=== PATIENT | male | born 1945 | race Caucasian/White ===

== ENCOUNTER 2021-02-06 11:47 | Inpatient (IN) | payer MEDICARE, SELFPAY ==
[2021-02-06] VITALS (12 sets, daily range): BP systolic 100–135; BP diastolic 50–76; PULSE 96–146; RESP 20–28; TEMP 36.6–38.1; O2SAT 91–100; BMI 29.0; BMI 32.9
--- NOTE | 2021-02-06 11:32 | ECG_ITS ---
APPROVED REPORT Exam: Resting ECG HR:120 bpm ECG Measurements Heart Rate 120 AXES FL 170 P 53 QRSd 106 QRS -60 QT 306 T 91 QTc 432 Conclusion Sinus tachycardia with fusion complexes Left axis deviation Inferior infarct, age undetermined Anterolateral infarct, age undetermined Abnormal ECG Electronically signed by : Colten Burk, 02/07/2021 15:08:44
--- NOTE | 2021-02-06 11:49 | XR_ITS ---
PROCEDURE: XR CHEST PORTABLE CLINICAL HISTORY: cough COMPARISON: No exams were available for comparison FINDINGS: Median sternotomy and mediastinal clips are noted. The cardiac size is at the upper limit of normal, likely accentuated by AP technique. Subsegmental atelectasis versus infiltrate is noted in the left lower zone. No other lobar consolidation, pleural effusions or pneumothorax. Degenerative changes of the visualized thoracic spine are noted. IMPRESSION: Status post CABG. Subsegmental atelectasis versus infiltrate in the left lower zone. No lobar consolidation. Dictated by: Magy Ortiz 02/06/2021 13:03 Magy Ortiz in [place] 02/06/2021 13:03
--- NOTE | 2021-02-06 12:00 | PC.NURSE ---
PT'S FAMILY AT BEDSIDE
[2021-02-06 12:11] LABS: Adenovirus,PCR Not Detected (NotDetected); Bordetella Pertussis Not Detected (NotDetected); Chlamydophila Pneumoniae, PCR Not Detected (NotDetected); Coronavirus 19, PCR Not Detected (NotDetected); Coronavirus 229E Not Detected (NotDetected); Coronavirus NL63 Not Detected (NotDetected); Coronavirus OC43 Not Detected (NotDetected); Coronovirus HKU1,PCR Not Detected (NotDetected); Human Metapneumovirus Not Detected (NotDetected); Influenza A, PCR Not Detected (NotDetected); Influenza AH1, 2009 Not Detected (NotDetected); Influenza AH1, PCR Not Detected (NotDetected); Influenza AH3,PCR Not Detected (NotDetected); Influenza B, PCR Not Detected (NotDetected); Mycoplasma Pneumoniae, PCR Not Detected (NotDetected); Parainfluenza 1, PCR Not Detected (NotDetected); Parainfluenza 2, PCR Not Detected (NotDetected); Parainfluenza 3, PCR Not Detected (NotDetected); Parainfluenza 4, PCR Not Detected (NotDetected); Respiratory Syncytial Virus Not Detected (NotDetected); Rhinovirus/Enterovirus Not Detected (NotDetected)
[2021-02-06 12:19] LABS: ABG Base Excess -10.7 mmol/L (-2.4-2.3); ABG HCO3 14.7 mmhg (22.0-26.0); ABG Oxygen Saturation 92 % (90-100); ABG PCO2 26.8 mmhg (35.0-45.0); ABG PH 7.36 mmol/L (7.35-7.45); ABG PO2 57.7 mmhg (80-100); ABG TCO2 15.6 mmhg (23-27)
[2021-02-06 12:21] LABS: Allen's Test ACCEPTABLE; Oxygen ROOM AIR %; Source L RADIAL
--- NOTE | 2021-02-06 12:34 | HMH.EDWEAK ---
ED Disposition Clinical Impression: Dehydration, Acute respiratory failure with hypoxia Sepsis Qualifiers: Sepsis type: sepsis due to unspecified organism Sepsis acute organ dysfunction status: with acute organ dysfunction Severe sepsis acute organ dysfunction type: acute renal failure Acute renal failure type: unspecified Severe sepsis shock status: without septic shock Qualified Code(s): A41.9 - Sepsis, unspecified organism; R65.20 - Severe sepsis without septic shock; N17.9 - Acute kidney failure, unspecified Left lower lobe pneumonia Qualifiers: Pneumonia type: due to unspecified organism Qualified Code(s): J18.9 - Pneumonia, unspecified organism Renal failure Qualifiers: Renal failure chronicity: acute Acute renal failure type: unspecified Qualified Code(s): N17.9 - Acute kidney failure, unspecified Disposition: Admitted As Inpatient Condition on Discharge: Serious Referrals: PCP,No [Primary Care Provider] - - Critical Care Critical Care Time: Yes Attestation: On 02/06/21, the high probability of a clinically significant, sudden or life threatening deterioration of the following system(s) required my full and direct attention, intervention and personal management. The time I documented below is in addition to time spent performing reported procedures but includes the following listed in this critical care notation. Total Critical Care Time: 30 Vital system(s) involved:: Circulatory Failure, Respiratory Failure My critical care processes included: Assessment & monitoring of V/S, Initial and Re-exams, Data Review/Interpretation, Coordinating Care, Medication Orders and management Medical Decision Making - Medical Records Medical records reviewed: Yes: I reviewed the patient's medical records. - Fernando Inquiry Pt receiving controlled substance: No Vital Signs: 02/06/21 11:50 02/06/21 12:30 02/06/21 13:00 Temperature 98 F Temperature Source Oral Pulse Rate 118 H 113 H Pulse Rate [Radial] 130 H Respiratory Rate 28 H 24 22 Blood Pressure 112/64 100/66 L Blood Pressure [Right Arm] 115/68 Blood Pressure Mean 79 74 Blood Pressure Mean [Right Arm] 83 Blood Pressure Position [Right Arm] Sitting 02 Sat by Pulse Oximetry 92 L 94 L 93 L Oxygen Delivery Method Room Air 02/06/21 13:30 Temperature Temperature Source Pulse Rate 114 H Pulse Rate [Radial] Respiratory Rate 27 H Blood Pressure 114/76 Blood Pressure [Right Arm] Blood Pressure Mean 81 Blood Pressure Mean [Right Arm] Blood Pressure Position [Right Arm] 02 Sat by Pulse Oximetry 94 L Oxygen Delivery Method - Lab Data Lab Results 02/06/21 11:50: Specimen Source L radial, O2 % Room air, ABG pH 7.36, ABG pCO2 26.8 L, ABG pO2 57.7 L, ABG HCO3 14.7 L, ABG Total CO2 15.6 L, ABG O2 Saturation 92, ABG Base Excess -10.7 L, Tin Test Acceptable 02/06/21 12:30: WBC 21.4 H*, RBC 4.34 L, Hgb 14.0 L, Hct 44.4, MCV 102.4 H, MCH 32.3 H, MCHC 31.5 L, RDW 13.4, Plt Count 218, MPV 9.2, Neut % (Auto) 94.6 H, Lymph % (Auto) 3.0 L, [place] % (Auto) 1.8, Eos % (Auto) 0.3, Baso % (Auto) 0.3, Neut # (Auto) 20.2 H, Lymph # (Auto) 0.7, [place] # (Auto) 0.4, Eos # (Auto) 0.1, Baso # (Auto) 0.1, Total Counted 100, Neutrophils % (Manual) 87 H, Band Neutrophils % 7.0, Lymphocytes % (Manual) 4 L, Monocytes % (Manual) 2, Platelet Estimate Normal, RBC Morphology Normal 02/06/21 12:30: PT 13.0 H, INR 1.11 H, APTT 31.0 H 02/06/21 12:30: Sodium 135 L, Potassium 4.9, Chloride 102, Carbon Dioxide 19 L, Anion Gap 18.9 H, BUN 30 H, Creatinine 2.60 H, Estimated Creat Clear 27, Estimated GFR 24 L, Est GFR ( Amer) 29 L, Glucose 364 H, Calcium 9.4, Total Bilirubin 3.4 H, AST 42, ALT 80 H, Alkaline Phosphatase 203 H, Troponin I 0.04 H, NT-Pro-B Natriuret Pep 9270 H, Total Protein 7.7, Albumin 4.1, Globulin 3.6 H, Albumin/Globulin Ratio 1.1, Lipase 23 02/06/21 12:30: Chlamy pneumoniae PCR Not detected, Adenovirus (PCR) Not detected, B. pertussis DNA (PCR) Not detected, Coronavi
[2021-02-06 12:48] LABS: Basophils # 0.1 K/mm3 (0-0.2); Basophils % 0.3 % (0.1-2.0); Eosinophils # 0.1 K/mm3 (0.0-0.4); Eosinophils % 0.3 % (0.1-12.0); Hematocrit 44.4 % (42.0-52.0); Lymphocytes # 0.7 K/mm3 (0.7-4.5); Mean Corpuscular HGB Conc 31.5 g/dL (31.8-35.4); Mean Corpuscular Hemoglobin 32.3 pg (27.0-31.2); Mean Corpuscular Volume 102.4 fl (80-94); Mean Platelet Volume 9.2 fl (7.4-10.4); Monocytes # 0.4 K/mm3 (0.1-1.0); Monocytes % 1.8 % (1.7-9.3); Neutrophils # 20.2 K/mm3 (1.8-7.8); Neutrophils % 94.6 % (37.0-80.0); Platelet Count 218 K/mm3 (142-424); Red Blood Count 4.34 M/mm3 (4.60-6.20); Red Cell Distribution Width 13.4 % (11.5-17.5); White Blood Count 21.4 K/mm3 (4.8-10.8)
[2021-02-06 12:51] LABS: MANUAL DIFFERENTIAL MANUAL DIFFERENTIAL (MANUAL DIFF)
[2021-02-06 12:58] LABS: Lymphocytes % 4 % (10-50); Monocytes % 2 % (2-9); Neutrophils % 87 % (42-76); Platelet Estimate Normal; RBC Morphology Normal; Total Cells Counted 100
[2021-02-06 12:59] LABS: Chloride 102 mmol/L (98-107); Potassium 4.9 mmoL/L (3.5-5.1); Sodium 135 mmol/L (136-145)
--- NOTE | 2021-02-06 13:00 | PC.NURSE ---
UPDATED ON PLAN OF CARE
[2021-02-06 13:01] LABS: Blood Urea Nitrogen 30 mg/dl (9-20); Creatinine Clearance Estimated 27 mL/min (50-200); Estimated Glomerular Filt Rate 24 ml/min (>60); GFR (African American) 29 ML/MIN (>60)
[2021-02-06 13:02] LABS: Alanine Aminotransferase 80 U/L (12-78); Albumin Level 4.1 g/dl (3.5-5.0); Albumin/Globulin Ratio 1.1 (1.1-1.8); Alkaline Phosphatase 203 U/L (38-126); Anion Gap 18.9 mEq/L (5-15); Aspartate Amino Transferase 42 U/L (17-59); Bilirubin,Total 3.4 mg/dl (0.2-1.3); Calcium 9.4 mg/dl (8.4-10.2); Carbon Dioxide 19 mmol/L (22.0-30.0); Globulin 3.6 g/dL (1.3-3.2); Glucose 364 mg/dl (74-100); Lipase 23 U/L (23-300); Total Protein,Serum 7.7 g/dl (6.3-8.2)
[2021-02-06 13:05] LABS: INR 1.11 (0.9-1.1)
[2021-02-06 13:10] LABS: NT Pro Brain Natriuretic Pep. 9270 pg/mL (0-450)
[2021-02-06 13:13] LABS: Troponin I 0.04 ng/ml (0.00-0.034)
[2021-02-06 13:53] LABS: Microscopic, Urine URINE MICROSCOPIC (MICROSCOPIC)
[2021-02-06 13:55] LABS: Lactic Acid 6.4 mmol/L (0.7-2.1)
[2021-02-06 13:55] LABS: Appearance,Urine CLEAR (Clear); Blood, Urine TRACE-L (Negative); Color,Urine YELLOW (Yellow); Glucose,Urine (UA) 3+ (Negative); Ketones,Urine TRACE (Negative); Leukocyte Esterase,Urine Negative (Negative); Nitrate,Urine Negative (Negative); PH,Urine 5.5 (5.0-8.5); Protein,Urine 1+ (Negative); Specific Gravity, Urine 1.025 (1.005-1.030); Urobilinogen,Urine 0.2 EU/dl (0.2)
[2021-02-06 13:58] LABS: Bilirubin,Urine 1+ (Negative)
[2021-02-06 14:10] LABS: RBC,Urine Occasional #/hpf (0-3); Squamous Epithelial Cell,Urine Occasional #/hpf (0-5)
--- NOTE | 2021-02-06 15:00 | PC.NURSE ---
REPORT CALLED TO FLOOR
--- NOTE | 2021-02-06 15:05 | PC.NURSE ---
Pt arrived to the floor at this time.
--- NOTE | 2021-02-06 15:19 | P.CONPHA_ITS ---
[facility] VTE Monitoring - Patient Demographics Admission date: 02/06/21 Report Date: 02/06/21 Time: 15:19 Allergies/Adverse Reactions: Patient Allergies No Known Allergies Allergy (Verified 02/06/21 11:56) Height: 1.68 m Weight: 81.647 kg Patient Problems: Current Active Problems Sepsis (Acute) Dehydration (Acute) Left lower lobe pneumonia (Acute) Acute respiratory failure with hypoxia (Acute) Renal failure (Acute) - VTE Risk Labs: VTE Related Lab Results Hgb 14.0 g/dL (14.1-18.0) L 02/06/21 12:30 Hct 44.4 % (42.0-52.0) 02/06/21 12:30 Plt Count 218 K/mm3 (142-424) 02/06/21 12:30 PT 13.0 seconds (10.1-12.5) H 02/06/21 12:30 INR 1.11 (0.9-1.1) H 02/06/21 12:30 APTT 31.0 seconds (22.8-30.6) H 02/06/21 12:30 BUN 30 mg/dl (9-20) H 02/06/21 12:30 Creatinine 2.60 mg/dl (0.66-1.25) H 02/06/21 12:30 Estimated Creat Clear 27 mL/min (50-200) 02/06/21 12:30 - Prophylaxis VTE Prophylaxis Ordered?: Yes Types of VTE Prophylaxis: TEDS Knee High, Pharmacological Location of Applied Device: Bilateral Lower Extremeties Pharmacologic Type: Enoxaparin
--- NOTE | 2021-02-06 16:04 | HMH.CNCARD ---
History of Present Illness Consult date: 02/06/21 Requesting physician: Luis E Conteh Consult reason: shortness of breath Chief complaint: SOA, weakness Additional Medical History:: 1. Coronary artery disease A. History of bypass, 2019, [facility] in [place] B. Ischemic cardiomyopathy with ejection fraction 25-30% with discussion regarding AICD made in [place] but elected to hold off since patient was moving to [place] 2. Diabetes mellitus, insulin requiring, treated for many years A. Chronic kidney disease, creatinine 2.6, creatinine clearance 27, GFR 24, 02/2021 3. Hypertension 4. Hyperlipidemia 5. History of CVA with left side affected, approximately 6. History of paroxysmal atrial fibrillation, on Eliquis therapy History of present illness: 75-year-old male presented to the emergency department with some generalized weakness and difficulty breathing. Patient is actually moved up here the last few months from [place] and is living with his daughter. He is a longstanding history of heart disease and heart failure. Patient states that over the last 3 days he has been having some generalized weakness. Is been unable to get out of bed. He states that he feels like his breathing is worse. He has had to sleep in a recliner the last few nights. Denies any cough or hemoptysis. Is not having any associated chest pain or palpitations. No abdominal pain. No diarrhea. Denies any fevers or chills. He is not having any headache or change in vision. No focal weakness. The above per Dr. Thompson Patient confirms above account. He became alarmed when he vomited today which he relates occurring prior to both his heart attack and subsequent bypass as well as his stroke. He does relate severe cardiomyopathy with EF of 25 to 30% with discussion regarding AICD by his physicians up in [place] but due to his impending plans to move to [place] it was elected to hold off on that. He moved down about four 5 months ago and has not established a physician. He notes unquenchable thirst recently with increasing shortness of breath and lower extremity edema. Cardiology consulted due to elevated BNP, tachycardic heart rate and significant cardiac history. Patient does admit to missing some of his medications both morning and evening time. EKG is sinus tachycardia 120 bpm with evidence of prior inferior and anterolateral MN. Left axis deviation noted. [facility] History Medical History: Reports:: Diabetes Mellitus Type 2, Heart Murmur, Hyperlipidemia, Hypertension, Myocardial Infarction Denies:: Cancer, Diabetes Mellitus Type 1, Internal Pacemaker, MRSA *Have you ever received a pneumonia vaccine?: Yes *Have you received a flu vaccine this season?: No Other Surgeries: Yes: CABG, Open Heart Surgery. No: Pacemaker Amputation: No Fractures: No - *Social History Last grade of school completed: High school graduate Alcohol Intake: never *Occupational Status:: retired Housing: other Household Members: other *Travel in the last 8 weeks: None Family Hx:: Non-contributory Meds Home Medications Medication Instructions Recorded Confirmed Type Acarbose 25 mg PO AC 02/06/21 02/06/21 History Apixaban [Eliquis 5mg Tablet] 5 mg PO BID 02/06/21 02/06/21 History Aspirin [Aspirin 81mg chewable 81 mg PO DAILY 02/06/21 02/06/21 History tab] Atorvastatin Calcium [Lipitor 40mg 20 mg PO HS 02/06/21 02/06/21 History Tab] Bumetanide [Bumex 1mg tablet] 1 mg PO DIRECTED 02/06/21 02/06/21 History Tamsulosin HCl 0.4 mg PO DAILY 02/06/21 02/06/21 History carvediloL [Carvedilol 3.125mg Tab] 3.125 mg PO BID 02/06/21 02/06/21 History Allergies Allergy/AdvReac Type Severity Reaction Status Date / Time No Known Allergies Allergy Verified 02/06/21 11:56 Exam Vital signs and Labs for Last 24 Hours: Temp Pulse Resp BP Pulse Ox 98 F 112 H 22 100/55 L 100 02/06/21 15:05 02/06/21 15:05
--- NOTE | 2021-02-06 16:24 | HMH.HP ---
*Admission Date: 02/06/21 <Lupe Steiner 02/06/21 16:32> *Chief complaint: Shortness of breath, vomiting, fatigue <Lupe Steiner 02/06/21 16:32> *History of present illness: 75-year-old male presented to the emergency department with some generalized weakness and difficulty breathing. Patient actually moved up here the last few months from [place] and is living with his daughter. He is a longstanding history of heart disease and heart failure. Patient states that over the last 3 days he has been having some generalized weakness. Has been unable to get out of bed. He states that he feels like his breathing is worse. He has had to sleep in a recliner the last few nights. Denies any cough or hemoptysis. Is not having any associated chest pain or palpitations. No abdominal pain. No diarrhea. Denies any fevers or chills. He is not having any headache or change in vision. No focal weakness. (above as per ER physician) He was evaluated in the emergency room and his white count was found to be 21,000. A chest x-ray revealed subsegmental atelectasis versus infiltrate in the left lower lobe. He was tachycardic and his renal functions were elevated. His lactic acid was elevated as well. He was felt to be septic and was started on sepsis protocol and admitted for further evaluation and treatment. His BNP and troponin were also elevated, therefore cardiology was consulted. Of note he does say he had some vomiting yesterday but none today. <Lupe Steiner 02/06/21 16:32> [place] History I have reviewed the patient's past medical history: Yes <Lupe Steiner 02/06/21 16:32> Medical History: Reports:: Atrial Fibrillation, Congestive Heart Failure, Coronary Artery Disease, Cerebrovascular Accident, Diabetes Mellitus Type 2, Heart Murmur, Hyperlipidemia, Hypertension, Myocardial Infarction Denies:: Cancer, Diabetes Mellitus Type 1, Internal Pacemaker, MRSA <Lupe Steiner 02/06/21 16:32> *Have you ever received a pneumonia vaccine?: Yes <Lupe Steiner 02/06/21 16:32> *Have you received a flu vaccine this season?: No <Lupe Steiner 02/06/21 16:32> Other Surgeries: Yes: CABG, Hernia Repair, Open Heart Surgery, Other (Pilonidal cyst x 2). No: Pacemaker <Lupe Steiner 02/06/21 16:32> Amputation: No <Lupe Steiner 02/06/21 16:32> Fractures: No <Lupe Steiner 02/06/21 16:32> - *Social History Last grade of school completed: High school graduate <Lupe Steiner 02/06/21 16:32> Alcohol Intake: never <Lupe Steiner 02/06/21 16:32> *Occupational Status:: retired <Lupe Steiner 02/06/21 16:32> Housing: other <Lupe Steiner 02/06/21 16:32> Household Members: other <Lupe Steiner 02/06/21 16:32> *Travel in the last 8 weeks: None <Lupe Steiner 02/06/21 16:32> Family Hx:: Coronary Artery Disease <Lupe Steiner 02/06/21 16:32> Review of Systems - Constitutional Reports fatigue, Reports weakness, Denies fever(s) <Lupe Steiner 02/06/21 16:32> - Eyes Denies blurry vision, Denies double vision <Lupe Steiner 02/06/21 16:32> - ENT Reports nasal congestion, Denies sore throat <Lupe Steiner 02/06/21 16:32> - *Cardiovascular Reports shortness of breath, Denies chest pain, Denies rapid, pounding, or irregular heartbeat <Lupe Steiner 02/06/21 16:32> - *Respiratory Reports chest congestion, Reports cough, Reports shortness of breath <Lupe Steiner 02/06/21 16:32> - *Gastrointestinal Reports vomiting, Denies abdominal pain, Denies loose stools, Denies nausea <Lupe Steiner 02/06/21 16:32> - *Genitourinary Denies difficulty urinating, Denies painful urination <Lupe Steiner 02/06/21 16:32> - *Musculoskeletal Reports joint pain (bilateral hips) <Lupe Steiner 02/06/21 16:32> - *Neurologic Reports weakness, Denies headache(s), Denies dizziness <Lupe Steiner - 02/06/21 16:32> Meds Home Medications Medication Instructions Recorded Confirmed Type Acarbose 25 mg PO
[2021-02-06 17:24] LABS: Troponin I 0.05 ng/ml (0.00-0.034)
[2021-02-06 17:28] LABS: Reflex Lactic Add Lactic Reflex
[2021-02-06 18:26] LABS: Lactic Acid Follow Up (RFLX 1) 5.8 mmol/L (0.7-2.1)
--- NOTE | 2021-02-06 18:27 | PC.NURSE ---
Dr. Conteh notified of lactic acid 5.8
[2021-02-06 18:31] LABS: Troponin I 0.05 ng/ml (0.00-0.034)
--- NOTE | 2021-02-06 19:32 | PC.NURSE ---
RA SATS 91%. RETURN PT TO 2LPM NC
[2021-02-06 20:05] LABS: Reflex Lactic (2 hrs) Add Lactic Reflex
[2021-02-06 21:15] LABS: Lactic Acid Follow up (RFLX 2) 3.9 mmol/L (0.7-2.1)
[2021-02-06 23:45] LABS: POC Glucose,Bedside 181 (70-110)
[2021-02-06 23:45] LABS: POC Glucose,Bedside 275 (70-110)
[2021-02-07] VITALS (11 sets, daily range): BP systolic 107–129; BP diastolic 56–64; PULSE 76–100; RESP 17–24; TEMP 36.7–37.1; O2SAT 80–99; BMI 32.7
[2021-02-07 05:35] LABS: POC Glucose,Bedside 112 (70-110)
--- NOTE | 2021-02-07 05:44 | PC.NURSE ---
Received call from LAB, Lily Hunter at 0540 stating that Patient has 3 Positive Blood Cultures. Two Aerobic bottles=GRAM + Cocci in chains and one Anaerobic bottle=GRAM + Cocci in chains. Will notify provider.
--- NOTE | 2021-02-07 05:49 | PC.NURSE ---
Lea WEST at 0545, awaiting response
--- NOTE | 2021-02-07 05:54 | PC.NURSE ---
Pt admitted for Sepsis, MAP WDL and Systolic not below 100 during this shift. Patient afebril. Fluids at 150 mL per hour and ABx administered per order. Pt in NAD, resting comfortably with eyes closed. Will continue to monitor for any acute changes.
[2021-02-07 06:46] LABS: Chloride 110 mmol/L (98-107); Potassium 4.8 mmoL/L (3.5-5.1); Sodium 133 mmol/L (136-145)
[2021-02-07 06:49] LABS: Alanine Aminotransferase 33 U/L (12-78); Albumin Level 2.7 g/dl (3.5-5.0); Albumin/Globulin Ratio 0.8 (1.1-1.8); Alkaline Phosphatase 115 U/L (38-126); Anion Gap 9.8 mEq/L (5-15); Aspartate Amino Transferase 30 U/L (17-59); Bilirubin,Total 1.9 mg/dl (0.2-1.3); Blood Urea Nitrogen 29 mg/dl (9-20); Carbon Dioxide 18 mmol/L (22.0-30.0); Creatinine Clearance Estimated 40 mL/min (50-200); Estimated Glomerular Filt Rate 35 ml/min (>60); GFR (African American) 42 ML/MIN (>60); Globulin 3.2 g/dL (1.3-3.2); Total Protein,Serum 5.9 g/dl (6.3-8.2)
[2021-02-07 06:50] LABS: Glucose 112 mg/dl (74-100)
[2021-02-07 06:59] LABS: Basophils # 0.1 K/mm3 (0-0.2); Basophils % 0.3 % (0.1-2.0); Eosinophils # 0.1 K/mm3 (0.0-0.4); Eosinophils % 0.4 % (0.1-12.0); Lymphocytes # 1.2 K/mm3 (0.7-4.5); Lymphocytes % 7.5 % (10-50); Mean Corpuscular HGB Conc 32.6 g/dL (31.8-35.4); Mean Corpuscular Hemoglobin 32.3 pg (27.0-31.2); Mean Corpuscular Volume 98.9 fl (80-94); Mean Platelet Volume 9.5 fl (7.4-10.4); Monocytes # 0.5 K/mm3 (0.1-1.0); Neutrophils # 14.1 K/mm3 (1.8-7.8); Neutrophils % 88.7 % (37.0-80.0); Platelet Count 155 K/mm3 (142-424); Red Blood Count 3.43 M/mm3 (4.60-6.20); White Blood Count 15.9 K/mm3 (4.8-10.8)
[2021-02-07 07:14] LABS: MANUAL DIFFERENTIAL MANUAL DIFFERENTIAL (MANUAL DIFF)
[2021-02-07 07:31] LABS: Calcium 7.7 mg/dl (8.4-10.2)
--- NOTE | 2021-02-07 08:29 | HMH.ACPN2 ---
<Lupe Steiner - Last Filed: 02/07/21 08:29> Internal Medicine - PN: Subj *Date: 02/07/21 *Time: 08:29 Interval history: Patient states he is feeling a little bit better this morning. His shortness of breath is improved slightly. He denies any pain other than in his buttocks from sitting in the bed all night. He states he was able to rest and eat a little bit of food. Exam Vital signs and Labs for Last 24 Hours: Temp Pulse Resp BP Pulse Ox 98.1 F 100 H 20 113/60 96 02/07/21 07:39 02/07/21 07:39 02/07/21 07:39 02/07/21 07:39 02/07/21 07:39 Laboratory Results - last 24 hr 02/06/21 11:50: Specimen Source L radial, O2 % Room air, ABG pH 7.36, ABG pCO2 26.8 L, ABG pO2 57.7 L, ABG HCO3 14.7 L, ABG Total CO2 15.6 L, ABG O2 Saturation 92, ABG Base Excess -10.7 L, Tin Test Acceptable 02/06/21 12:30: WBC 21.4 H*, RBC 4.34 L, Hgb 14.0 L, Hct 44.4, MCV 102.4 H, MCH 32.3 H, MCHC 31.5 L, RDW 13.4, Plt Count 218, MPV 9.2, Neut % (Auto) 94.6 H, Lymph % (Auto) 3.0 L, [place] % (Auto) 1.8, Eos % (Auto) 0.3, Baso % (Auto) 0.3, Neut # (Auto) 20.2 H, Lymph # (Auto) 0.7, [place] # (Auto) 0.4, Eos # (Auto) 0.1, Baso # (Auto) 0.1, Total Counted 100, Neutrophils % (Manual) 87 H, Band Neutrophils % 7.0, Lymphocytes % (Manual) 4 L, Monocytes % (Manual) 2, Platelet Estimate Normal, RBC Morphology Normal 02/06/21 12:30: PT 13.0 H, INR 1.11 H, APTT 31.0 H 02/06/21 12:30: Sodium 135 L, Potassium 4.9, Chloride 102, Carbon Dioxide 19 L, Anion Gap 18.9 H, BUN 30 H, Creatinine 2.60 H, Estimated Creat Clear 27, Estimated GFR 24 L, Est GFR ( Amer) 29 L, Glucose 364 H, Calcium 9.4, Total Bilirubin 3.4 H, AST 42, ALT 80 H, Alkaline Phosphatase 203 H, Troponin I 0.04 H, NT-Pro-B Natriuret Pep 9270 H, Total Protein 7.7, Albumin 4.1, Globulin 3.6 H, Albumin/Globulin Ratio 1.1, Lipase 23 02/06/21 12:30: Chlamy pneumoniae PCR Not detected, Adenovirus (PCR) Not detected, B. pertussis DNA (PCR) Not detected, Coronavirus OC43 (PCR) Not detected, Coronavirus HKU1 (PCR) Not detected, Coronavirus 229E (PCR) Not detected, SARS-CoV-2 (PCR) Not detected, Coronavirus NL63 (PCR) Not detected, Human Metapneumovir PCR Not detected, Influenza A (H1) PCR Not detected, Influ A (H1N1/09) PCR Not detected, Influenza A (H3) PCR Not detected, Influenza Type A (PCR) Not detected, Influenza Type B (PCR) Not detected, M. pneumoniae (PCR) Not detected, Parainfluenza 1 (PCR) Not detected, Parainfluenza 2 (PCR) Not detected, Parainfluenza 3 (PCR) Not detected, Parainfluenza 4 (PCR) Not detected, RSV (PCR) Not detected, Entero/Rhino (PCR) Not detected 02/06/21 13:14: Lactate 6.4 H 02/06/21 13:45: Urine Color Yellow, Urine Appearance Clear, Urine pH 5.5, Ur Specific [place] 1.025, Urine Protein 1+, Urine Glucose (UA) 3+, Urine Ketones Trace, Urine Blood Trace-l, Urine Nitrate Negative, Urine Bilirubin 1+ A, Urine Urobilinogen 0.2, Ur Leukocyte Esterase Negative, Urine RBC Occasional, Urine WBC 3-5, Ur Squamous Epith Cells Occasional, Urine Bacteria None 02/06/21 16:48: Troponin I 0.05 H 02/06/21 16:59: POC Glucose 275 H 02/06/21 17:50: Troponin I 0.05 H 02/06/21 17:50: Lactate 5.8 H 02/06/21 20:55: Lactate 3.9 H 02/06/21 21:05: POC Glucose 181 H 02/07/21 05:24: POC Glucose 112 H 02/07/21 05:51: WBC 15.9 H D, RBC 3.43 L, Hct 34.0 L, MCV 98.9 H, MCH 32.3 H, MCHC 32.6, RDW 14.0, Plt Count 155 D, MPV 9.5, Neut % (Auto) 88.7 H, Lymph % (Auto) 7.5 L, [place] % (Auto) 3.0, Eos % (Auto) 0.4, Baso % (Auto) 0.3, Neut # (Auto) 14.1 H, Lymph # (Auto) 1.2, [place] # (Auto) 0.5, Eos # (Auto) 0.1, Baso # (Auto) 0.1 02/07/21 05:51: Sodium 133 L, Potassium 4.8, Chloride 110 H, Carbon Dioxide 18 L, Anion Gap 9.8, BUN 29 H, Creatinine 1.90 H D, Estimated Creat Clear 40, Estimated GFR 35 L, Est GFR ( Amer) 42 L D, Glucose 112 H D, Calcium 7.7 L D, Total Bilirubin 1.9 H, AST 30 D, ALT 33 D, Alkaline Phosphatase 115, Total Protein 5.9 L, Albumin 2.7 L D, Globulin 3.2, Albumin/Globulin Ratio 0.8 L I & O for Last 24 hours:
[2021-02-07 09:04] LABS: Eosinophils % 1 % (0-3); Lymphocytes % 9 % (10-50); Monocytes % 4 % (2-9); Neutrophils % 86 % (42-76); Platelet Estimate Normal; RBC Morphology Normal; Total Cells Counted 100
[2021-02-07 09:08] LABS: Hemoglobin 11.1 g/dL (14.1-18.0)
--- NOTE | 2021-02-07 10:45 | HMH.PHAINT ---
HOME MEDICATIONS RECONCILED FROM [facility] ([place]) AND DR. MENDEZ'S OFFICE ( ). DAUGHTER SAYS SHE WILL BRING IN HIS HOME MEDICATION BOTTLES.
[2021-02-07 12:00] LABS: POC Glucose,Bedside 133 (70-110)
--- NOTE | 2021-02-07 12:29 | PC.NURSE ---
DR. MICHAELS AWARE OF BLOOD CULTURES. NNO.
--- NOTE | 2021-02-07 14:43 | PC.NURSE ---
RA OBTAINED ON PT. 97%.
[2021-02-07 17:14] LABS: POC Glucose,Bedside 151 (70-110)
--- NOTE | 2021-02-07 19:08 | PC.NURSE ---
return patient to 2lpm n/c
--- NOTE | 2021-02-07 19:39 | PC.NURSE ---
PT HAD A GOOD DAY. PT AMBULATED TO CHAIR AND BED WITH 2 ASSIST AND A WALKER. PT DID WELL. PT HAS NOT EXPRESSED ANY PAIN OR SOB. HE IS NOW ON RA. VSS. SAFETY ALARM ON. CALL BRANCH WITHIN REACH.
[2021-02-07 21:04] LABS: POC Glucose,Bedside 139 (70-110)
[2021-02-08] VITALS (7 sets, daily range): BP systolic 113–140; BP diastolic 63–79; PULSE 80–100; RESP 16; TEMP 36.7–37.3; O2SAT 97–98; BMI 34.0
--- NOTE | 2021-02-08 04:23 | PC.NURSE ---
No acute changes. Pt has slept at intervals this shift. No complaints stated. VSS. Pt is currently on 1L O2 NC. Lungs noted to have crackles to bases. BS active. F/C draining to bedside with clear, yellow urine. Medications administered per mar. Call light within reach. No concerns noted at this time. Will continue to monitor.
[2021-02-08 06:47] LABS: Basophils % 0.2 % (0.1-2.0); Eosinophils # 0.4 K/mm3 (0.0-0.4); Eosinophils % 3.8 % (0.1-12.0); Hematocrit 34.7 % (42.0-52.0); Hemoglobin 10.6 g/dL (14.1-18.0); Lymphocytes # 0.8 K/mm3 (0.7-4.5); Lymphocytes % 6.9 % (10-50); Mean Corpuscular HGB Conc 30.7 g/dL (31.8-35.4); Mean Corpuscular Hemoglobin 30.6 pg (27.0-31.2); Mean Corpuscular Volume 99.9 fl (80-94); Mean Platelet Volume 9.5 fl (7.4-10.4); Monocytes # 0.3 K/mm3 (0.1-1.0); Monocytes % 2.8 % (1.7-9.3); Neutrophils # 9.4 K/mm3 (1.8-7.8); Neutrophils % 86.2 % (37.0-80.0); Platelet Count 189 K/mm3 (142-424); Red Blood Count 3.47 M/mm3 (4.60-6.20); Red Cell Distribution Width 13.4 % (11.5-17.5); White Blood Count 10.9 K/mm3 (4.8-10.8)
[2021-02-08 06:51] LABS: MANUAL DIFFERENTIAL MANUAL DIFFERENTIAL (MANUAL DIFF)
[2021-02-08 07:01] LABS: POC Glucose,Bedside 141 (70-110)
[2021-02-08 07:04] LABS: Chloride 107 mmol/L (98-107); Potassium 4.4 mmoL/L (3.5-5.1); Sodium 133 mmol/L (136-145)
[2021-02-08 07:07] LABS: Anion Gap 8.4 mEq/L (5-15); Blood Urea Nitrogen 30 mg/dl (9-20); Calcium 7.9 mg/dl (8.4-10.2); Carbon Dioxide 22 mmol/L (22.0-30.0); Creatinine Clearance Estimated 44 mL/min (50-200); Estimated Glomerular Filt Rate 37 ml/min (>60); GFR (African American) 44 ML/MIN (>60); Glucose 148 mg/dl (74-100)
[2021-02-08 08:24] LABS: Eosinophils % 4 % (0-3); Lymphocytes % 7 % (10-50); Monocytes % 3 % (2-9); Neutrophils % 86 % (42-76); RBC Morphology Normal; Total Cells Counted 100
[2021-02-08 08:25] LABS: Platelet Estimate Normal
--- NOTE | 2021-02-08 08:28 | HMH.ACPN2 ---
Internal Medicine - PN: Subj *Date: 02/08/21 *Time: 08:54 Interval history: Patient feels better today, no new complaints. Exam Vital signs and Labs for Last 24 Hours: Temp Pulse Resp BP Pulse Ox 99.1 F 96 H 16 140/69 98 02/08/21 07:38 02/08/21 07:38 02/08/21 07:38 02/08/21 07:38 02/08/21 07:38 Laboratory Results - last 24 hr 02/07/21 05:51: Hgb 11.1 L D, Total Counted 100, Neutrophils % (Manual) 86 H, Lymphocytes % (Manual) 9 L, Monocytes % (Manual) 4, Eosinophils % (Manual) 1, Platelet Estimate Normal, RBC Morphology Normal 02/07/21 11:51: POC Glucose 133 H 02/07/21 17:05: POC Glucose 151 H 02/07/21 20:53: POC Glucose 139 H 02/08/21 06:25: WBC 10.9 H D, RBC 3.47 L, Hgb 10.6 L, Hct 34.7 L, MCV 99.9 H, MCH 30.6, MCHC 30.7 L, RDW 13.4, Plt Count 189, MPV 9.5, Neut % (Auto) 86.2 H, Lymph % (Auto) 6.9 L, [place] % (Auto) 2.8, Eos % (Auto) 3.8, Baso % (Auto) 0.2, Neut # (Auto) 9.4 H, Lymph # (Auto) 0.8, [place] # (Auto) 0.3, Eos # (Auto) 0.4, Baso # (Auto) 0.0, Total Counted 100, Neutrophils % (Manual) 86 H, Lymphocytes % (Manual) 7 L, Monocytes % (Manual) 3, Eosinophils % (Manual) 4 H, Platelet Estimate Normal, RBC Morphology Normal 02/08/21 06:25: Sodium 133 L, Potassium 4.4, Chloride 107, Carbon Dioxide 22 D, Anion Gap 8.4, BUN 30 H, Creatinine 1.80 H, Estimated Creat Clear 44, Estimated GFR 37 L, Est GFR ( Amer) 44 L, Glucose 148 H, Calcium 7.9 L 02/08/21 06:52: POC Glucose 141 H Vital Signs - 24 hr 02/07/21 11:39 02/07/21 12:00 02/07/21 16:00 Temperature 98.0 F 98.0 F 98.5 F Pulse Rate 90 92 H Pulse Rate [Radial] 87 87 76 Respiratory Rate 18 18 17 Blood Pressure [Right Arm] 108/57 L 108/57 L 107/64 L 02 Sat by Pulse Oximetry 99 99 95 02/07/21 19:07 02/07/21 19:30 02/07/21 20:00 Temperature 98.6 F Pulse Rate 100 H Pulse Rate [Radial] 94 H Respiratory Rate 20 Blood Pressure [Right Arm] 129/61 02 Sat by Pulse Oximetry 80 L 96 02/07/21 23:55 02/08/21 00:00 02/08/21 04:00 Temperature 98.7 F 98.1 F Pulse Rate 90 80 Pulse Rate [Radial] 85 89 Respiratory Rate 24 16 Blood Pressure [Right Arm] 111/62 113/64 02 Sat by Pulse Oximetry 98 98 02/08/21 07:38 Temperature 99.1 F Pulse Rate Pulse Rate [Radial] 96 H Respiratory Rate 16 Blood Pressure [Right Arm] 140/69 02 Sat by Pulse Oximetry 98 I & O for Last 24 hours: Intake & Output 02/05/21 02/06/21 02/07/21 02/08/21 23:59 23:59 23:59 23:59 Intake Total 3120 / 3120 3070 / 3070 240 / 240 Output Total 300 / 600 4050 / 4050 Balance 2820 / 2520 -980 / -980 240 / 240 Weight 192 lb 191 lb 12.835 oz 199 lb Microbiology Reports for the Last 24 Hours: Microbiology 02/06/21 13:14 Blood Blood Culture - Preliminary Gram Positive Cocci 02/06/21 13:14 Blood Blood Culture - Preliminary Gram Positive Cocci 02/06/21 Unknown Sputum - Expectorated Sputum Gram Stain - Final 02/06/21 Unknown Sputum - Expectorated Sputum Sputum Culture - Preliminary - Constitutional no acute distress - *Routine HEENT Exam Head: Present: normocephalic Eye: Present: EOMI ENT: Present: mucous membranes moist - *Routine Neck Exam Present: supple. Absent: lymphadenopathy - *Routine Respiratory Exam Present: crackles (few bibasilar). Absent: wheezes - *Routine Cardiovascular Exam Present: RRR - *Routine Abdominal Exam Present: soft, normoactive bowel sounds. Absent: tenderness - *Routine Extremities Exam Absent: cyanosis, clubbing, edema - *Routine Skin Exam Present: warm. Absent: rash - *Routine Neurological Exam Present: alert Assessment and Plan (1) Acute respiratory failure with hypoxia Status: Acute Category: Medical Code(s): J96.01 - Acute respiratory failure with hypoxia (2) Sepsis Status: Acute Qualifiers: Sepsis type: sepsis due to unspecified organism Sepsis acute organ dysfunction status: with acute organ dysfunct
[2021-02-08 11:05] LABS: POC Glucose,Bedside 215 (70-110)
--- NOTE | 2021-02-08 16:05 | PC.NURSE ---
pt has done well today. pt has ambulated with walker and one staff member to chair, and to bathroom for a shower using the shower chair. His olivas was removed at 1515. no complaints this shift. pt currently taking a nap in bed. safety in place, call light within reach. vss. will cont. to monitor.
[2021-02-08 17:01] LABS: POC Glucose,Bedside 174 (70-110)
[2021-02-08 20:38] LABS: POC Glucose,Bedside 168 (70-110)
[2021-02-09] VITALS (8 sets, daily range): BP systolic 101–135; BP diastolic 40–63; PULSE 74–95; RESP 16–21; TEMP 36.8–37.2; O2SAT 91–95; BMI 32.9
--- NOTE | 2021-02-09 04:24 | PC.NURSE ---
shift summary pts lung sounds are diminishedwith some coarse crackles with sats maintained 94% or above on room air, with a rate ranging from 18-21. pt is alert and oriented X4. pt is able to get up and walk with assist X1. pt denies any pain, nausea, vomiting or diarrhea.
[2021-02-09 05:36] LABS: POC Glucose,Bedside 156 (70-110)
--- NOTE | 2021-02-09 07:58 | HMH.ACPN2 ---
Internal Medicine - PN: Subj *Date: 02/09/21 *Time: 07:58 Interval history: Patient did well overnight, no new complaints. Exam Vital signs and Labs for Last 24 Hours: Temp Pulse Resp BP Pulse Ox 99.0 F 95 H 18 119/60 95 02/09/21 07:44 02/09/21 07:44 02/09/21 07:44 02/09/21 07:44 02/09/21 07:44 Laboratory Results - last 24 hr 02/08/21 06:25: Total Counted 100, Neutrophils % (Manual) 86 H, Lymphocytes % (Manual) 7 L, Monocytes % (Manual) 3, Eosinophils % (Manual) 4 H, Platelet Estimate Normal, RBC Morphology Normal 02/08/21 10:58: POC Glucose 215 H 02/08/21 16:54: POC Glucose 174 H 02/08/21 20:28: POC Glucose 168 H 02/09/21 05:26: POC Glucose 156 H Vital Signs - 24 hr 02/08/21 08:00 02/08/21 12:00 02/08/21 16:00 Temperature 98.4 F 98.0 F Pulse Rate 100 H 80 80 Pulse Rate [Radial] 92 H 91 H Respiratory Rate 16 16 Blood Pressure [Right Arm] 125/67 122/63 02 Sat by Pulse Oximetry 97 98 02/08/21 20:00 02/09/21 00:00 02/09/21 04:00 Temperature 98.8 F 99.0 F 98.7 F Pulse Rate 80 85 80 Pulse Rate [Radial] 93 H 87 94 H Respiratory Rate 16 21 19 Blood Pressure [Right Arm] 126/79 101/57 L 110/57 L 02 Sat by Pulse Oximetry 98 95 94 L 02/09/21 07:44 Temperature 99.0 F Pulse Rate Pulse Rate [Radial] 95 H Respiratory Rate 18 Blood Pressure [Right Arm] 119/60 02 Sat by Pulse Oximetry 95 I & O for Last 24 hours: Intake & Output 02/06/21 02/07/21 02/08/21 02/09/21 23:59 23:59 23:59 23:59 Intake Total 3120 / 3120 3070 / 3070 840 / 840 240 / 240 Output Total 300 / 600 4050 / 4050 Balance 2820 / 2520 -980 / -980 840 / 840 240 / 240 Weight 192 lb 191 lb 12.835 oz 199 lb 193 lb Microbiology Reports for the Last 24 Hours: Microbiology 02/06/21 Unknown Sputum - Expectorated Sputum Gram Stain - Final 02/06/21 Unknown Sputum - Expectorated Sputum Sputum Culture - Preliminary 02/06/21 13:14 Blood Blood Culture - Preliminary Streptococcus pneumoniae 02/06/21 13:14 Blood Blood Culture - Preliminary Streptococcus pneumoniae - Constitutional no acute distress - *Routine HEENT Exam Head: Present: normocephalic Eye: Present: EOMI ENT: Present: mucous membranes moist - *Routine Neck Exam Present: supple. Absent: lymphadenopathy - *Routine Respiratory Exam Present: rhonchi (few). Absent: wheezes - *Routine Cardiovascular Exam Present: RRR - *Routine Abdominal Exam Present: soft, normoactive bowel sounds. Absent: tenderness - *Routine Extremities Exam Present: edema (1+ bilateral legs). Absent: cyanosis, clubbing - *Routine Skin Exam Present: warm. Absent: rash - *Routine Neurological Exam Present: alert, oriented X3 Assessment and Plan (1) Acute respiratory failure with hypoxia Status: Acute Category: Medical Code(s): J96.01 - Acute respiratory failure with hypoxia (2) Sepsis Status: Acute Qualifiers: Sepsis type: sepsis due to unspecified organism Sepsis acute organ dysfunction status: with acute organ dysfunction Severe sepsis acute organ dysfunction type: acute renal failure Acute renal failure type: unspecified Severe sepsis shock status: without septic shock Qualified Code(s): A41.9 - Sepsis, unspecified organism; R65.20 - Severe sepsis without septic shock; N17.9 - Acute kidney failure, unspecified Category: Medical Code(s): A41.9 - Sepsis, unspecified organism (3) Left lower lobe pneumonia Status: Acute Qualifiers: Pneumonia type: due to unspecified organism Qualified Code(s): J18.9 - Pneumonia, unspecified organism Category: Medical Code(s): J18.9 - Pneumonia, unspecified organism (4) Renal failure Status: Acute Qualifiers: Renal failure chronicity: acute Acute renal failure type: unspecified Qualified Code(s): N17.9 - Acute kidney failure, unspecified Category: Medical Code(s): N19 - Unspecified kidney failure
[2021-02-09 11:43] LABS: POC Glucose,Bedside 249 (70-110)
[2021-02-09 16:47] LABS: POC Glucose,Bedside 183 (70-110)
--- NOTE | 2021-02-09 18:04 | PC.NURSE ---
PT HAS DONE WELL TODAY. PT HAS HAD A LOT OF URINE OUTPUT. BOTH CONTINENT AND INCONTINENT. NO C/O OF PAIN THIS SHIFT. SAFETY IN PLACE. CALL BRANCH IN PLACE. VSS. WILL CONT. TO MONITOR.
[2021-02-09 21:25] LABS: POC Glucose,Bedside 186 (70-110)
[2021-02-10] VITALS (11 sets, daily range): BP systolic 101–117; BP diastolic 51–76; PULSE 84–100; RESP 16–18; TEMP 36.8–38.2; O2SAT 90–96; BMI 32.2
--- NOTE | 2021-02-10 04:19 | PC.NURSE ---
shift summary pts lung sounds are diminished with some coarse crackles with sats maintained at 90% or above on room air with a rate ranging from 16-18. pt denies any pain, nausea, vomiting, or diarrhea.
[2021-02-10 06:05] LABS: POC Glucose,Bedside 160 (70-110)
[2021-02-10 06:25] LABS: Basophils # 0.1 K/mm3 (0-0.2); Basophils % 0.6 % (0.1-2.0); Eosinophils # 0.2 K/mm3 (0.0-0.4); Eosinophils % 2.2 % (0.1-12.0); Hematocrit 35.7 % (42.0-52.0); Hemoglobin 11.1 g/dL (14.1-18.0); Lymphocytes # 0.9 K/mm3 (0.7-4.5); Lymphocytes % 9.2 % (10-50); Mean Corpuscular HGB Conc 31.2 g/dL (31.8-35.4); Mean Corpuscular Hemoglobin 30.6 pg (27.0-31.2); Mean Corpuscular Volume 98.1 fl (80-94); Mean Platelet Volume 8.5 fl (7.4-10.4); Monocytes # 0.6 K/mm3 (0.1-1.0); Monocytes % 5.8 % (1.7-9.3); Neutrophils % 82.2 % (37.0-80.0); Platelet Count 229 K/mm3 (142-424); Red Blood Count 3.64 M/mm3 (4.60-6.20); Red Cell Distribution Width 13.3 % (11.5-17.5); White Blood Count 9.7 K/mm3 (4.8-10.8)
[2021-02-10 06:38] LABS: Chloride 101 mmol/L (98-107); Potassium 4.1 mmoL/L (3.5-5.1); Sodium 131 mmol/L (136-145)
[2021-02-10 06:41] LABS: Anion Gap 10.1 mEq/L (5-15); Blood Urea Nitrogen 31 mg/dl (9-20); Calcium 8.5 mg/dl (8.4-10.2); Carbon Dioxide 24 mmol/L (22.0-30.0); Creatinine Clearance Estimated 47 mL/min (50-200); Estimated Glomerular Filt Rate 42 ml/min (>60); GFR (African American) 51 ML/MIN (>60); Glucose 172 mg/dl (74-100)
--- NOTE | 2021-02-10 08:03 | XR_ITS ---
PROCEDURE: XR CHEST PORTABLE PICC PLAC CLINICAL HISTORY: Confirm PICC line placement COMPARISON: CR XR CHEST PORTABLE from 02/06/2021 FINDINGS: Status post left upper extremity PICC line placement. The tip overlies the caval atrial region/distal SVC and could be withdrawn 1-2 cm.. There are low lung volumes with vascular crowding in the lung bases. There has been a prior CABG. IMPRESSION: Left upper extremity PICC line tip in the region of the SVC/atrial area and could be withdrawn 1-2 cm to assure non atrial location. Dictated by: Tin Sharp MD 02/10/2021 14:23 Tin Sharp MD in [place] 02/10/2021 14:23
--- NOTE | 2021-02-10 08:13 | HMH.ACPN2 ---
Internal Medicine - PN: Subj *Date: 02/10/21 *Time: 08:13 Interval history: Patient feels better today. Exam Vital signs and Labs for Last 24 Hours: Temp Pulse Resp BP Pulse Ox 99.3 F 97 H 18 101/53 L 93 L 02/10/21 08:00 02/10/21 08:00 02/10/21 08:00 02/10/21 08:00 02/10/21 08:00 Laboratory Results - last 24 hr 02/09/21 11:30: POC Glucose 249 H 02/09/21 16:40: POC Glucose 183 H 02/09/21 21:16: POC Glucose 186 H 02/10/21 05:39: POC Glucose 160 H 02/10/21 05:57: WBC 9.7, RBC 3.64 L, Hgb 11.1 L, Hct 35.7 L, MCV 98.1 H, MCH 30.6, MCHC 31.2 L, RDW 13.3, Plt Count 229, MPV 8.5, Neut % (Auto) 82.2 H, Lymph % (Auto) 9.2 L, [place] % (Auto) 5.8, Eos % (Auto) 2.2, Baso % (Auto) 0.6, Neut # (Auto) 8.0 H, Lymph # (Auto) 0.9, [place] # (Auto) 0.6, Eos # (Auto) 0.2, Baso # (Auto) 0.1 02/10/21 05:57: Sodium 131 L, Potassium 4.1, Chloride 101, Carbon Dioxide 24, Anion Gap 10.1, BUN 31 H, Creatinine 1.60 H, Estimated Creat Clear 47, Estimated GFR 42 L, Est GFR ( Amer) 51 L, Glucose 172 H, Calcium 8.5 I & O for Last 24 hours: Intake & Output 02/07/21 02/08/21 02/09/21 02/10/21 23:59 23:59 23:59 23:59 Intake Total 3070 / 3070 840 / 840 840 / 840 240 / 240 Output Total 4050 / 4050 Balance -980 / -980 840 / 840 840 / 840 240 / 240 Weight 191 lb 12.835 oz 199 lb 193 lb 189 lb Microbiology Reports for the Last 24 Hours: Microbiology 02/06/21 Unknown Sputum - Expectorated Sputum Gram Stain - Final 02/06/21 Unknown Sputum - Expectorated Sputum Sputum Culture - Preliminary 02/06/21 13:14 Blood Blood Culture - Preliminary Streptococcus pneumoniae 02/06/21 13:14 Blood Blood Culture - Preliminary Streptococcus pneumoniae - Constitutional no acute distress - *Routine HEENT Exam Head: Present: normocephalic Eye: Present: EOMI, PERRL ENT: Present: mucous membranes moist - *Routine Neck Exam Present: supple. Absent: lymphadenopathy - *Routine Respiratory Exam Present: crackles (few bibasilar). Absent: wheezes - *Routine Cardiovascular Exam Present: RRR - *Routine Abdominal Exam Present: soft, normoactive bowel sounds. Absent: tenderness - *Routine Extremities Exam Present: edema (1+ both legs). Absent: cyanosis, clubbing - *Routine Skin Exam Present: warm. Absent: rash - *Routine Neurological Exam Present: alert, oriented X3 Assessment and Plan (1) Acute respiratory failure with hypoxia Status: Acute Category: Medical Code(s): J96.01 - Acute respiratory failure with hypoxia (2) Sepsis Status: Acute Qualifiers: Sepsis type: sepsis due to unspecified organism Sepsis acute organ dysfunction status: with acute organ dysfunction Severe sepsis acute organ dysfunction type: acute renal failure Acute renal failure type: unspecified Severe sepsis shock status: without septic shock Qualified Code(s): A41.9 - Sepsis, unspecified organism; R65.20 - Severe sepsis without septic shock; N17.9 - Acute kidney failure, unspecified Category: Medical Code(s): A41.9 - Sepsis, unspecified organism (3) Left lower lobe pneumonia Status: Acute Qualifiers: Pneumonia type: due to unspecified organism Qualified Code(s): J18.9 - Pneumonia, unspecified organism Category: Medical Code(s): J18.9 - Pneumonia, unspecified organism (4) Renal failure Status: Acute Qualifiers: Renal failure chronicity: acute Acute renal failure type: unspecified Qualified Code(s): N17.9 - Acute kidney failure, unspecified Category: Medical Code(s): N19 - Unspecified kidney failure (5) Dehydration Status: Acute Category: Medical Code(s): E86.0 - Dehydration (6) Ischemic cardiomyopathy Status: Acute Category: Medical Code(s): I25.5 - Ischemic cardiomyopathy (7) Insulin-requiring or dependent type II diabetes mellitus Status: Acute Category: Medical Code(s): E11.9 - Type 2 diabetes kerry
--- NOTE | 2021-02-10 09:34 | SW/DCPLANNER ---
Addendum entered by Estelita Harris 02/10/21 15:02: RECEIVED A MESSAGE FROM [facility] AND PATIENT HAS BEEN ACCEPTED.. HE WILL DISCHARGE THERE [facility] PENDING NO SETBACKS.. HE DID RECEIVE HIS PICC THIS AFTERNOON.... I DID MAKE CONTACT WITH DAUGHTER AND LET HER KNOW AND SHE WAS GLAD A BED WAS OBTAINED. SHE STATED SHE WILL BE HERE IN THE MORNING AND I WILL GIVE HER DIRECTIONS THERE.. DR MICHAELS STATED HE WOULD ASK DR CONN TO FOLLOW HIM WHILE HE IS THERE... Original Note: MADE ROUNDS WITH DR MICHAELS THIS MORNING AND DAUGHTER REQUESTED HIM TO GO TO A SHORT TERM FACILITY TO GET HIS IV ANTIBIOTICS AND SOME THERAPY AND THEN RETURN HOME... SHE STATED THE SON WILL BE COMING IN TO BE CLOSER TO HIS PARENTS AND THEY ARE ADAMANT THEY WANT THIS TO ONLY BE SHORT TERM. I HAVE INQUIRED ABOUT A BED AT [facility] SINCE THEY LIVE IN [facility]... WAITING TO HEAR BACK AND WORK TOWARD A DISPOSITION FOR TUES IF A BED IS OBTAINED...
--- NOTE | 2021-02-10 10:59 | HMH.PTEV ---
Physical Therapy Evaluation Rehab PT IP Evaluation Start: 02/10/21 08:08 Freq: ONCE Status: Active Protocol: Document 02/10/21 10:20 PHORNE (Rec: 02/10/21 10:59 PHORNE [id number]) Subjective/History History History 75 yowm adm to [facility] with CAP and sepsis. He reports he lives with family, no steps peri enter the home, uses a RW for ambulation at baseline. Subjective Subjective He reports he feels better overall, but is sore all over . Rehab PT IP Eval Objective Appearance Patient Behavior Appropriate Patient Orientation Person,Place,Time Difficulty following instructions none Speech Pattern Clear Ambulation Patient Able to Ambulate Yes Ambulation Observation IP General Gait Pattern Observation Wide Based Gait,Shuffling Step Ambulation Distance (feet) 20 Ambulation Assistive Device Standard Walker Ambulation Ability Contact Guard/Hand Hold Balance Ability to Arise Able, uses arms to help Sitting Balance Steady, safe Standing Balance Narrow stance w/o support Dynamic Sitting Balance Ability Good Dynamic Standing Balance Ability Fair Transfers Bed Transfer Ability Minimal x 1 (25% assist) Chair Transfer Ability Minimal x 1 (25% assist) Sit to Stand Bed Transfer Ability Minimal x 1 (25% assist) Sit to Stand Chair Transfer Ability Minimal x 1 (25% assist) ROM All Extremities PT ROM Status WFL MMT All Extremities PT MMT WFL Rehab PT IP prob,goals,plan Problems Date of Evaluation: 02/10/21 PT IP Problems Bed Mobility,Transfers,Gait Rehab Potential Rehab Potential Good Plan PT Intervention Plan Bed Mobility,Transfers,Gait, Therapeutic Exercise PT Plan Frequency BID Duration LOS Discharge Goals Bed Transfer Ability Contact Guard/Hand Hold Sit to Stand Chair Transfer Ability Contact Guard/Hand Hold Ambulation Assistive Device Rolling Walker Ambulation Distance (feet) 40 Discharge Plan PT Discharge Plan Pt is appropriate to return home once medically stable. G -code Required No Eval Complexity Eval Charge Codes 13206 - Moderate Complexity PHYSICIAN CERTIFICATION: I certify the specified therapy services for Sincere Machado are required, authorized, and reviewed every 30 days.
--- NOTE | 2021-02-10 11:17 | HMH.PNCARD ---
Subjective Date: 02/10/21 Time: 11:00 Principal diagnosis: Resp Failure Interval history: This is a 75-year-old white gentleman who was admitted to the hospital with respiratory failure. He does have positive blood cultures and is currently getting IV antibiotics. The patient is scheduled to have a PICC line placed today for IV antibiotics for the next 14 days. He does have a history of ischemic cardiomyopathy. He did have an echocardiogram which shows an ejection fraction of 20 to 25%. The patient reports that he knew his ejection fraction was low and did wear a LifeVest previously by another personal development educator but because he was moving here his LifeVest was taken off and no AICD was implanted. The patient has severe LV dysfunction and is increased risk for sudden cardiac . He does need an AICD to be implanted but because of his positive blood cultures we will hold off on implanting the AICD until he has had at least 2 weeks of antibiotics before proceeding with implantation. In the meantime the patient will need to have a LifeVest put back on because of his increased risk of sudden cardiac due to his severe LV dysfunction. The patient is agreeable to this. He denies any chest pain or pressure. He denies any shortness of breath. He states his edema has improved. He denies any fever, chills, nausea, vomiting, diarrhea, PND or orthopnea. Exam Vital signs and Labs for Last 24 Hours: Temp Pulse Resp BP Pulse Ox 99.3 F 97 H 18 101/53 L 93 L 02/10/21 08:00 02/10/21 08:00 02/10/21 08:00 02/10/21 08:00 02/10/21 08:00 Laboratory Results - last 24 hr 02/09/21 11:30: POC Glucose 249 H 02/09/21 16:40: POC Glucose 183 H 02/09/21 21:16: POC Glucose 186 H 02/10/21 05:39: POC Glucose 160 H 02/10/21 05:57: WBC 9.7, RBC 3.64 L, Hgb 11.1 L, Hct 35.7 L, MCV 98.1 H, MCH 30.6, MCHC 31.2 L, RDW 13.3, Plt Count 229, MPV 8.5, Neut % (Auto) 82.2 H, Lymph % (Auto) 9.2 L, [place] % (Auto) 5.8, Eos % (Auto) 2.2, Baso % (Auto) 0.6, Neut # (Auto) 8.0 H, Lymph # (Auto) 0.9, [place] # (Auto) 0.6, Eos # (Auto) 0.2, Baso # (Auto) 0.1 02/10/21 05:57: Sodium 131 L, Potassium 4.1, Chloride 101, Carbon Dioxide 24, Anion Gap 10.1, BUN 31 H, Creatinine 1.60 H, Estimated Creat Clear 47, Estimated GFR 42 L, Est GFR ( Amer) 51 L, Glucose 172 H, Calcium 8.5 I & O for Last 24 hours: Intake & Output 02/07/21 02/08/21 02/09/21 02/10/21 23:59 23:59 23:59 23:59 Intake Total 3070 / 3070 840 / 840 840 / 840 240 / 240 Output Total 4050 / 4050 Balance -980 / -980 840 / 840 840 / 840 240 / 240 Weight 191 lb 12.835 oz 199 lb 193 lb 189 lb Microbiology Reports for the Last 24 Hours: Microbiology 02/06/21 Unknown Sputum - Expectorated Sputum Gram Stain - Final 02/06/21 Unknown Sputum - Expectorated Sputum Sputum Culture - Preliminary - Constitutional no acute distress, obese - *Routine HEENT Exam Head: Present: normocephalic, atraumatic Eye: Present: EOMI, PERRL ENT: Present: mucous membranes moist - *Routine Neck Exam Present: supple, full ROM, normal carotid upstroke. Absent: JVD, carotid bruit, lymphadenopathy - *Routine Respiratory Exam Present: CTA bilaterally - *Routine Cardiovascular Exam Present: RRR, Normal S1, Normal S2. Absent: murmur - *Routine Abdominal Exam Present: soft, normoactive bowel sounds. Absent: tenderness, distended - *Routine Extremities Exam Present: edema (Trace bilateral lower extremity edema), full ROM, pulses intact, normal capillary refill. Absent: cyanosis, clubbing - *Routine Skin Exam Present: intact, warm. Absent: erythema, rash - *Routine Neurological Exam Present: alert, oriented X3, CN II-XII intact. Absent: sensory deficit, motor deficit Progress Note: A&P (1) Ischemic cardiomyopathy Status: Acute (2) Acute respiratory failure with hypoxia Status: Acute (3) Sepsis Status: Acute (4) Left lower lobe pneumonia Status: Acute (5) Renal failure Status: Acu
[2021-02-10 12:04] LABS: POC Glucose,Bedside 317 (70-110)
--- NOTE | 2021-02-10 13:52 | DIET.NUTRFU ---
Pt with no nutritional concerns. PO intakes 50-75%, however pt makes many menu selections to choose from. BG moderate, avg.-170, he did have a critical reading of 317 this afternoon. Weight has remained stable within 5#, trace BLE edema present. He has been provided diet edu for carb consistent low sodium diet, continuing to monitor.
--- NOTE | 2021-02-10 16:00 | HMH.ACPN ---
Internal Medicine - PN: Subj *Date: 02/10/21 *Time: 16:00 Exam Vital signs and Labs for Last 24 Hours: Temp Pulse Resp BP Pulse Ox 100.7 F H 85 18 117/69 93 L 02/10/21 15:52 02/10/21 15:52 02/10/21 15:52 02/10/21 15:52 02/10/21 15:52 Laboratory Results - last 24 hr 02/09/21 16:40: POC Glucose 183 H 02/09/21 21:16: POC Glucose 186 H 02/10/21 05:39: POC Glucose 160 H 02/10/21 05:57: WBC 9.7, RBC 3.64 L, Hgb 11.1 L, Hct 35.7 L, MCV 98.1 H, MCH 30.6, MCHC 31.2 L, RDW 13.3, Plt Count 229, MPV 8.5, Neut % (Auto) 82.2 H, Lymph % (Auto) 9.2 L, [place] % (Auto) 5.8, Eos % (Auto) 2.2, Baso % (Auto) 0.6, Neut # (Auto) 8.0 H, Lymph # (Auto) 0.9, [place] # (Auto) 0.6, Eos # (Auto) 0.2, Baso # (Auto) 0.1 02/10/21 05:57: Sodium 131 L, Potassium 4.1, Chloride 101, Carbon Dioxide 24, Anion Gap 10.1, BUN 31 H, Creatinine 1.60 H, Estimated Creat Clear 47, Estimated GFR 42 L, Est GFR ( Amer) 51 L, Glucose 172 H, Calcium 8.5 02/10/21 11:50: POC Glucose 317 H* I & O for Last 24 hours: Intake & Output 02/07/21 02/08/21 02/09/21 02/10/21 23:59 23:59 23:59 23:59 Intake Total 3070 / 3070 840 / 840 840 / 840 360 / 360 Output Total 4050 / 4050 Balance -980 / -980 840 / 840 840 / 840 360 / 360 Weight 87 kg 90.265 kg 87.543 kg 85.729 kg Microbiology Reports for the Last 24 Hours: Microbiology 02/06/21 Unknown Sputum - Expectorated Sputum Gram Stain - Final 02/06/21 Unknown Sputum - Expectorated Sputum Sputum Culture - Preliminary Assessment and Plan (1) Ischemic cardiomyopathy Status: Acute Category: Medical Code(s): I25.5 - Ischemic cardiomyopathy (2) Acute respiratory failure with hypoxia Status: Acute Category: Medical Code(s): J96.01 - Acute respiratory failure with hypoxia (3) Sepsis Status: Acute Qualifiers: Sepsis type: sepsis due to unspecified organism Sepsis acute organ dysfunction status: with acute organ dysfunction Severe sepsis acute organ dysfunction type: acute renal failure Acute renal failure type: unspecified Severe sepsis shock status: without septic shock Qualified Code(s): A41.9 - Sepsis, unspecified organism; R65.20 - Severe sepsis without septic shock; N17.9 - Acute kidney failure, unspecified Category: Medical Code(s): A41.9 - Sepsis, unspecified organism (4) Left lower lobe pneumonia Status: Acute Qualifiers: Pneumonia type: due to unspecified organism Qualified Code(s): J18.9 - Pneumonia, unspecified organism Category: Medical Code(s): J18.9 - Pneumonia, unspecified organism (5) Renal failure Status: Acute Qualifiers: Renal failure chronicity: acute Acute renal failure type: unspecified Qualified Code(s): N17.9 - Acute kidney failure, unspecified Category: Medical Code(s): N19 - Unspecified kidney failure (6) Dehydration Status: Acute Category: Medical Code(s): E86.0 - Dehydration (7) Insulin-requiring or dependent type II diabetes mellitus Status: Acute Category: Medical Code(s): E11.9 - Type 2 diabetes mellitus without complications; Z79.4 - terminal manager (current) use of insulin (8) History of coronary artery bypass graft Status: Acute Category: Surgical Code(s): Z95.1 - Presence of aortocoronary bypass graft (9) Paroxysmal atrial fibrillation Status: Acute Category: Medical Code(s): I48.0 - Paroxysmal atrial fibrillation (10) History of stroke Status: Acute Category: Medical Code(s): Z86.73 - Personal history of transient ischemic attack (TIA), and cerebral infarction without residual deficits (11) Bacteremia due to Gram-positive bacteria Status: Acute Category: Medical Code(s): R78.81 - Bacteremia (12) Septicemia due to Streptococcus pneumonia Status: Acute Category: Medical Code(s): A40.3 - Sepsis due to Streptococcus pneumoniae (13) CAD (coronary artery disease) Status: Chronic Category: Medical Code(s): I25.10 - Atherosclerotic heart disease of
[2021-02-10 16:39] LABS: POC Glucose,Bedside 136 (70-110)
--- NOTE | 2021-02-10 19:40 | PC.NURSE ---
Pt alert and oriented x 4. RR even and unlabored. Did give prn tylenol for temp of 100.2 and applied cool clothes. Have given report to Cuco Muñoz RN. Pt is in NAD and denies paion at this time. PICC placed to LORI this shift and made Dr. Conteh aware rep is supposed to be here in am for life vest placement. CB in reach. VSS.
--- NOTE | 2021-02-10 20:02 | PC.NURSE ---
FOUNF PT ON RA SATS WERE 91%
[2021-02-10 20:20] LABS: POC Glucose,Bedside 185 (70-110)
[2021-02-11] VITALS: BP 122/61; PULSE 80; PULSE 84; RESP 16; TEMP 36.9; O2SAT 96
[2021-02-11 03:36] VITALS: BP 116/74; PULSE 85; RESP 14; TEMP 37; O2SAT 94
[2021-02-11 04:00] VITALS: PULSE 80
--- NOTE | 2021-02-11 04:02 | PC.NURSE ---
A&OX4. PT TOLERATING RA WELL T/O SHIFT. PT HAS DRY NON-PRODUCTIVE INTERMITTENT COUGH. PT REMAINS NSR ON TELE T/O NIGHT. PT HAS HAD NO C/O THUS FAR. PT HAS BEEN INCONTINENT T/O SHIFT. BRIEF CHANGED NEEDED AND PT TURNED EVERY 2 HOURS. PT IS ABLE TO ASSIST IN TURNING HIMSELF WELL. NO C/O, VSS WILL CONTINUE TO MONITOR.
[2021-02-11 05:30] LABS: POC Glucose,Bedside 167 (70-110)
[2021-02-11 05:55] VITALS: BMI 30.5
[2021-02-11 05:57] LABS: Basophils % 0.4 % (0.1-2.0); Eosinophils # 0.3 K/mm3 (0.0-0.4); Hematocrit 34.2 % (42.0-52.0); Hemoglobin 11.1 g/dL (14.1-18.0); Lymphocytes # 0.9 K/mm3 (0.7-4.5); Lymphocytes % 9.3 % (10-50); Mean Corpuscular HGB Conc 32.5 g/dL (31.8-35.4); Mean Corpuscular Hemoglobin 32.2 pg (27.0-31.2); Mean Corpuscular Volume 99.3 fl (80-94); Mean Platelet Volume 8.7 fl (7.4-10.4); Monocytes # 0.5 K/mm3 (0.1-1.0); Monocytes % 4.8 % (1.7-9.3); Neutrophils % 82.4 % (37.0-80.0); Platelet Count 220 K/mm3 (142-424); Red Blood Count 3.44 M/mm3 (4.60-6.20); Red Cell Distribution Width 13.5 % (11.5-17.5); White Blood Count 9.7 K/mm3 (4.8-10.8)
[2021-02-11 06:08] LABS: Chloride 102 mmol/L (98-107); Sodium 131 mmol/L (136-145)
[2021-02-11 06:09] LABS: Potassium 4.4 mmoL/L (3.5-5.1)
[2021-02-11 06:12] LABS: Anion Gap 7.4 mEq/L (5-15); Blood Urea Nitrogen 26 mg/dl (9-20); Calcium 8.3 mg/dl (8.4-10.2); Carbon Dioxide 26 mmol/L (22.0-30.0); Creatinine Clearance Estimated 47 mL/min (50-200); Estimated Glomerular Filt Rate 45 ml/min (>60); GFR (African American) 55 ML/MIN (>60); Glucose 185 mg/dl (74-100)
--- NOTE | 2021-02-11 07:59 | HMH.ACPN2 ---
<Bridgette Montenegro - Last Filed: 02/11/21 07:59> Internal Medicine - PN: Subj *Date: 02/11/21 *Time: 07:59 Interval history: Patient feels he is doing okay. His back is bothering him. Daughter said he has been slightly confused. He is eating okay. He worked with physical therapy yesterday. He states he is just a little bit short of breath. He denies chest pain. He is wearing his LifeVest. PICC line was placed yesterday. Plans to go to skilled facility today. This a.m. CBC revealed white blood cell count of 9700 with a hemoglobin of 11.1 and hematocrit of 34.2. Blood chemistries show sodium of 131 and potassium 4.4 renal function has improved with a BUN of 26 and creatinine of 1.5. Exam Vital signs and Labs for Last 24 Hours: Temp Pulse Resp BP Pulse Ox 98.6 F 80 14 116/74 94 L 02/11/21 03:36 02/11/21 04:00 02/11/21 03:36 02/11/21 03:36 02/11/21 03:36 Laboratory Results - last 24 hr 02/10/21 11:50: POC Glucose 317 H* 02/10/21 16:32: POC Glucose 136 H 02/10/21 20:00: POC Glucose 185 H 02/11/21 05:12: POC Glucose 167 H 02/11/21 05:45: WBC 9.7, RBC 3.44 L, Hgb 11.1 L, Hct 34.2 L, MCV 99.3 H, MCH 32.2 H, MCHC 32.5, RDW 13.5, Plt Count 220, MPV 8.7, Neut % (Auto) 82.4 H, Lymph % (Auto) 9.3 L, [place] % (Auto) 4.8, Eos % (Auto) 3.0, Baso % (Auto) 0.4, Neut # (Auto) 8.0 H, Lymph # (Auto) 0.9, [place] # (Auto) 0.5, Eos # (Auto) 0.3, Baso # (Auto) 0.0 02/11/21 05:45: Sodium 131 L, Potassium 4.4, Chloride 102, Carbon Dioxide 26, Anion Gap 7.4, BUN 26 H, Creatinine 1.50 H, Estimated Creat Clear 47, Estimated GFR 45 L, Est GFR ( Amer) 55 L, Glucose 185 H, Calcium 8.3 L I & O for Last 24 hours: Intake & Output 02/08/21 02/09/21 02/10/21 02/11/21 11:59 11:59 11:59 11:59 Intake Total 600 / 600 840 / 840 840 / 840 1245 / 1245 Output Total 3400 / 3400 Balance -2800 / -2800 840 / 840 840 / 840 1245 / 1245 Weight 199 lb 193 lb 189 lb 179 lb Microbiology Reports for the Last 24 Hours: Microbiology 02/06/21 Unknown Sputum - Expectorated Sputum Gram Stain - Final 02/06/21 Unknown Sputum - Expectorated Sputum Sputum Culture - Preliminary - Constitutional no acute distress Comments: Sitting on bedside tilted for back comfort. Eating his breakfast. - *Routine Respiratory Exam Present: crackles (Bibasilar) - *Routine Cardiovascular Exam Present: RRR - *Routine Abdominal Exam Present: soft, normoactive bowel sounds. Absent: tenderness - *Routine Extremities Exam Absent: edema, calf tenderness - *Routine Neurological Exam Present: alert Speaks coherently Assessment and Plan (1) Ischemic cardiomyopathy Status: Acute Category: Medical Code(s): I25.5 - Ischemic cardiomyopathy (2) Acute respiratory failure with hypoxia Status: Acute Category: Medical Code(s): J96.01 - Acute respiratory failure with hypoxia (3) Sepsis Status: Acute Qualifiers: Sepsis type: sepsis due to unspecified organism Sepsis acute organ dysfunction status: with acute organ dysfunction Severe sepsis acute organ dysfunction type: acute renal failure Acute renal failure type: unspecified Severe sepsis shock status: without septic shock Qualified Code(s): A41.9 - Sepsis, unspecified organism; R65.20 - Severe sepsis without septic shock; N17.9 - Acute kidney failure, unspecified Category: Medical Code(s): A41.9 - Sepsis, unspecified organism (4) Left lower lobe pneumonia Status: Acute Qualifiers: Pneumonia type: due to unspecified organism Qualified Code(s): J18.9 - Pneumonia, unspecified organism Category: Medical Code(s): J18.9 - Pneumonia, unspecified organism (5) Renal failure Status: Acute Qualifiers: Renal failure chronicity: acute Acute renal failure type: unspecified Qualified Code(s): N17.9 - Acute kidney failure, unspecified Category: Medical Code(s): N19 - Unspecified kidney failure (6) Dehydration Status: Acute Category: Me
[2021-02-11 08:00] VITALS: BP 135/71; PULSE 92; RESP 20; TEMP 36.4; O2SAT 97
[2021-02-11 08:21] VITALS: PULSE 90
--- NOTE | 2021-02-11 08:23 | HMH.DCSUM ---
General - General Admission date:: 02/06/21 <Luis E Conteh - 02/11/21 09:03> 02/06/21 <Bridgette Montenegro - 02/11/21 08:52> Discharge date: 02/11/21 <Bridgette Montenegro - 02/11/21 08:52> HPI HPI: 75-year-old male presented to the emergency department with some generalized weakness and difficulty breathing. Patient actually here the last few months from [place] and is living with his daughter. He is noted to have a longstanding history of heart disease and heart failure. Patient stated that over the last 3 days he had been having some generalized weakness and had been unable to get out of bed. He stated that he felt like his breathing was worse. He had to sleep in a recliner the previous few nights. He denied any cough or hemoptysis. He was not having any associated chest pain or palpitations and no abdominal pain or diarrhea. He denied any fevers or chills. He was not having any headache or change in vision or focal weakness. (above as per ER physician) He was evaluated in the emergency room and his white count was found to be 21,000. A chest x-ray revealed subsegmental atelectasis versus infiltrate in the left lower lobe. He was tachycardic and his renal functions were elevated. His lactic acid was elevated as well. He was felt to be septic and was started on sepsis protocol and admitted for further evaluation and treatment. His BNP and troponin were also elevated and therefore cardiology was consulted. Of note he does say he had some vomiting the previous day but none the day of admission. <Bridgette Montenegro - 02/11/21 08:52> Hospital Course Hospital Course: On admission patient was started on IV fluids and IV antibiotics. Renal function and White blood cell count did improve on meds and IV fluids. Patient was seen by cardiology who noted on ECHO preliminary left ventricular ejection fraction was less than 30% and noting goal directed medical therapy limited by his CKD. Patient was noted to be a candidate for AICD insertion but noted the need to wait untill positive blood cultures adequately treated for at least 2 weeks on antibiotics before proceeding with implantation. Therefore LifeVest was ordered and placed. Heart rate and respiratory status improved daily. Patient did feel better each day. Doxycycline and Zithromax were discontinued. Blood cultures did reveal Streptococcus pneumoniae pansensitive. PICC line was placed . Patient and family wished disposition to rehab Facility for further rehab and care as well as IV antibiotics. Physical therapy was consulted. On 02/11/2021 patient's condition was stable and satisfactory. Bed was obtained at [facility] and he was discharged there for ongoing rehab and care. See discharge orders for medications, activity, and diet. See data for specific test results. <Bridgette Montenegro - 02/11/21 08:52> Objective Vital signs: Temp Pulse Resp BP Pulse Ox 97.5 F L 92 H 20 135/71 97 02/11/21 08:00 02/11/21 08:00 02/11/21 08:00 02/11/21 08:00 02/11/21 08:00 <Luis E Conteh - 02/11/21 09:03> Temp Pulse Resp BP Pulse Ox 98.6 F 80 14 116/74 94 L 02/11/21 03:36 02/11/21 04:00 02/11/21 03:36 02/11/21 03:36 02/11/21 03:36 <Bridgette Montenegro - 02/11/21 08:52> Narrative: Exam Vital signs and Labs for Last 24 Hours: Temp Pulse Resp BP Pulse Ox 98.6 F 80 14 116/74 94 L 02/11/21 03:36 02/11/21 04:00 02/11/21 03:36 02/11/21 03:36 02/11/21 03:36 Laboratory Results - last 24 hr 02/10/21 11:50: POC Glucose 317 H* 02/10/21 16:32: POC Glucose 136 H 02/10/21 20:00: POC Glucose 185 H 02/11/21 05:12: POC Glucose 167 H 02/11/21 05:45: WBC 9.7, RBC 3.44 L, Hgb 11.1 L, Hct 34.2 L, MCV 99.3 H, MCH 32.2 H, MCHC 32.5, RDW 13.5, Plt Count 220, MPV 8.7, Neut % (Auto) 82.4 H, Lymph % (Auto) 9.3 L, [place] % (Auto) 4.8, Eos % (Auto) 3.0, Baso % (Auto) 0.4, Neut # (Auto) 8.0 H, Lymph # (Auto) 0.9, [place] # (Auto) 0.5, Eos #
--- NOTE | 2021-02-11 08:48 | HMH.PNCARD ---
Subjective Date: 02/11/21 Time: 08:30 Principal diagnosis: Resp Failure Interval history: This is a 75-year-old white gentleman who was admitted to the hospital with respiratory failure. He did have positive blood cultures and is currently getting IV antibiotics. He had a PICC line placed yesterday to continue IV antibiotics for approximately 2 weeks. The patient does have a history of ischemic cardiomyopathy with a current ejection fraction of 20 to 25%. The patient is a candidate for AICD placement but given his positive blood cultures Dr. Servin wants to wait until he has had IV antibiotics for at least 2 weeks before proceeding with AICD implantation. In the meantime the patient will has a LifeVest in place due to his increased risk of sudden cardiac secondary to his severe LV dysfunction. This morning he denies any chest pain or pressure. He denies any shortness of breath or edema. He denies any fever, chills, nausea, vomiting, diarrhea, PND or orthopnea. His only complaint this morning is back pain from the bed. He is going to be discharged to [facility] today. Exam Vital signs and Labs for Last 24 Hours: Temp Pulse Resp BP Pulse Ox 97.5 F L 92 H 20 135/71 97 02/11/21 08:00 02/11/21 08:00 02/11/21 08:00 02/11/21 08:00 02/11/21 08:00 Laboratory Results - last 24 hr 02/10/21 11:50: POC Glucose 317 H* 02/10/21 16:32: POC Glucose 136 H 02/10/21 20:00: POC Glucose 185 H 02/11/21 05:12: POC Glucose 167 H 02/11/21 05:45: WBC 9.7, RBC 3.44 L, Hgb 11.1 L, Hct 34.2 L, MCV 99.3 H, MCH 32.2 H, MCHC 32.5, RDW 13.5, Plt Count 220, MPV 8.7, Neut % (Auto) 82.4 H, Lymph % (Auto) 9.3 L, [place] % (Auto) 4.8, Eos % (Auto) 3.0, Baso % (Auto) 0.4, Neut # (Auto) 8.0 H, Lymph # (Auto) 0.9, [place] # (Auto) 0.5, Eos # (Auto) 0.3, Baso # (Auto) 0.0 02/11/21 05:45: Sodium 131 L, Potassium 4.4, Chloride 102, Carbon Dioxide 26, Anion Gap 7.4, BUN 26 H, Creatinine 1.50 H, Estimated Creat Clear 47, Estimated GFR 45 L, Est GFR ( Amer) 55 L, Glucose 185 H, Calcium 8.3 L I & O for Last 24 hours: Intake & Output 02/08/21 02/09/21 02/10/21 02/11/21 23:59 23:59 23:59 23:59 Intake Total 840 / 840 840 / 840 834 / 834 831 / 831 Balance 840 / 840 840 / 840 834 / 834 831 / 831 Weight 199 lb 193 lb 189 lb 179 lb Microbiology Reports for the Last 24 Hours: Microbiology 02/06/21 Unknown Sputum - Expectorated Sputum Gram Stain - Final 02/06/21 Unknown Sputum - Expectorated Sputum Sputum Culture - Preliminary Narrative: Telemetry strip shows sinus rhythm with a rate of 87. - Constitutional no acute distress, obese - *Routine HEENT Exam Head: Present: normocephalic, atraumatic Eye: Present: EOMI, PERRL ENT: Present: mucous membranes moist - *Routine Neck Exam Present: supple, full ROM, normal carotid upstroke. Absent: JVD, carotid bruit, lymphadenopathy - *Routine Respiratory Exam Present: CTA bilaterally - *Routine Cardiovascular Exam Present: RRR, Normal S1, Normal S2. Absent: murmur Comments: LifeVest in place. - *Routine Abdominal Exam Present: soft, normoactive bowel sounds. Absent: tenderness, distended - *Routine Extremities Exam Present: full ROM, pulses intact, normal capillary refill. Absent: cyanosis, clubbing, edema - *Routine Skin Exam Present: intact, warm. Absent: erythema, rash - *Routine Neurological Exam Present: alert, oriented X3, CN II-XII intact. Absent: sensory deficit, motor deficit - Routine Psychiatric Exam Present: normal affect, normal thought process Progress Note: A&P (1) Ischemic cardiomyopathy Status: Acute (2) Acute respiratory failure with hypoxia Status: Acute (3) Sepsis Status: Acute (4) Left lower lobe pneumonia Status: Acute (5) Renal failure Status: Acute (6) Dehydration Status: Acute (7) Insulin-requiring or dependent type II diabetes mellitus Status: Acute (8) History of coronar
[2021-02-11 09:56] LABS: Chol/HDL Ratio 7.2 (1-3.5); Cholesterol 130 mg/dl (140-200); HDL Cholesterol 18 mg/dl (40-60); Triglycerides 190 mg/dl (30-150); VLDL Cholesterol 38 mg/dL (0-40)
[2021-02-11 10:07] LABS: Direct LDL Cholesterol 69.44 mg/dL (100-129)
== END 2021-02-11 10:50 | DRG 871 ==
LOC: ER 14:24 → 2ND 14:45
PROVIDERS: Nurse Practitioner Family; Admitting Provider Family Medicine; Emergency Provider Emergency Medicine; Visit Provider Family Medicine
DX: A40.3 Sepsis due to Streptococcus pneumoniae (principal); J96.01 Acute respiratory failure with hypoxia; R65.20 Severe sepsis without septic shock; J18.9 Pneumonia, unspecified organism; I13.0 Hypertensive heart and chronic kidney disease with heart failure and stage 1 through stage 4 chronic kidney disease, or unspecified chronic kidney disease; Z79.82 Long term (current) use of aspirin; I50.9 Heart failure, unspecified; I25.10 Atherosclerotic heart disease of native coronary artery without angina pectoris; Z86.73 Personal history of transient ischemic attack (TIA), and cerebral infarction without residual deficits; E78.5 Hyperlipidemia, unspecified; Z95.1 Presence of aortocoronary bypass graft; E86.0 Dehydration; I25.5 Ischemic cardiomyopathy; I48.0 Paroxysmal atrial fibrillation; E11.22 Type 2 diabetes mellitus with diabetic chronic kidney disease; N18.9 Chronic kidney disease, unspecified
CPT/HCPCS: 36569; 36415; 71045; 80048; 80053; 80061; 81001; 82803; 82962; 83605; 83690; 83880; 84484; 85007; 85025; 85610; 85730; 87040; 87070; 87077; 87186; 87205; 87581; 87633; 87798; 93005; 93306; 94761; 96365; 96367; 97162; 99284; C1751; J0456

== ENCOUNTER → 2021-03-11 15:07 | Outpatient (CLI) | payer MEDICARE, SELFPAY ==
[2021-03-11 16:34] LABS: Anion Gap 12.9 mEq/L (5-15); Blood Urea Nitrogen 32 mg/dl (9-20); Calcium 9.2 mg/dl (8.4-10.2); Carbon Dioxide 28 mmol/L (22.0-30.0); Chloride 101 mmol/L (98-107); Estimated Glomerular Filt Rate 35 ml/min (>60); GFR (African American) 42 ML/MIN (>60); Glucose 127 mg/dl (74-100); Potassium 4.9 mmoL/L (3.5-5.1); Sodium 137 mmol/L (136-145)
== END ==
PROVIDERS: Visit Provider Physician Assistant
DX: E78.5 Hyperlipidemia, unspecified (principal); I11.0 Hypertensive heart disease with heart failure; I25.10 Atherosclerotic heart disease of native coronary artery without angina pectoris; I25.5 Ischemic cardiomyopathy; I48.0 Paroxysmal atrial fibrillation; I50.22 Chronic systolic (congestive) heart failure; Z86.73 Personal history of transient ischemic attack (TIA), and cerebral infarction without residual deficits; Z95.1 Presence of aortocoronary bypass graft
CPT/HCPCS: 36415; 80048

== ENCOUNTER → 2021-04-02 10:30 | Outpatient (CLI) | payer MEDICARE, SELFPAY ==
[2021-04-02 11:10] LABS: Basophils # 0.1 K/mm3 (0-0.2); Basophils % 1.1 % (0.1-2.0); Eosinophils # 0.6 K/mm3 (0.0-0.4); Eosinophils % 8.2 % (0.1-12.0); Hematocrit 37.8 % (42.0-52.0); Hemoglobin 12.3 g/dL (14.1-18.0); Lymphocytes # 1.3 K/mm3 (0.7-4.5); Lymphocytes % 18.6 % (10-50); Mean Corpuscular HGB Conc 32.7 g/dL (31.8-35.4); Mean Corpuscular Volume 98.1 fl (80-94); Mean Platelet Volume 8.8 fl (7.4-10.4); Monocytes # 0.3 K/mm3 (0.1-1.0); Monocytes % 4.3 % (1.7-9.3); Neutrophils # 4.7 K/mm3 (1.8-7.8); Neutrophils % 67.7 % (37.0-80.0); Platelet Count 183 K/mm3 (142-424); Red Blood Count 3.85 M/mm3 (4.60-6.20); Red Cell Distribution Width 13.5 % (11.5-17.5)
[2021-04-02 11:11] LABS: Appearance,Urine CLEAR (Clear); Bilirubin,Urine Negative (Negative); Blood, Urine Negative (Negative); Color,Urine YELLOW (Yellow); Glucose,Urine (UA) Negative (Negative); Ketones,Urine Negative (Negative); Leukocyte Esterase,Urine Negative (Negative); Nitrate,Urine Negative (Negative); Protein,Urine TRACE (Negative); Urobilinogen,Urine 0.2 EU/dl (0.2)
[2021-04-02 11:30] LABS: Creatinine,Urine Random 201 mg/dL (Not Estab.)
[2021-04-02 11:48] LABS: Albumin Level 3.5 g/dl (3.5-5.0); Anion Gap 11.5 mEq/L (5-15); Blood Urea Nitrogen 31 mg/dl (9-20); Calcium 8.3 mg/dl (8.4-10.2); Carbon Dioxide 27 mmol/L (22.0-30.0); Chloride 102 mmol/L (98-107); Estimated Glomerular Filt Rate 37 ml/min (>60); GFR (African American) 44 ML/MIN (>60); Glucose 199 mg/dl (74-100); Phosphorous 3.2 mg/dl (2.5-4.5); Potassium 4.5 mmoL/L (3.5-5.1); Sodium 136 mmol/L (136-145)
[2021-04-02 11:53] LABS: Microscopic, Urine URINE MICROSCOPIC (MICROSCOPIC)
[2021-04-02 11:56] LABS: Squamous Epithelial Cell,Urine Occasional #/hpf (0-5)
[2021-04-02 12:05] LABS: 25-OH Vitamin D, Total 18.5 ng/mL (30-100)
== END ==
PROVIDERS: Visit Provider Internal Medicine Nephrology
DX: N18.30 Chronic kidney disease, stage 3 unspecified (principal)
CPT/HCPCS: 36415; 80069; 81001; 82306; 82570; 83970; 84155; 85025

== ENCOUNTER → 2021-04-10 14:53 | Outpatient (POV) | payer MEDICARE, SELFPAY | PROVIDERS: Visit Provider Internal Medicine Nephrology | DX: Z00.00 Encounter for general adult medical examination without abnormal findings (principal) ==

== ENCOUNTER → 2021-04-15 12:29 | Outpatient (CLI) | payer MEDICARE, SELFPAY | PROVIDERS: PCP Family Medicine; Visit Provider Physician Assistant | DX: I50.22 Chronic systolic (congestive) heart failure (principal); I25.5 Ischemic cardiomyopathy | CPT/HCPCS: 93308 ==

== ENCOUNTER → 2021-05-05 15:53 | Outpatient (CLI) | payer MEDICARE, SELFPAY | PROVIDERS: PCP Family Medicine; Visit Provider Physician Assistant | DX: Z01.812 Encounter for preprocedural laboratory examination (principal); Z20.822 Contact with and (suspected) exposure to COVID-19 | CPT/HCPCS: U0003 ==

== ENCOUNTER 2021-05-07 08:34 | Day surgery (SDC) | payer MEDICARE, SELFPAY ==
[2021-05-07] VITALS (10 sets, daily range): BP systolic 90–133; BP diastolic 51–86; PULSE 75–121; RESP 17–19; TEMP 36.1–36.6; O2SAT 95–97; BMI 30.1
--- NOTE | 2021-05-07 | IR_ITS ---
APPROVED REPORT Patient Location: Outpatient Desktop Manager: JOSE C Seymour RT (R) PROCEDURES 1. Pocket formation for AICD. 2. Placement of atrial sensing and pacing coil into the right atrial appendage. 3. Placement of a ventricular sensing, pacing and shocking coil in the right ventricular apex. 4. Permanent AICD placement. INDICATION Systolic Congestive Heart Failure, ejection < 35%, [place] Heart Assoication Class 3 Congestive Heart Failure Informed consent was obtained prior to the procedure. COMPLICATIONS NONE Estimated Blood Loss: LESS THAN 10 ML TECHNIQUE 1% Lidocaine with epinephrine used to anesthetized the left anterior aspect of the chest. Scalpel was used to make the initial cutaneous incision while electrocautery was used to dissect down tinto the fascia. The fascia was lifted off the pectoralis muscle and digitally manipulated creating a pocket for the defibrillator. The patient was then placed in Trendelenburg position and the subclavian vein was accessed 2 times via the Selinger technique. A 8 Dutch sheath was placed under fluoroscopic guidance into the subclavian vein. The dilator was removed from the sheath. Using fluoroscopic guidance, the ventricular lead was placed into the right ventricular apex, screwed and secured into place. Electronic interrogation proved acceptable thresholds and voltage within the lead. Using 3-0 silk, the ventricular lead was then secured into place and sheath peeled away. A 6 Dutch fresh sheath and dilator was placed over the existing wire. Using fluoroscopic guidance, the atrial lead was then placed into the right atrial appendage and screwed and secured in place. Electrical interrogation demonstrated acceptable thresholds and voltage number. The atrial lead was then secured into place using 3-0 silk and sheath peeled away. 1 gram of Ancef was used to flush the pocket. All 3 leads were connected to generator and tested via computer. The defibrillator then secured to the fascia. Monocryl was used to close the subcutaneous layers while akin were used to close the cutaneous layer. A pressure dressing was placed and the patient was transferred to the postop holding area in stable condition for postoperative care. INTERROGATION Generator Model number: Priscillant ICD DF4-DR D233 Generator Serial number: [id number] Atrial lead model number: Ingevity + IS=1 Bi Positive Fix RA/RV 52 cm 7841 Atrial lead serial number: [id number] P-wave: 5.0 mV Impedence: 608 Ohms Threshold: 1.0V@0.4ms Current: 1.7 mA Right Ventricular lead model number: Chicken 4-Front Active Fix Dual Coil 59 cm 0675 Right Ventricular lead serial number: [id number] R-wave: 20.0 mV Impedence: 536 Ohms Threshold: 1.0V@0.4ms Shock Impedence: 43 Ohms Current: 1.9 mA Pacing Parameters: Mode: DDD Base/Max Track: 60ppm/130ppm ICD Rate Cutoffs: VT-1: 160 bpm VT-2: 180 bpm VF: 200 bpm Quick convert 14Jx6 ATP, 41Jx6 No diaphragmatic stimulation at 10 volts. IMPRESSION 1. Successful Pocket formation for AICD. 2. Successful Placement of atrial sensing and pacing coil into the right atrial appendage. 3. Successful Placement of a ventricular sensing, pacing and shocking coil in the right ventricular apex. 4. Successful Permanent AICD placement. PLAN 1. Post op wound care, follow up office visit Electronically signed by : Jose Servin, 05/07/2021 14:34:08
--- NOTE | 2021-05-07 09:23 | ECG_ITS ---
APPROVED REPORT Exam: Resting ECG HR:85 bpm ECG Measurements Heart Rate 85 AXES NV 212 P 68 QRSd 114 QRS -46 QT 392 T 85 QTc 466 Conclusion Sinus rhythm with 1st degree AV block Left axis deviation Old inferior and anterolateral changes Abnormal ECG Electronically signed by : Colten Burk, 05/08/2021 17:02:29
[2021-05-07 09:30] LABS: Basophils # 0.1 K/mm3 (0-0.2); Basophils % 1.2 % (0.1-2.0); Eosinophils # 0.6 K/mm3 (0.0-0.4); Hematocrit 37.1 % (42.0-52.0); Hemoglobin 12.2 g/dL (14.1-18.0); Lymphocytes # 1.2 K/mm3 (0.7-4.5); Lymphocytes % 19.4 % (10-50); Mean Corpuscular HGB Conc 32.9 g/dL (31.8-35.4); Mean Corpuscular Volume 97.2 fl (80-94); Mean Platelet Volume 8.7 fl (7.4-10.4); Monocytes # 0.3 K/mm3 (0.1-1.0); Monocytes % 4.7 % (1.7-9.3); Neutrophils % 64.7 % (37.0-80.0); Platelet Count 197 K/mm3 (142-424); Red Blood Count 3.82 M/mm3 (4.60-6.20); Red Cell Distribution Width 13.5 % (11.5-17.5); White Blood Count 6.2 K/mm3 (4.8-10.8)
[2021-05-07 09:45] LABS: Blood Urea Nitrogen 33 mg/dl (9-20); Creatinine Clearance Estimated 38 mL/min (50-200); Estimated Glomerular Filt Rate 35 ml/min (>60); GFR (African American) 42 ML/MIN (>60)
[2021-05-07 09:46] LABS: Calcium 8.8 mg/dl (8.4-10.2); Carbon Dioxide 26 mmol/L (22.0-30.0); Glucose 173 mg/dl (74-100)
[2021-05-07 10:02] LABS: Sodium 140 mmol/L (136-145)
[2021-05-07 10:03] LABS: Anion Gap 14.9 mEq/L (5-15); Chloride 104 mmol/L (98-107); Potassium 4.9 mmoL/L (3.5-5.1)
--- NOTE | 2021-05-07 11:14 | XR_ITS ---
PROCEDURE: XR CHEST PORTABLE CLINICAL HISTORY: Confirm pacemaker/AID placement COMPARISON: CR XR CHEST PORTABLE from 02/06/2021 CR XR CHEST PORTABLE PICC PLAC from 02/10/2021 FINDINGS: There has been interval insertion of an AICD and RV pacer from left subclavian approach both appear to be in good position. There is no evidence of pneumothorax. Surgical clips are present in the left infraclavicular region. There are low lung volumes. Normal heart size. No lobar consolidation or collapse. There has been a prior median sternotomy with CABG IMPRESSION: Interval AICD placement as described above Dictated by: Tin Sharp MD 05/07/2021 12:50 Tin Sharp MD in OV 05/07/2021 12:50
--- NOTE | 2021-05-07 11:19 | P.PN_ITS ---
[facility] Anesthesia Checklist - Patient Identification Patient Identification: Arm Band - Structural Data Admitted From: Home Planned Operative Procedure/s: AICD placement Consent for Planned Operative Procedure(s) Verified: Yes Verified Documents: Surgical Consent, History and Physical - NPO Status Verified Time NPO: 00:00 - Airway Assessment C-Spine Mobility Assessed: Yes TMJ Mobility Assessed: Yes Dentition: Poor Dentition - Neurological Assessment Level of Consciousness: Awake, Alert - Anesthesia Plan Anesthesia Risk discussed: Yes Anesthesia Plan: Verified ASA Class: IV Anesthesia Type: MAC [facility] History Medical History: Reports:: Atrial Fibrillation, Congestive Heart Failure, Co ronary Artery Disease, Cerebrovascular Accident, Diabetes Mellitus Type 2, Heart Murmur, Hyperlipidemia, Hypertension, Myocardial Infarction Denies:: Cancer, Diabetes Mellitus Type 1, Internal Pacemaker, MRSA *Have you ever received a pneumonia vaccine?: Yes *Have you received a flu vaccine this season?: No Anesthesia experience/problems:: None Other Surgeries: Yes: CABG, Cardiac Catheterization, Hernia Repair, Open Heart Surgery, Other (Pilonidal cyst x 2). No: Pacemaker Amputation: No Fractures: No - *Social History Last grade of school completed: Some college Smoking Status: Former smoker Alcohol Intake: never Substance Use Type: denies use *Occupational Status:: retired, disabled Housing: other Household Members: other *Travel in the last 8 weeks: None Family Hx:: Non-contributory
--- NOTE | 2021-05-07 11:33 | CA_ITS ---
APPROVED REPORT EXAM: Comprehensive 2D, Doppler, and color-flow Echocardiogram Electronics Instructor: Katie Callejas, RT(R) Ht: 5 ft 6 in Wt: 181lbs BSA: 1.92 BP: 131/64 mmHg Indications: Post pacemaker, r/o pericardial effusion limited echo, patient supine on back post procedure Conclusion 1. Limited echocardiogram was obtained to assess pericardial effusion. 2. No significant pericardial effusion noted. Electronically signed by : John Eduardo, 05/08/2021 16:18:10
--- NOTE | 2021-05-07 11:35 | SUR.PHASEII ---
Pt HR noted to be in the 120s, Dr saldivar notified, stated to order a state echo, 10mg of bisoprolol.
--- NOTE | 2021-05-07 13:11 | SUR.PHASEII ---
Pt is alert and oriented x3, denies pain, L chest with folded 4x4 with tegaderm over top. 4x4 is c/d/i, however, immediately above dressing Dr. Servin removed a skin tag and there is an approx 3x3cm open area. small amt of blood noted around the area underneath the tegaderm. Soiled tegaderm removed and cleansed with sterile water, dried and reapplied a new tegaderm over top. pt tolerated well. Pt has been pleasant and cooperative since he arrived to my care at 1212. VSS. Discharge instructions reviewed with pt and his and dtr, including follow up appt with Malathi 05/20/21 @ 2, activity, diet, restrictions, dressing care, s/s infection, and new prescription to pickers material handlers, to d/c carvedilol. when to seek medical attn. Pt and family verbalized understanding to all teaching and instruction. very pleasant at discharge smiling and thanking staff for care. pt left in w/c with family at side.
== END 2021-05-07 13:15 | disposition home or self-care (01) ==
PROVIDERS: PCP Family Medicine; Visit Provider Internal Medicine
PROC: 0JH608Z Insertion of Defibrillator Generator into Chest Subcutaneous Tissue and Fascia, Open Approach (ICD-10-PCS; CPT 33249; principal; 2021-05-07 09:00)
DX: I11.0 Hypertensive heart disease with heart failure (principal); I50.22 Chronic systolic (congestive) heart failure; I48.0 Paroxysmal atrial fibrillation; I25.5 Ischemic cardiomyopathy; I25.10 Atherosclerotic heart disease of native coronary artery without angina pectoris; E11.9 Type 2 diabetes mellitus without complications; Z95.1 Presence of aortocoronary bypass graft; Z20.822 Contact with and (suspected) exposure to COVID-19; Z79.01 Long term (current) use of anticoagulants; Z79.899 Other long term (current) drug therapy
CPT/HCPCS: 33249; 71045; 80048; 85025; 93005; 93308; C1721; C1895; C1898; J2704

== ENCOUNTER → 2021-06-10 14:45 | Outpatient (POV) | payer MEDICARE, SELFPAY | PROVIDERS: Visit Provider Dermatology | DX: Z00.00 Encounter for general adult medical examination without abnormal findings (principal) ==

== ENCOUNTER → 2021-08-13 09:03 | Outpatient (CLI) | payer MEDICARE, SELFPAY ==
[2021-08-13 09:08] LABS: Microscopic, Urine URINE MICROSCOPIC (MICROSCOPIC)
[2021-08-13 09:35] LABS: Basophils # 0.1 K/mm3 (0-0.2); Basophils % 1.1 % (0.1-2.0); Eosinophils # 0.6 K/mm3 (0.0-0.4); Eosinophils % 7.3 % (0.1-12.0); Hematocrit 39.5 % (42.0-52.0); Hemoglobin 12.8 g/dL (14.1-18.0); Lymphocytes # 1.5 K/mm3 (0.7-4.5); Lymphocytes % 19.2 % (10-50); Mean Corpuscular HGB Conc 32.5 g/dL (31.8-35.4); Mean Corpuscular Hemoglobin 32.4 pg (27.0-31.2); Mean Corpuscular Volume 99.7 fl (80-94); Mean Platelet Volume 9.2 fl (7.4-10.4); Monocytes # 0.4 K/mm3 (0.1-1.0); Monocytes % 4.5 % (1.7-9.3); Neutrophils # 5.2 K/mm3 (1.8-7.8); Platelet Count 219 K/mm3 (142-424); Red Blood Count 3.96 M/mm3 (4.60-6.20); Red Cell Distribution Width 12.9 % (11.5-17.5); White Blood Count 7.7 K/mm3 (4.8-10.8)
[2021-08-13 09:47] LABS: Appearance,Urine CLEAR (Clear); Bilirubin,Urine Negative (Negative); Blood, Urine Negative (Negative); Color,Urine YELLOW (Yellow); Glucose,Urine (UA) Negative (Negative); Ketones,Urine Negative (Negative); Leukocyte Esterase,Urine Negative (Negative); Nitrate,Urine Negative (Negative); Protein,Urine TRACE (Negative); Specific Gravity, Urine 1.025 (1.005-1.030); Urobilinogen,Urine 0.2 EU/dl (0.2)
[2021-08-13 09:56] LABS: Creatinine,Urine Random 210 mg/dL (Not Estab.)
[2021-08-13 11:19] LABS: Amorphous Sediment,Urine 1+ /lpf
[2021-08-13 18:34] LABS: Albumin Level 3.7 g/dl (3.5-5.0); Anion Gap 11.2 mEq/L (5-15); Blood Urea Nitrogen 30 mg/dl (9-20); Carbon Dioxide 26 mmol/L (22.0-30.0); Chloride 104 mmol/L (98-107); Estimated Glomerular Filt Rate 35 ml/min (>60); GFR (African American) 42 ML/MIN (>60); Glucose 166 mg/dl (74-100); Phosphorous 3.7 mg/dl (2.5-4.5); Potassium 5.2 mmoL/L (3.5-5.1); Sodium 136 mmol/L (136-145)
[2021-08-13 18:52] LABS: 25-OH Vitamin D, Total 19.7 ng/mL (30-100)
== END ==
PROVIDERS: Visit Provider Internal Medicine Nephrology
DX: N18.30 Chronic kidney disease, stage 3 unspecified (principal)
CPT/HCPCS: 36415; 80069; 81001; 82306; 82570; 84155; 85025

== ENCOUNTER → 2021-09-15 12:37 | Outpatient (POV) | payer MEDICARE, SELFPAY | PROVIDERS: Visit Provider Internal Medicine Nephrology | DX: Z00.00 Encounter for general adult medical examination without abnormal findings (principal) ==

== ENCOUNTER 2022-06-28 11:42 | Emergency (ER) | payer MEDICARE, SELFPAY ==
[2022-06-28] VITALS (10 sets, daily range): BP systolic 96–137; BP diastolic 53–97; PULSE 68–87; RESP 17–20; TEMP 36.8–37.2; O2SAT 95–99; BMI 30.5
--- NOTE | 2022-06-28 12:22 | PC.NURSE ---
is at bedside speaking with pt and pt's
--- NOTE | 2022-06-28 12:43 | HMH.EDGENADL ---
ED Disposition Clinical Impression: Weakness Disposition: Home, Self-Care Condition on Discharge: Fair Additional Instructions: Follow-up with your primary care provider within 48 hours to establish care for the visit to the emergency department. Have repeat labs drawn including CMP, to ensure no worsening of electrolytes or liver function tests. Also talked primary care provider regarding CT findings and scheduling colonoscopy. If you have any other concerning signs or symptoms, return to the emergency department for further evaluation. Referrals: Luis E Conteh MD [Primary Care Provider] - - Critical Care Critical Care Time: No Attestation: On 06/28/22, the high probability of a clinically significant, sudden or life threatening deterioration of the following system(s) required my full and direct attention, intervention and personal management. The time I documented below is in addition to time spent performing reported procedures but includes the following listed in this critical care notation. Medical Decision Making - Fernando Inquiry Pt receiving controlled substance: No Vital Signs: 06/28/22 11:52 06/28/22 12:00 06/28/22 12:30 Temperature 98.2 F Temperature Source Oral Pulse Rate 68 72 Pulse Rate [Left Radial] 87 Respiratory Rate 17 Blood Pressure 110/65 96/53 L Blood Pressure [Right Arm] 113/53 L Blood Pressure Mean 67 Blood Pressure Mean [Right Arm] 73 02 Sat by Pulse Oximetry 97 97 99 Oxygen Delivery Method Room Air 06/28/22 13:00 06/28/22 13:36 Temperature Temperature Source Pulse Rate 79 82 Pulse Rate [Left Radial] Respiratory Rate Blood Pressure 102/57 L 94/46 L Blood Pressure [Right Arm] Blood Pressure Mean 67 Blood Pressure Mean [Right Arm] 02 Sat by Pulse Oximetry 95 98 Oxygen Delivery Method - Lab Data Lab Results 06/28/22 13:35: WBC 4.8, RBC 3.98 L, Hgb 13.0 L, Hct 41.5 L, MCV 104.3 H, MCH 32.7 H, MCHC 31.3 L, RDW 13.0, Plt Count 142, MPV 10.0, Neut % (Auto) 75.9, Lymph % (Auto) 13.3, [place] % (Auto) 8.0, Eos % (Auto) 1.3, Baso % (Auto) 1.5, Neut # (Auto) 3.7, Lymph # (Auto) 0.6 L, [place] # (Auto) 0.4, Eos # (Auto) 0.1, Baso # (Auto) 0.1 06/28/22 13:35: Sodium 135 L, Potassium 5.4 H, Chloride 104, Carbon Dioxide 27, Anion Gap 9.4, BUN 22 H, Creatinine 2.00 H, Estimated Creat Clear 35, Estimated GFR 32 L, Est GFR ( Amer) 39 L, Glucose 141 H, Calcium 8.6, Total Bilirubin 3.3 H, AST 54, ALT 51, Alkaline Phosphatase 244 H, Total Protein 7.2, Albumin 3.6, Globulin 3.6 H, Albumin/Globulin Ratio 1.0 L Result diagrams: 06/28/22 13:35 06/28/22 13:35 Orders (Tests/Meds): ORDERS Category Date Time Status Respiratory Virus Panel, PCR [Upper Respiratory Panel, Lab 06/28/22 14:41 Received PCR] Stat Medical Decision Narrative: This is a 76-year-old male with history of CVA with left-sided weakness, two-vessel CABG and atrial fibrillation currently on Eliquis, pacemaker defibrillator in place is presenting with bilateral lower extremity weakness. On arrival, patient hemodynamically stable, alert, oriented, moving all extremities spontaneously, pupils equal and reactive to light, GCS 15. Physical exam nonconcerning for any acute or emergent surgical process. Differential includes muscular strain versus sprain, fracture, dislocation, malignancy, dehydration, electrolyte abnormality, UTI, cauda equina, conus medullaris, disc herniation, among others. Work-up significant forNonactionable CBC. CMP with mild hyperkalemia, stable kidney function, mildly elevated bilirubin from previous, as well as alkaline phosphatase. CT abdomen pelvis with segmental colitis versus occult neoplasia in ascending colon. No acute findings thoracic, lumbar spine, or chest CTs. given patient's clinical history, work-up, this most likely represents acute on chronic debility versus metabolic disturbance. Conversation was had with patient regarding inpatient admission for f
--- NOTE | 2022-06-28 13:02 | XR_ITS ---
PROCEDURE INFORMATION: Exam: XR Chest Exam date and time: 06/28/2022 2:03 PM Age: 76 years old Clinical indication: Cough; Additional info: New cough, weakness TECHNIQUE: Imaging protocol: Radiologic exam of the chest. Views: 1 view. COMPARISON: CR XR CHEST PORTABLE 05/07/2021 11:49 AM FINDINGS: Stable placement to the dual chamber cardioverter-defibrillator with lead tips in the right atrium and right ventricle. Stable [id number] cardiomegaly. Central airways are patent. Calcified aortic knob. Low lung volumes causes crowding of the bronchovascular structures. No acute interstitial or airspace disease. No pleural effusion or pneumothorax. No acute skeletal abnormality or aggressive osseous lesion. IMPRESSION: Stable examination without acute chest pathology.
--- NOTE | 2022-06-28 13:03 | CT_ITS ---
PROCEDURE INFORMATION: Exam: CT Lumbar Spine Without Contrast Exam date and time: 06/28/2022 2:03 PM Age: 76 years old Clinical indication: Low back pain; Additional info: Back pain, weakness TECHNIQUE: Imaging protocol: Computed tomography of the lumbar spine without contrast. Radiation optimization: All CT scans at this facility use at least one of these dose optimization techniques: automated exposure control; mA and/or kV adjustment per patient size (includes targeted exams where dose is matched to clinical indication); or iterative reconstruction. COMPARISON: CT THORACIC SPINE WO CON 06/28/2022 2:00 PM FINDINGS: Preserved lumbar alignment and lordosis. Preserved intervertebral disc spaces and vertebral body heights. Spinal canal is patent. No significant neural foraminal stenosis. Minimal facet joint hypertrophy. Tiny multilevel anterior osteophytes. No acute fracture, dislocation, or aggressive skeletal lesion. Mild degenerative changes of the sacroiliac joints. No acute findings in the visualized abdomen. Visualized lung bases are clear. No significant prevertebral or paravertebral soft tissue swelling. 26 mm focal fusiform ectasia of the infrarenal abdominal aorta. Diffuse moderate calcific atherosclerotic disease of the aorta. IMPRESSION: No acute skeletal pathology or discrete findings to explain the patient's symptoms. Specifically, no significant central canal or neural foraminal stenosis.
--- NOTE | 2022-06-28 13:03 | CT_ITS ---
PROCEDURE INFORMATION: Exam: CT Abdomen And Pelvis Without Contrast Exam date and time: 06/28/2022 2:05 PM Age: 76 years old Clinical indication: Other: Weakness; Additional info: Back pain, weakness TECHNIQUE: Imaging protocol: Computed tomography of the abdomen and pelvis without contrast. Radiation optimization: All CT scans at this facility use at least one of these dose optimization techniques: automated exposure control; mA and/or kV adjustment per patient size (includes targeted exams where dose is matched to clinical indication); or iterative reconstruction. COMPARISON: CT LUMBAR SPINE WO CON 06/28/2022 2:03 PM FINDINGS: Nodular liver contour, concerning for early hepatocellular disease. Correlation with pertinent labs is recommended. Normal gallbladder, bile ducts, pancreas, spleen, and adrenal glands. Bilateral extrarenal pelvises. Mild pelviectasis in the right kidney. No significant hydronephrosis or hydroureter. 5 mm stone in the left kidney, nonobstructive. Kidneys otherwise unremarkable. Ureters are normal. Contracted urinary bladder difficult to evaluate. Reproductive organs are unremarkable as visualized. . Colonic diverticulosis. 37 mm long segment of ascending colon which is under distended, however demonstrates wall thickening (image 27 series 4). No significant pericolonic inflammatory changes. Second 32 mm long segment of circumferential wall thickening at the proximal ascending colon (image 24 series 4). No significant pericolonic inflammatory changes. No other segmental bowel wall thickening. Normal appendix. Moderate to severe constipation. . Small hiatal hernia. No free fluid, fluid collections, or pneumoperitoneum. No abdominopelvic adenopathy. Severe atherosclerotic disease without acute vascular pathology. 25 mm ectasia of the infrarenal abdominal aorta. No acute body wall soft tissue findings. No acute findings in the lung bases. No acute skeletal abnormality or aggressive osseous lesion. Moderate multilevel degenerative changes of the spine are present. IMPRESSION: 1. At least 2 individual segments of ascending colon with findings concerning for: 1. Artifact from under distension. 2. Very mild focal infectious/inflammatory segmental colitis. 3. Occult colonic neoplasia. Consider follow-up or correlation with colonoscopy if clinically warranted. 2. No other acute abdominopelvic pathology. 3. Incidental/chronic findings as above. Note is made of possible early hepatocellular disease. Correlation with pertinent labs recommended.
--- NOTE | 2022-06-28 13:03 | CT_ITS ---
PROCEDURE INFORMATION: Exam: CT Thoracic Spine Without Contrast Exam date and time: 06/28/2022 2:00 PM Age: 76 years old Clinical indication: Pain in thoracic spine; Without myelpathy or radiculopathy; Additional info: Back pain, weakness TECHNIQUE: Imaging protocol: Computed tomography of the thoracic spine without contrast. Radiation optimization: All CT scans at this facility use at least one of these dose optimization techniques: automated exposure control; mA and/or kV adjustment per patient size (includes targeted exams where dose is matched to clinical indication); or iterative reconstruction. COMPARISON: CR XR CHEST PORTABLE 05/07/2021 11:49 AM FINDINGS: Preserved thoracic spine alignment and kyphosis. Mild multilevel decreased intervertebral disc space. Woxa-[id number] multilevel anterior and bridging osteophytes. Preserved vertebral body heights spinal canal and neural foramina appear grossly patent. No acute fracture, dislocation, or aggressive skeletal lesion. No significant prevertebral or paravertebral soft tissue swelling. No acute findings in the visualized chest or upper abdomen. IMPRESSION: Mild multilevel degenerative changes without acute skeletal pathology.
--- NOTE | 2022-06-28 13:05 | CT_ITS ---
PROCEDURE INFORMATION: Exam: CT Chest Without Contrast; Diagnostic Exam date and time: 06/28/2022 2:05 PM Age: 76 years old Clinical indication: Other: Weakness and cough; Additional info: Weakness, cough TECHNIQUE: Imaging protocol: Diagnostic computed tomography of the chest without contrast. Radiation optimization: All CT scans at this facility use at least one of these dose optimization techniques: automated exposure control; mA and/or kV adjustment per patient size (includes targeted exams where dose is matched to clinical indication); or iterative reconstruction. COMPARISON: CR XR CHEST PORTABLE 06/28/2022 2:03 PM FINDINGS: Heterogeneous thyroid which may be further evaluated with nonemergent thyroid ultrasound. 38 mm ectasia of the mid ascending thoracic aorta. Moderate diffuse calcific atherosclerotic disease of the aorta. No aortic aneurysms. Pulmonary arteries normal in course and caliber. Sfkn-ys-dcyzpmsf enlargement of the left ventricle. Severe trivessel calcific coronary artery disease. No pericardial thickening or effusion. Stable placement to the dual chamber cardioverter-defibrillator with lead tips in the right atrium and right ventricle. Small hiatal hernia. Mediastinum is otherwise unremarkable. 9 mm prominent lymph node in the AP window, most probably of chronic etiology. No other concerning thoracic adenopathy by CT size criteria. . No pleural effusion, pleural thickening, or pneumothorax. Chronic parenchymal scarring and early fibrotic changes in the bilateral lung apices with associated mild honeycombing. Dependent atelectasis. Mild reticular scarring in the bilateral lung bases. No acute interstitial or airspace disease. Reticular scarring in the periphery of the lungs. Mild diffuse cylindrical bronchiectasis. Airways are otherwise patent. . No acute body wall soft tissue findings. No acute skeletal abnormality or aggressive osseous lesion. Midline sternotomy. Moderate multilevel degenerative changes of the spine. Please review abdomen and pelvic CT performed concomitantly. IMPRESSION: No acute thoracic pathology. Chronic and incidental findings as detailed above.
[2022-06-28 13:49] LABS: Alanine Aminotransferase 51 U/L (12-78); Albumin Level 3.6 g/dl (3.5-5.0); Alkaline Phosphatase 244 U/L (38-126); Anion Gap 9.4 mEq/L (5-15); Aspartate Amino Transferase 54 U/L (17-59); Bilirubin,Total 3.3 mg/dl (0.2-1.3); Blood Urea Nitrogen 22 mg/dl (9-20); Calcium 8.6 mg/dl (8.4-10.2); Carbon Dioxide 27 mmol/L (22.0-30.0); Chloride 104 mmol/L (98-107); Creatinine Clearance Estimated 35 mL/min (50-200); Estimated Glomerular Filt Rate 32 ml/min (>60); GFR (African American) 39 ML/MIN (>60); Globulin 3.6 g/dL (1.3-3.2); Glucose 141 mg/dl (74-100); Potassium 5.4 mmoL/L (3.5-5.1); Sodium 135 mmol/L (136-145); Total Protein,Serum 7.2 g/dl (6.3-8.2)
--- NOTE | 2022-06-28 13:57 | HMH.ITSTN ---
GFR 32// spoke to Dr rene scans done without contrast due to low GFR-- modified orders
--- NOTE | 2022-06-28 13:59 | PC.NURSE ---
pt to CT with radiology assistant by callie
--- NOTE | 2022-06-28 13:59 | PC.NURSE ---
Pt transported to radiology via stretcher.
[2022-06-28 14:03] LABS: Basophils # 0.1 K/mm3 (0-0.2); Basophils % 1.5 % (0.1-2.0); Eosinophils # 0.1 K/mm3 (0.0-0.4); Eosinophils % 1.3 % (0.1-12.0); Hematocrit 41.5 % (42.0-52.0); Lymphocytes # 0.6 K/mm3 (0.7-4.5); Lymphocytes % 13.3 % (10-50); Mean Corpuscular HGB Conc 31.3 g/dL (31.8-35.4); Mean Corpuscular Hemoglobin 32.7 pg (27.0-31.2); Mean Corpuscular Volume 104.3 fl (80-94); Monocytes # 0.4 K/mm3 (0.1-1.0); Neutrophils # 3.7 K/mm3 (1.8-7.8); Neutrophils % 75.9 % (37.0-80.0); Platelet Count 142 K/mm3 (142-424); Red Blood Count 3.98 M/mm3 (4.60-6.20); White Blood Count 4.8 K/mm3 (4.8-10.8)
--- NOTE | 2022-06-28 14:17 | PC.NURSE ---
pt returned from CT via stretcher with Audigence at this time
--- NOTE | 2022-06-28 14:20 | ECG_ITS ---
APPROVED REPORT Exam: Resting ECG HR:85 bpm ECG Measurements Heart Rate 85 AXES WV 195 P 63 QRSd 122 QRS -56 QT 353 T 116 QTc 395 Conclusion SINUS RHYTHM LAD with old anteroseptal changes ABNORMAL ECG UNCONFIRMED REPORT Electronically signed by : Colten Burk MD 06/28/2022 19:02:30
[2022-06-28 14:47] LABS: Adenovirus,PCR Not Detected (NotDetected); Bordetella Pertussis Not Detected (NotDetected); Chlamydophila Pneumoniae, PCR Not Detected (NotDetected); Coronavirus 229E Not Detected (NotDetected); Coronavirus NL63 Not Detected (NotDetected); Coronavirus OC43 Not Detected (NotDetected); Coronovirus HKU1,PCR Not Detected (NotDetected); Human Metapneumovirus Not Detected (NotDetected); Influenza A, PCR Not Detected (NotDetected); Influenza AH1, 2009 Not Detected (NotDetected); Influenza AH1, PCR Not Detected (NotDetected); Influenza AH3,PCR Not Detected (NotDetected); Influenza B, PCR Not Detected (NotDetected); Mycoplasma Pneumoniae, PCR Not Detected (NotDetected); Parainfluenza 1, PCR Not Detected (NotDetected); Parainfluenza 2, PCR Not Detected (NotDetected); Parainfluenza 3, PCR Not Detected (NotDetected); Parainfluenza 4, PCR Not Detected (NotDetected); Respiratory Syncytial Virus Not Detected (NotDetected); Rhinovirus/Enterovirus Not Detected (NotDetected)
--- NOTE | 2022-06-28 15:13 | PC.NURSE ---
ER MD at speaking with patient regarding update on POC/results
--- NOTE | 2022-06-28 15:13 | PC.NURSE ---
LADY WEST at bedside.
--- NOTE | 2022-06-28 15:40 | PC.NURSE ---
Called to let her know patient is ready for discharge.
== END 2022-06-28 16:35 | disposition home or self-care (01) ==
PROVIDERS: Emergency Provider Emergency Medicine; PCP Family Medicine
DX: R53.1 Weakness (principal); E87.5 Hyperkalemia; M54.9 Dorsalgia, unspecified; R05.9 Cough, unspecified; I69.359 Hemiplegia and hemiparesis following cerebral infarction affecting unspecified side
CPT/HCPCS: 71045; 71250; 72128; 72131; 74176; 80053; 85025; 87486; 87581; 87632; 87798; 93005; 99285

== ENCOUNTER 2022-07-07 16:10 | Inpatient (IN) | payer MEDICARE, SELFPAY ==
[2022-07-07] VITALS (12 sets, daily range): BP systolic 91–112; BP diastolic 44–61; PULSE 91–112; RESP 18–25; TEMP 37.3; O2SAT 77–96; BMI 27.4; BMI 29.4
--- NOTE | 2022-07-07 16:16 | ECG_ITS ---
APPROVED REPORT Exam: Resting ECG HR:100 bpm ECG Measurements Heart Rate 100 AXES WY 173 P 48 QRSd 122 QRS -59 QT 341 T 118 QTc 398 Conclusion SINUS TACHYCARDIA POSSIBLE LEFT ATRIAL ENLARGEMENT [-0.1mV P-WAVE IN V1/V2] INFERIOR MYOCARDIAL INFARCTION , OF INDETERMINATE AGE [40+ ms Q WAVE AND/OR ST/T ABNORMALITY IN II/aVF] ANTEROLATERAL MYOCARDIAL INFARCTION , OF INDETERMINATE AGE [40+ ms Q WAVE IN I/aVL/V3-V6] ABNORMAL ECG UNCONFIRMED REPORT Electronically signed by : Colten Burk MD 07/09/2022 11:32:47
--- NOTE | 2022-07-07 16:22 | HMH.EDGENADL ---
Discharge Plan Disposition Patient Disposition: Admitted as Observation Condition: Fair Clinical Impressions Clinical Impression: COVID-19 virus infection, Generalized weakness, Dehydration, Acute respiratory failure with hypoxia Discharge ED Provider: Dylan Mooney General Adult HPI General Chief complaint: Shortness of Breath/Dyspnea Stated complaint: Weakness Time Seen by Provider: 07/07/22 16:22 History of Present Illness HPI narrative: Brought in by ambulance. Chief complaint is weakness. Says that for the past couple days he has been feeling generally weak. Could not get up and walk today. Normally walks with a walker. Has a prior history of a stroke with left hemiparesis. Initially denied any other symptoms at all to me. Noted to be coughing in the emergency department. When specifically questioned about this states that he has had a cough for about a week. Denies fever, vomiting, diarrhea, any pain including chest pain and abdominal pain, or urinary symptoms. Related Data Home Medications Medication Instructions Recorded Confirmed acarbose 25 mg tablet 25 mg PO AC Diabetes 02/06/21 06/24/22 aspirin 81 mg chewable tablet 81 mg PO DAILY Heart disease 02/06/21 06/24/22 escitalopram oxalate 5 mg tablet 5 mg PO DAILY Depression 03/11/21 06/24/22 (Lexapro) metformin 500 mg tablet 1,000 mg PO BID Diabetes 01/12/22 06/24/22 bisoprolol fumarate 10 mg tablet 10 mg PO BID Heart disease 06/24/22 06/24/22 ergocalciferol (vitamin D2) 1,250 1 tab PO WEEKLY Supplement 06/24/22 06/24/22 mcg (50,000 unit) capsule sacubitril 24 mg-valsartan 26 mg 24 mg PO BID . 06/24/22 06/24/22 tablet sacubitril 49 mg-valsartan 51 mg 1 tab PO BID . 06/24/22 06/24/22 tablet Previous Rx's Medication Instructions Recorded atorvastatin 40 mg tablet 20 mg PO HS Cholesterol #30 tabs 08/13/21 bumetanide 1 mg tablet 1 mg PO DAILY PRN Edema #60 tabs 08/13/21 apixaban 2.5 mg tablet 2.5 mg PO BID Blood thinner #60 04/07/22 tabs Allergies Allergy/AdvReac Type Severity Reaction Status Date / Time RED SOAP Allergy Rash Uncoded 04/07/22 13:14 PFSH PFSH Medical History (Updated 07/07/22 @ 18:46 by Dylan Mooney MD) LV dysfunction Surgical History (Updated 06/10/21 @ 13:46 by Katrhine Deasi RN) AICD (automatic cardioverter/defibrillator) present Social History Smoking Status: Never smoker second hand exposure: Yes alcohol intake: never substance use type: denies use current occupational status: retired household members: spouse and family housing: house caffeine: Yes ROS Obtained: Yes All systems reviewed & no additional complaints except as documented Constitutional Constitutional: Denies fever(s) and Reports weakness ENT Ears, Nose, Mouth, and Throat: Denies nasal discharge and Denies sore throat Cardiovascular Cardiovascular: Denies chest pain Respiratory Respiratory: Denies shortness of breath and Reports cough Gastrointestinal Gastrointestingal: Denies abdominal pain, diarrhea or vomiting Genitourinary Male Genitourinary: Denies difficulty urinating Neurologic Neurologic: Reports weakness Physical Exam General General appearance: alert and in no apparent distress Comment: Occasional hacky cough Head Head exam: atraumatic and normocephalic Eye Eye exam: Present normal appearance and EOMI ENT ENT exam: Present mucous membranes moist Neck Neck exam: Present normal inspection and trachea midline Chest Chest inspection: Present normal inspection and symmetric chest wall rise Respiratory Respiratory exam: Present normal lung sounds bilaterally; Absent respiratory distress Cardiovascular Cardiovascular exam: Present regular rate, normal rhythm and normal heart sounds Abdominal Exam Abdominal exam: Present soft and normal bowel sounds; Absent distention, tenderness, guarding, rebound or rigidity Extremities Exam Extremities exam: Present edema (Trace pitting edema of ankle
--- NOTE | 2022-07-07 16:24 | PC.NURSE ---
Respiratory aware of ABG order
[2022-07-07 16:33] LABS: ABG Base Excess -7.4 mmol/L (-2.4-2.3); ABG HCO3 17.5 mmhg (22.0-26.0); ABG Oxygen Saturation 90 % (90-100); ABG PO2 56.7 mmhg (80-100); ABG TCO2 18.4 mmhg (23-27); Allen's Test Acceptable; Oxygen 4LPM %; Source Left Radial
--- NOTE | 2022-07-07 16:33 | XR_ITS ---
PROCEDURE INFORMATION: Exam: XR Chest Exam date and time: 07/07/2022 4:47 PM Age: 76 years old Clinical indication: Shortness of breath; Additional info: SOA TECHNIQUE: Imaging protocol: Radiologic exam of the chest. Views: 1 view. COMPARISON: CT CHEST WO CON 06/28/2022 2:05 PM FINDINGS: Tubes, catheters and devices: AICD projects in satisfactory location. There are sternal wires consistent with previous sternotomy incision. Lungs: Atelectatic changes noted within the right upper lobe and left lung base. Pleural spaces: There is no evidence of pneumothorax. There are no pleural effusions present. Heart/Mediastinum: Heart demonstrates mild diffuse enlargement. Bones/joints: The thoracic spine demonstrates mild degenerative changes at multiple levels. IMPRESSION: 1. Mild cardiomegaly. 2. Atelectatic changes noted within the right upper lobe and left lung base.
--- NOTE | 2022-07-07 16:35 | PC.NURSE ---
LADY WEST at for patient eval
[2022-07-07 16:40] LABS: Influenza A, PCR Not Detected (NotDetected); Influenza B, PCR Not Detected (NotDetected)
[2022-07-07 16:40] LABS: Microscopic, Urine URINE MICROSCOPIC (MICROSCOPIC)
[2022-07-07 16:46] LABS: Basophils % 0.7 % (0.1-2.0); Eosinophils % 0.2 % (0.1-12.0); Hematocrit 41.4 % (42.0-52.0); Hemoglobin 13.2 g/dL (14.1-18.0); Lymphocytes # 0.6 K/mm3 (0.7-4.5); Lymphocytes % 12.7 % (10-50); Mean Corpuscular HGB Conc 31.8 g/dL (31.8-35.4); Mean Corpuscular Hemoglobin 31.4 pg (27.0-31.2); Mean Corpuscular Volume 98.7 fl (80-94); Mean Platelet Volume 9.3 fl (7.4-10.4); Monocytes # 0.2 K/mm3 (0.1-1.0); Monocytes % 4.8 % (1.7-9.3); Neutrophils # 3.6 K/mm3 (1.8-7.8); Neutrophils % 81.7 % (37.0-80.0); Platelet Count 201 K/mm3 (142-424); Red Cell Distribution Width 13.2 % (11.5-17.5); White Blood Count 4.4 K/mm3 (4.8-10.8)
[2022-07-07 16:58] LABS: Alanine Aminotransferase 31 U/L (12-78); Albumin Level 3.4 g/dl (3.5-5.0); Albumin/Globulin Ratio 0.9 (1.1-1.8); Alkaline Phosphatase 158 U/L (38-126); Anion Gap 15.2 mEq/L (5-15); Aspartate Amino Transferase 66 U/L (17-59); Blood Urea Nitrogen 38 mg/dl (9-20); Calcium 8.1 mg/dl (8.4-10.2); Carbon Dioxide 22 mmol/L (22.0-30.0); Chloride 101 mmol/L (98-107); Creatinine Clearance Estimated 28 mL/min (50-200); Estimated Glomerular Filt Rate 26 ml/min (>60); GFR (African American) 32 ML/MIN (>60); Globulin 3.6 g/dL (1.3-3.2); Glucose 95 mg/dl (74-100); Lactic Acid 1.7 mmol/L (0.7-2.1); Potassium 5.2 mmoL/L (3.5-5.1); Sodium 133 mmol/L (136-145)
[2022-07-07 17:02] LABS: Appearance,Urine CLEAR (Clear); Blood, Urine 2+ (Negative); Color,Urine YELLOW (Yellow); Glucose,Urine (UA) Negative (Negative); Ketones,Urine 1+ (Negative); Leukocyte Esterase,Urine Negative (Negative); Nitrate,Urine Negative (Negative); PH,Urine 5.5 (5.0-8.5); Protein,Urine 1+ (Negative); Specific Gravity, Urine 1.025 (1.005-1.030)
--- NOTE | 2022-07-07 17:02 | PC.NURSE ---
Spouse is at BS
[2022-07-07 17:03] LABS: Bilirubin,Urine 1+ (Negative)
[2022-07-07 17:10] LABS: NT Pro Brain Natriuretic Pep. 3860 pg/mL (0-450); Troponin I 0.04 ng/ml (0.00-0.034)
--- NOTE | 2022-07-07 17:18 | PC.NURSE ---
ER MD at speaking with patient and spouse regarding update on results/POC
[2022-07-07 17:22] LABS: Coronavirus 19, PCR Detected (NotDetected)
--- NOTE | 2022-07-07 17:29 | PC.NURSE ---
DR. TIWARI PAGED AT THIS TIME
--- NOTE | 2022-07-07 17:35 | PC.NURSE ---
isolation precautions placed outside of ED room 4's door
--- NOTE | 2022-07-07 17:39 | PC.NURSE ---
BALTAZAR WEST SPEAKING WITH DR. TIWARI
--- NOTE | 2022-07-07 17:42 | PC.NURSE ---
Called HOU[facility] and spoke with BHUMIKA Valenzuela regarding patient admission.
[2022-07-07 18:00] LABS: Bacteria,Urine 1+ /lpf
--- NOTE | 2022-07-07 18:20 | PC.NURSE ---
February, RN aware of patients room assignment
--- NOTE | 2022-07-07 18:33 | PC.NURSE ---
report called to Donita BAI
--- NOTE | 2022-07-07 18:39 | PC.NURSE ---
pt is unaware of what meds he takes to update his med list. Contacted daughter who is calling back with what meds he is taking
--- NOTE | 2022-07-07 18:41 | PC.NURSE ---
pt taken to 2nd floor with Floor techs x 2 via stretcher
--- NOTE | 2022-07-07 18:47 | PC.NURSE ---
pt arrived to the floor at this time
[2022-07-07 20:48] LABS: POC Glucose,Bedside 88 (70-110)
[2022-07-08] VITALS (22 sets, daily range): BP systolic 104–131; BP diastolic 48–72; PULSE 64–133; RESP 18–32; TEMP 36.4–39.7; O2SAT 88–97; BMI 29.0
--- NOTE | 2022-07-08 01:24 | PC.NURSE ---
pt placed on high flow nasal cannula at 15L per respiratory therapy after calling regarding pt unable to keep sats above 90% on 02 at 5L pnc, pt in no acute distress at this time, pt with no complaints of pain or sob.
--- NOTE | 2022-07-08 01:50 | PC.NURSE ---
0150 dr helm called regarding pt unable to keep sats above 90% after switching to high flow nasal cannula, lung sounds with rhonchi and crackles noted, pt with brnp 3860 upon admission, iv fluids infusing at 75/hr. note new orders recieved to give iv lasix 40mg x1 and place on vapotherm per respiratory therapy to keep sats above 90, repeated and verified.
--- NOTE | 2022-07-08 02:07 | ECG_ITS ---
APPROVED REPORT Exam: Resting ECG HR:129 bpm ECG Measurements Heart Rate 129 AXES NE 141 P -85 QRSd 118 QRS -62 QT 302 T 74 QTc 378 Conclusion SINUS TACHYCARDIA POSSIBLE ANTERIOR MYOCARDIAL INFARCTION , OF INDETERMINATE AGE [30 ms Q WAVE IN V3/V4, OR R < 0.2 mV IN V4] INFERIOR MYOCARDIAL INFARCTION , OF INDETERMINATE AGE [40+ ms Q WAVE AND/OR ST/T ABNORMALITY IN II/aVF] ABNORMAL ECG UNCONFIRMED REPORT Electronically signed by : Colten Burk MD 07/09/2022 11:32:29
--- NOTE | 2022-07-08 02:11 | ECG_ITS ---
APPROVED REPORT Exam: Resting ECG HR:131 bpm ECG Measurements Heart Rate 131 AXES OR 140 P -47 QRSd 115 QRS -54 QT 296 T 65 QTc 373 Conclusion SINUS TACHYCARDIA POSSIBLE ANTERIOR MYOCARDIAL INFARCTION , OF INDETERMINATE AGE [30 ms Q WAVE IN V3/V4, OR R < 0.2 mV IN V4] INFERIOR MYOCARDIAL INFARCTION , OF INDETERMINATE AGE [40+ ms Q WAVE AND/OR ST/T ABNORMALITY IN II/aVF] ABNORMAL ECG UNCONFIRMED REPORT Electronically signed by : Colten Burk MD 07/09/2022 11:32:36
--- NOTE | 2022-07-08 02:30 | PC.NURSE ---
0200 respiratory placing pt on 02 vapotherm at this time and was noted that pt hr 130's; pt in no acute distress, VSS, pt denies pain, RR 32; ekg was obtained at this time, ekg was taken to er for review by dr. condon and read as no stemi, ?flutter, p waves seen ; dr helm paged at this time to inform of pt with elevated HR.
--- NOTE | 2022-07-08 02:34 | PC.NURSE ---
0234 dr helm called back and notified of pt HR elevated and sustaining in 130's; no complaints of pain, pt with a history of a-fib, pt on bisoprolol at home, b/p 116/64, RR 32; ekg was obtained and read by dr condon and results given to dr helm as written on ekg, note new order for iv metoprolol 5mg x1 dose, repeated and verified.
--- NOTE | 2022-07-08 04:37 | PC.NURSE ---
0304 as metoprolol was given, pt was noted to be very warm to touch and temp checked at this time, pt had been low grade 99.5 earlier, temp was noted to be 103.5 orally, 103.5 axillary, metoprolol 2.5mg iv only given at this time, tylenol po was given, dr helm called regarding temp 103.5, and also informed that only 2.5mg given of metoprolol after noting elevated temperature. note new orders for stat labs and lactate to be drawn at this time. no other orders given.
[2022-07-08 04:44] LABS: Blood Urea Nitrogen 38 mg/dl (9-20); Calcium 7.8 mg/dl (8.4-10.2); Carbon Dioxide 17 mmol/L (22.0-30.0); Chloride 104 mmol/L (98-107); Creatinine Clearance Estimated 29 mL/min (50-200); Estimated Glomerular Filt Rate 28 ml/min (>60); GFR (African American) 33 ML/MIN (>60); Glucose 105 mg/dl (74-100); Lactic Acid 1.2 mmol/L (0.7-2.1); Sodium 132 mmol/L (136-145)
[2022-07-08 04:51] LABS: Basophils % 0.3 % (0.1-2.0); Hematocrit 40.6 % (42.0-52.0); Hemoglobin 12.7 g/dL (14.1-18.0); Lymphocytes # 0.4 K/mm3 (0.7-4.5); Lymphocytes % 4.7 % (10-50); Mean Corpuscular HGB Conc 31.4 g/dL (31.8-35.4); Mean Corpuscular Hemoglobin 31.6 pg (27.0-31.2); Mean Corpuscular Volume 100.7 fl (80-94); Mean Platelet Volume 9.6 fl (7.4-10.4); Monocytes # 0.2 K/mm3 (0.1-1.0); Monocytes % 2.3 % (1.7-9.3); Neutrophils # 7.4 K/mm3 (1.8-7.8); Neutrophils % 92.7 % (37.0-80.0); Platelet Count 191 K/mm3 (142-424); Red Blood Count 4.03 M/mm3 (4.60-6.20); Red Cell Distribution Width 13.4 % (11.5-17.5)
[2022-07-08 04:53] LABS: MANUAL DIFFERENTIAL MANUAL DIFFERENTIAL (MANUAL DIFF)
--- NOTE | 2022-07-08 05:12 | PC.NURSE ---
Pt has remained axox4 throughout the shift, pt has been sleeping on and off. Pt has went from 5L NC -> high flow NC -> vapotherm 25L/100%. Pt has had elevated temperature, treated per jan prn, pt temp back to 98.6. Pt is sinus tach/NSR on tele. O2 sat >90% since being on vapotherm. Pt has olivas in place and draining. Pt lung sound bilaterally rhonchi/wheezing. Pt has had no complaints through shift. Pt is ACHS FS, followed protocol. Call light in reach and working.
[2022-07-08 05:42] LABS: POC Glucose,Bedside 104 (70-110)
[2022-07-08 05:43] LABS: Lymphocytes % 4 % (10-50); Macrocytosis 1+; Neutrophils % 96 % (42-76); Platelet Estimate Normal; Total Cells Counted 100
--- NOTE | 2022-07-08 05:57 | PC.NURSE ---
pt remains stable at this time, no other issues or concerns noted, pt afebrile after tylenol, vapotherm at 25/100 with o2 sats 95-96%; pt with 850 output after iv lasix given, hr down in 90's after iv metoprolol. pt is alert and oriented x4; b/p remain stable, no other issues or concerns at this time.
--- NOTE | 2022-07-08 07:29 | P.CONPHA_ITS ---
[facility] Pharmacy VTE Monitoring Patient Demographics Admission date: 07/07/22 Report Date: 07/08/22 Patient Allergies RED SOAP Allergy (Uncoded 04/07/22 13:14) Rash Height: 1.63 m Weight: 77.706 kg Current Active Problems (Updated 07/07/22 @ 18:46 by Dylan Mooney MD) COVID-19 virus infection (Acute) Generalized weakness (Acute) Dehydration (Acute) Acute respiratory failure with hypoxia (Acute) VTE Risk Labs: VTE Related Lab Results Hgb 12.7 g/dL (14.1-18.0) L 07/08/22 04:27 Hct 40.6 % (42.0-52.0) L 07/08/22 04:27 Plt Count 191 K/mm3 (142-424) 07/08/22 04:27 BUN 38 mg/dl (9-20) H 07/08/22 04:27 Creatinine 2.30 mg/dl (0.66-1.25) H 07/08/22 04:27 Estimated Creat Clear 29 mL/min (50-200) 07/08/22 04:27 VTE Score: 2 Clinical Trial Participant: No Prophylaxis VTE Prophylaxis Ordered?: Yes Types of VTE Prophylaxis: TEDS Knee High
--- NOTE | 2022-07-08 07:38 | HMH.PHAINT1 ---
Pharmacy Intervention Comments: HOME MEDICATION LIST VERIFIED USING LIST FROM [facility] AND PT INTERVIEW
--- NOTE | 2022-07-08 09:32 | EXP.HP ---
History of Present Illness *Admission Date: 07/07/22 *Reason for visit:: Weakness and fever *History of present illness: Mr. Machado is a 76-year-old male patient with a history of coronary artery disease, ischemic cardiomyopathy, type 2 diabetes mellitus, depression, prostatitis, pneumonia with sepsis and chronic kidney disease was brought in by ambulance to the emergency room complaining of weakness. He stated that he had been sick for the last couple of days. On day of admission he was unable to get up and walk. In the emergency room temperature was found to be 99.2. He was given a liter of IV fluids. He had a CT of the chest which showed mild cardiomegaly and atelectatic changes in the right upper lobe and left lung base. noted that he had not been eating well but was drinking fluids well. Patient was noted to be coughing in the emergency room. The patient did state that he been coughing for about a week. At this time he denied fever vomiting, diarrhea and chest and abdominal pain. He was given a liter of IV fluids. O2 sats were noted to be 76% on room air and he was placed on 5 L per nasal cannula in the ER. AM after admission with exam patient denied pain and shortness of breath. He basically said no to all questions. He states he ate a little bit of breakfast. [facility] Medical History (Updated 07/08/22 @ 12:48 by Bridgette Montenegro APRN) Chronic systolic heart failure Diabetes mellitus History of stroke Ischemic cardiomyopathy LV dysfunction Surgical History (Updated 07/08/22 @ 12:43 by Bridgette Montenegro APRN) AICD (automatic cardioverter/defibrillator) present Hx of CABG Family History (Updated 07/07/22 @ 19:02 by Tiffanie Doan RN) Family history of cancer Social History (Updated 07/07/22 @ 19:05 by Tiffanie Doan RN) Smoking Status: Former smoker pack-years: 20 second hand exposure: Yes alcohol intake: never substance use type: denies use current occupational status: retired Travel in the last 8 weeks: None household members: spouse and family housing: house caffeine: Yes Review of Systems Constitutional Constitutional: Reports fever(s), Denies headache(s), Reports poor appetite and Reports weakness Eyes Eyes: Denies change in vision ENT Ears, Nose, Mouth, and Throat: Denies headache(s) and Denies sore throat *Cardiovascular Cardiovascular: Denies chest pain and Denies dyspnea *Respiratory Respiratory: Denies cough and Denies dyspnea *Gastrointestinal Gastrointestinal: Denies change in bowel habits, Denies change in stool character, Denies nausea and Denies vomiting *Genitourinary Genitourinary: Denies difficulty urinating *Musculoskeletal Musculoskeletal: Reports muscle weakness *Neurologic Neurologic: Denies headache(s) and Reports weakness Meds Home Medications and Allergies Home Medications Medication Instructions Recorded Confirmed Type acarbose 25 mg tablet 25 mg PO AC Diabetes 02/06/21 07/07/22 History aspirin 81 mg chewable tablet 81 mg PO DAILY Heart disease 02/06/21 07/07/22 History bumetanide 1 mg tablet 1 mg PO DAILY PRN Edema #60 tabs 08/13/21 07/07/22 Rx metformin 500 mg tablet 1,000 mg PO BID Diabetes 01/12/22 07/07/22 History apixaban 2.5 mg tablet 2.5 mg PO BID Blood thinner #60 04/07/22 07/07/22 Rx tabs bisoprolol fumarate 10 mg tablet 10 mg PO BID Heart disease 06/24/22 07/08/22 History ergocalciferol (vitamin D2) 1,250 50,000 unit PO WEEKLY Supplement 06/24/22 07/08/22 History mcg (50,000 unit) capsule sacubitril 24 mg-valsartan 26 mg 1 tab PO BID Heart failure 06/24/22 07/08/22 History tablet atorvastatin 20 mg tablet 20 mg PO HS Cholesterol 07/08/22 07/08/22 History escitalopram oxalate 5 mg tablet 5 mg PO DAILY Depression 07/08/22 07/08/22 History (Lexapro) tamsulosin 0.4 mg capsule (Flomax) 0.4 mg PO HS prostate 07/08/22 07/08/22 History New Prescriptions to Start Prescriptions: Allergies Allergy/AdvReac Type Severity
--- NOTE | 2022-07-08 10:56 | EXP.CARD.CON ---
History of Present Illness History of Present Illness Consult date: 07/08/22 Requesting physician: Luis E Conteh Chief complaint: weakness Additional Medical History:: Past medical Hx: -Chronic systolic heart failure- April 2021 EF 20-25, S/p AICD -CAD s/p CABG 2019 -HLD -PAF on renal adjusted Eliquis 2.5mg BID -HTN -Stroke with left hemiparesis History of present illness: 76 year old male with above past medical hx presented to ER yesterday with complaint of generalized weakness, decreased po intake. This was patient's second ER visit in past week for weakness. Upon presentation, patient was noted to be coughing, states has had cough x 1 week. initial Temp was 99.2. EKG showed sinus tach of 100. Chest xray showed cardiomegaly and atelectatic changes in right upper and left lung base. Creatinine noted to be up to 2.40 from 2. Sodium was 132, potassium was 5.2 Trop 0.04, BNP 3860. Patient found to be covid positive. Patient denies chest pain. Currently on Vapotherm. PFSH PFSH Medical History (Updated 07/08/22 @ 12:48 by Bridgette Montenegro APRN) Chronic systolic heart failure Diabetes mellitus History of stroke Ischemic cardiomyopathy LV dysfunction Surgical History (Updated 07/08/22 @ 12:43 by Bridgette Montenegro APRN) AICD (automatic cardioverter/defibrillator) present Hx of CABG Family History (Updated 07/07/22 @ 19:02 by Tiffanie Doan RN) Other Family history of cancer Social History (Updated 07/07/22 @ 19:05 by Tiffanie Doan RN) Smoking Status: Former smoker pack-years: 20 second hand exposure: Yes alcohol intake: never substance use type: denies use current occupational status: retired Travel in the last 8 weeks: None household members: spouse and family housing: house caffeine: Yes Review of Systems Review of Systems Review of systems:: pertinent systems reviewed and negative unless documented below Constitutional Constitutional: Reports fatigue, Denies headache(s), Reports poor appetite and Reports weakness ENT Ears, Nose, Mouth, and Throat: Denies headache(s) *Cardiovascular Cardiovascular: Denies chest pain *Respiratory Respiratory: Reports system reviewed and no additional complaints, except as documented and Reports cough *Gastrointestinal Gastrointestinal: Reports system reviewed and no additional complaints, except as documented *Neurologic Neurologic: Denies confusion, Denies headache(s) and Reports weakness Psychiatric Psychiatric: Reports system reviewed and no additional complaints, except as documented and Denies confusion Endocrine Endocrine: Reports fatigue Exam Data for Last 24 hours Vital signs and Labs for Last 24 Hours: Temp Pulse Resp BP Pulse Ox FiO2 99.8 F H 80 18 109/61 L 96 80 07/08/22 10:24 07/08/22 08:00 07/08/22 07:20 07/08/22 07:20 07/08/22 10:14 07/08/22 10:14 Laboratory Results - last 24 hr 07/07/22 16:22: Urine Color Yellow, Urine Appearance Clear, Urine pH 5.5, Ur Specific [place] 1.025, Urine Protein 1+, Urine Glucose (UA) Negative, Urine Ketones 1+, Urine Blood 2+, Urine Nitrate Negative, Urine Bilirubin 1+ A, Urine Urobilinogen 1.0, Ur Leukocyte Esterase Negative, Urine RBC 3-5, Urine WBC 3-5, Ur Squamous Epith Cells 3-5, Urine Bacteria 1+ 07/07/22 16:32: Specimen Source Left radial, O2 % 4lpm, ABG pH 7.40, ABG pCO2 29.0 L, ABG pO2 56.7 L, ABG HCO3 17.5 L, ABG Total CO2 18.4 L, ABG O2 Saturation 90, ABG Base Excess -7.4 L, Tin Test Acceptable 07/07/22 16:34: WBC 4.4 L, RBC 4.20 L, Hgb 13.2 L, Hct 41.4 L, MCV 98.7 H, MCH 31.4 H, MCHC 31.8, RDW 13.2, Plt Count 201, MPV 9.3, Neut % (Auto) 81.7 H, Lymph % (Auto) 12.7, [place] % (Auto) 4.8, Eos % (Auto) 0.2, Baso % (Auto) 0.7, Neut # (Auto) 3.6, Lymph # (Auto) 0.6 L, [place] # (Auto) 0.2, Eos # (Auto) 0.0, Baso # (Auto) 0.0 07/07/22 16:34: Sodium 133 L, Potassium 5.2 H, Chloride 101, Carbon Dioxide 22, Anion Gap 15.2 H, BUN 38 H, Creatinine 2.40 H, Estimated Creat Clear 28, Estimated GFR
--- NOTE | 2022-07-08 11:18 | CA_ITS ---
APPROVED REPORT EXAM: Comprehensive 2D, Doppler, and color-flow Echocardiogram Court Administrator: Katie Callejas, RT(R) Ht: 5 ft 4 in Wt: 193lbs BSA: 1.93 BP: 109/61 mmHg Indications: ex smoker, CM, CABG 2018, AFIB, CAD, old CVA, COVID, EF 20-25% 04/28, AICD 2D Dimensions LVOT 2.21 cm (M/F) 1.5-2.5 M-Mode Dimensions RVDd 2.18 cm (0.9-2.6) LA Diam 3.66 cm (1.9-4.0) LVDd 5.96 cm (3.5-5.7) Ao Diam 2.83 cm (2.0-3.7) LVDs 5.64 cm (3.5-5.7) IVSd 0.75 cm (0.6-1.1) PWd 0.71 cm (0.6-1.1) EF (Teich) 11.90% FS 5.40% EDV (Teich) 177.30 mL ESV (Teich) 156.20 mL LV Diastology E Decel Time 333.00 (160-240 msec) E/A Ratio 0.71 MED E' 3.10 (< 7 cm/sec) E'/MED E' Ratio 24.90 (>14) LAT E' 7.30 (<10 cm/sec) E/LAT E' Ratio 10.58 (>14) Mitral Valve MV A Velocity 108.00 (40-130 cm/s) E/A Ratio 0.71 MV Decel. Time 333.00 (160-240 ms) Tricuspid Valve TR P. Velocity 256.00 cm/s RAP Estimate 15.00 mmHg RVSP 41.30 mmHg Left Ventricle Left atrium is mildly enlarged, left ventricle is mildly dilated, severe reduced left ventricular systolic function, visually estimated ejection fraction 25%, there is marked hypokinesis involving mid to distal septum, anterior, anterior apical and apical wall, grade 1 diastolic dysfunction seen without tissue Doppler evidence of reduced left atrial pressure. Right Ventricle Right atrium and right ventricle are normal size and contractility, AICD lead seen in right ventricle. Aortic Valve Aortic valve is minimally thickened and fibrosed there is no aortic stenosis or aortic insufficiency. Mitral Valve Mitral valve leaflets are minimally thickened, there is mild mitral regurgitation. Tricuspid Valve Tricuspid valve is grossly normal, there is mild tricuspid regurgitation, calculated right ventricular systolic pressure is 41 mmHg. Pulmonic Valve Pulmonic valve is poorly visualized. Great Vessels Aortic root is normal size. Inferior vena cava is poorly visualized. Pericardium No significant pericardial effusion noted. Conclusion 1. Mildly enlarged left atrium, dilated left ventricle, severely reduced left ventricular systolic function, visually estimated ejection fraction 25% with multiple segmental wall motion abnormality described above, Doppler evidence of impaired LV relaxation seen. Tissue Doppler is not indicated will raise left atrial pressure. 2. Mild mitral and tricuspid regurgitation. Calculated right ventricular systolic pressure is 41 mmHg. 3. No significant pericardial effusion noted. 4. Inferior vena cava is poorly visualized. Electronically signed by : John Eduardo MD 07/09/2022 06:38:45
[2022-07-08 11:35] LABS: POC Glucose,Bedside 138 (70-110)
--- NOTE | 2022-07-08 14:08 | PC.NURSE ---
Pt a/o. Pt remains on vapotherm on 25 L and 50%. Pt's appetite is poor, states he has not been eating well lately. Did give update on pt's status this am. Continue to turn pt q 2. VSS. Afebrile at this time. Lovenox for vte, as well as eliquis, verified dosing was ok with pharmacy, [facility]. Lung sounds diminished in bases and non productive cough.
--- NOTE | 2022-07-08 15:36 | PC.NURSE ---
rounded on patient. patient was resting in bed with vapotherm in place. asleep. call light within reach
[2022-07-08 16:01] LABS: POC Glucose,Bedside 180 (70-110)
--- NOTE | 2022-07-08 16:53 | PC.NURSE ---
Addendum entered by Ernesto Ramirez RN 07/08/22 18:28: This RN did assist pt in drinking a protein shake made from dietary @ supper. Pt drank the whole shake 240 cc and stated it was good. Original Note: RT notified of sats decreased 88-89%. Vapotherm increased to 25 L and 60% at this time. Pt was sleeping.
[2022-07-08 21:19] LABS: POC Glucose,Bedside 301 (70-110)
--- NOTE | 2022-07-08 23:07 | PC.NURSE ---
pt increased to 25/80 per respiratory therapy to keep sats above 90
[2022-07-09] VITALS (15 sets, daily range): BP systolic 93–124; BP diastolic 46–66; PULSE 66–89; RESP 20–36; TEMP 36.6–37.8; O2SAT 87–92; BMI 29.2
--- NOTE | 2022-07-09 05:21 | PC.NURSE ---
upon 5am rounds it was noted pt with sats down to 86% on vapotherm 25/80; respiratory called; pt more confused and oriented to name only at this time, pt was confused to place and and year, vital signs obtained 124/53 p84 rr22 t 100.1 fsbs 258; respiratory increased vapotherm to 40/100 to keep sats above 90%; dr alamo was called and notified of pt with increased confusion, history of cva given, vitals given, note new orders for cmp, cbc and blood gas to be obtained at this time. pt on lovenox currently.
[2022-07-09 05:28] LABS: ABG Base Excess -9.3 mmol/L (-2.4-2.3); ABG HCO3 15.2 mmhg (22.0-26.0); ABG Oxygen Saturation 91 % (90-100); ABG PH 7.42 mmol/L (7.35-7.45); ABG PO2 57.1 mmhg (80-100); ABG TCO2 15.9 mmhg (23-27)
[2022-07-09 05:29] LABS: Allen's Test Acceptable; Oxygen 40L 100% %; Source Left Radial
--- NOTE | 2022-07-09 06:00 | PC.NURSE ---
pt remains w 02 stats at 88-89% on vapotherm; RT made aware, lung sounds diminished, VSS; pt is more confused and alert to name only, with with weakness noted to left side from previous cva, dr alamo made aware of pts new onset of confusion, f/c to bsd with clear dark yellow urine noted, skin with redness noted to rectal area and purple colored , what appears to be bruising under both buttocks, camera not availabe to take pictures, skin pwd, tele reveals NSR.
[2022-07-09 06:01] LABS: Basophils % 0.2 % (0.1-2.0); Eosinophils % 0.2 % (0.1-12.0); Hemoglobin 12.6 g/dL (14.1-18.0); Lymphocytes # 0.3 K/mm3 (0.7-4.5); Lymphocytes % 2.5 % (10-50); Mean Corpuscular HGB Conc 30.8 g/dL (31.8-35.4); Mean Corpuscular Hemoglobin 31.4 pg (27.0-31.2); Mean Corpuscular Volume 102.1 fl (80-94); Mean Platelet Volume 10.2 fl (7.4-10.4); Monocytes # 0.1 K/mm3 (0.1-1.0); Neutrophils % 96.2 % (37.0-80.0); Platelet Count 201 K/mm3 (142-424); Red Blood Count 4.02 M/mm3 (4.60-6.20); Red Cell Distribution Width 13.3 % (11.5-17.5); White Blood Count 11.5 K/mm3 (4.8-10.8)
[2022-07-09 06:07] LABS: MANUAL DIFFERENTIAL MANUAL DIFFERENTIAL (MANUAL DIFF)
[2022-07-09 06:10] LABS: Alanine Aminotransferase 28 U/L (12-78); Albumin Level 2.8 g/dl (3.5-5.0); Albumin/Globulin Ratio 0.8 (1.1-1.8); Alkaline Phosphatase 127 U/L (38-126); Anion Gap 13.8 mEq/L (5-15); Aspartate Amino Transferase 48 U/L (17-59); Bilirubin,Total 2.2 mg/dl (0.2-1.3); Blood Urea Nitrogen 51 mg/dl (9-20); Calcium 7.4 mg/dl (8.4-10.2); Carbon Dioxide 17 mmol/L (22.0-30.0); Chloride 106 mmol/L (98-107); Creatinine Clearance Estimated 32 mL/min (50-200); Estimated Glomerular Filt Rate 31 ml/min (>60); GFR (African American) 37 ML/MIN (>60); Globulin 3.4 g/dL (1.3-3.2); Glucose 254 mg/dl (74-100); Potassium 4.8 mmoL/L (3.5-5.1); Sodium 132 mmol/L (136-145); Total Protein,Serum 6.2 g/dl (6.3-8.2)
[2022-07-09 06:37] LABS: Lymphocytes % 5 % (10-50); Monocytes % 1 % (2-9); Neutrophils % 92 % (42-76); Platelet Estimate Normal; Total Cells Counted 100
[2022-07-09 06:38] LABS: Anisocytosis 1+; Macrocytosis 1+; Ovalocytes 1+
--- NOTE | 2022-07-09 06:52 | PC.NURSE ---
RT at bedside at this time
[2022-07-09 07:13] LABS: POC Glucose,Bedside 258 (70-110)
--- NOTE | 2022-07-09 08:49 | EXP.ACUTE.PN ---
Subjective *Date: 07/09/22 *Time: 08:54 Interval history: Patient with no new complaints today, O2 level dropped overnight and vapotherm increased, non rebreather mask added. Medical Exam Vital signs and Labs for Last 24 Hours: Temp Pulse Resp BP Pulse Ox FiO2 99.0 F 82 20 106/46 L 92 L 100 07/09/22 08:00 07/09/22 08:00 07/09/22 08:00 07/09/22 08:00 07/09/22 08:00 07/09/22 06:28 Laboratory Results - last 24 hr 07/08/22 11:15: POC Glucose 138 H 07/08/22 15:22: POC Glucose 180 H 07/08/22 20:52: POC Glucose 301 H* 07/09/22 05:02: POC Glucose 258 H 07/09/22 05:17: Specimen Source Left radial, O2 % 40l 100%, ABG pH 7.42, ABG pCO2 24.0 L, ABG pO2 57.1 L, ABG HCO3 15.2 L, ABG Total CO2 15.9 L, ABG O2 Saturation 91, ABG Base Excess -9.3 L, Tin Test Acceptable 07/09/22 05:36: WBC 11.5 H D, RBC 4.02 L, Hgb 12.6 L, Hct 41.0 L, MCV 102.1 H, MCH 31.4 H, MCHC 30.8 L, RDW 13.3, Plt Count 201, MPV 10.2, Neut % (Auto) 96.2 H, Lymph % (Auto) 2.5 L, [place] % (Auto) 1.0 L, Eos % (Auto) 0.2, Baso % (Auto) 0.2, Neut # (Auto) 11.0 H, Lymph # (Auto) 0.3 L, [place] # (Auto) 0.1, Eos # (Auto) 0.0, Baso # (Auto) 0.0, Total Counted 100, Neutrophils % (Manual) 92 H, Band Neutrophils % 2.0, Lymphocytes % (Manual) 5 L, Monocytes % (Manual) 1 L, Platelet Estimate Normal, Anisocytosis 1+, Macrocytosis 1+, Ovalocytes 1+ 07/09/22 05:36: Sodium 132 L, Potassium 4.8, Chloride 106, Carbon Dioxide 17 L, Anion Gap 13.8, BUN 51 H D, Creatinine 2.10 H, Estimated Creat Clear 32, Estimated GFR 31 L, Est GFR ( Amer) 37 L, Glucose 254 H, Calcium 7.4 L, Total Bilirubin 2.2 H, AST 48 D, ALT 28, Alkaline Phosphatase 127 H, Total Protein 6.2 L, Albumin 2.8 L, Globulin 3.4 H, Albumin/Globulin Ratio 0.8 L I & O for Labs for Last 24 Hours: Intake & Output 07/06/22 07/07/22 07/08/22 07/09/22 23:59 23:59 23:59 23:59 Intake Total 1742 / 1742 1162 / 1162 Output Total 200 / 200 1950 / 1950 400 / 400 Balance -200 / -200 -208 / -208 762 / 762 Weight 171 lb 5 oz 169 lb 12.095 oz 171 lb 1.259 oz Constitutional: no acute distress Respiratory: crackles (bibasilar) Cardiac: Reg Rate and Rhythm Extremities: edema Assessment and Plan *Assessment and plan (1) COVID-19 virus infection: Status: Acute Category: Medical Code(s): U07.1 - COVID-19 (2) Generalized weakness: Status: Acute Category: Medical Code(s): R53.1 - Weakness (3) Acute respiratory failure with hypoxia: Status: Acute Category: Medical Code(s): J96.01 - Acute respiratory failure with hypoxia (4) Diabetes mellitus: Status: Chronic Qualifiers: Diabetes mellitus complication status: with other specified complication Diabetes mellitus correction insulin use: without correction use Diabetes mellitus type: type 2 Qualified Code(s): E11.69 - Type 2 diabetes mellitus with other specified complication Category: Medical Code(s): E11.9 - Type 2 diabetes mellitus without complications (5) Chronic systolic heart failure: Status: Chronic Category: Medical Code(s): I50.22 - Chronic systolic (congestive) heart failure (6) Ischemic cardiomyopathy: Status: Chronic Category: Medical Code(s): I25.5 - Ischemic cardiomyopathy (7) History of stroke: Status: Chronic Category: Medical Code(s): Z86.73 - Personal history of transient ischemic attack (TIA), and cerebral infarction without residual deficits (8) Hypoxia: Status: Acute Category: Medical Code(s): R09.02 - Hypoxemia Assessment and plan all Dx Plan of Treatment: Patient's supplemental oxygen requirements have increased overnight. Plan pulmonology consult today. Spoke to patient's daughter about his current condition and treatment plan.
--- NOTE | 2022-07-09 09:02 | XR_ITS ---
FINAL REPORT CLINICAL HISTORY: cough, covid +, fever COMPARISON: July 07, 2022 FINDINGS: A single portable view of the chest was obtained. There are postoperative changes from median sternotomy. A left subclavian ICD is present. There is cardiomegaly. The mediastinum is within normal limits. There are worsening pulmonary opacities consistent with worsening pneumonia. The bony thorax is intact. IMPRESSION: Worsening pulmonary opacities consistent with worsening pneumonia. Reviewed, Interpreted and Dictated by Darien Antony III, MD Transcribed by [place] Authenticated and . [facility]
--- NOTE | 2022-07-09 09:07 | EXP.CARD.PN ---
Subjective Subjective Date: 07/09/22 Time: 08:00 Principal diagnosis: covid 19, acute hypoxic respiratory failure, weakness Interval history: 02 sat dropped over night, vapotherm increased and non rebreather added. Creatinine down to 2.10 today. Repeat echo with no significant change, see report below. WBC up to 11.5, temp 99. Repeat chest xray ordered. Primary service plan to consult pulmonary today. Echo 07/08 Conclusion 1.? Mildly enlarged left atrium, dilated left ventricle, severely reduced left ventricular systolic function, visually estimated ejection fraction 25% with multiple segmental wall motion abnormality described above, Doppler evidence of impaired LV relaxation seen.? Tissue Doppler is not indicated will raise left atrial pressure. 2.? Mild mitral and tricuspid regurgitation.? Calculated right ventricular systolic pressure is 41 mmHg. 3.? No significant pericardial effusion noted. 4.? Inferior vena cava is poorly visualized. Exam Data for Last 24 hours Vital signs and Labs for Last 24 Hours: Temp Pulse Resp BP Pulse Ox FiO2 99.0 F 82 20 106/46 L 92 L 100 07/09/22 08:00 07/09/22 08:00 07/09/22 08:00 07/09/22 08:00 07/09/22 08:00 07/09/22 06:28 Laboratory Results - last 24 hr 07/08/22 11:15: POC Glucose 138 H 07/08/22 15:22: POC Glucose 180 H 07/08/22 20:52: POC Glucose 301 H* 07/09/22 05:02: POC Glucose 258 H 07/09/22 05:17: Specimen Source Left radial, O2 % 40l 100%, ABG pH 7.42, ABG pCO2 24.0 L, ABG pO2 57.1 L, ABG HCO3 15.2 L, ABG Total CO2 15.9 L, ABG O2 Saturation 91, ABG Base Excess -9.3 L, Tin Test Acceptable 07/09/22 05:36: WBC 11.5 H D, RBC 4.02 L, Hgb 12.6 L, Hct 41.0 L, MCV 102.1 H, MCH 31.4 H, MCHC 30.8 L, RDW 13.3, Plt Count 201, MPV 10.2, Neut % (Auto) 96.2 H, Lymph % (Auto) 2.5 L, [place] % (Auto) 1.0 L, Eos % (Auto) 0.2, Baso % (Auto) 0.2, Neut # (Auto) 11.0 H, Lymph # (Auto) 0.3 L, [place] # (Auto) 0.1, Eos # (Auto) 0.0, Baso # (Auto) 0.0, Total Counted 100, Neutrophils % (Manual) 92 H, Band Neutrophils % 2.0, Lymphocytes % (Manual) 5 L, Monocytes % (Manual) 1 L, Platelet Estimate Normal, Anisocytosis 1+, Macrocytosis 1+, Ovalocytes 1+ 07/09/22 05:36: Sodium 132 L, Potassium 4.8, Chloride 106, Carbon Dioxide 17 L, Anion Gap 13.8, BUN 51 H D, Creatinine 2.10 H, Estimated Creat Clear 32, Estimated GFR 31 L, Est GFR ( Amer) 37 L, Glucose 254 H, Calcium 7.4 L, Total Bilirubin 2.2 H, AST 48 D, ALT 28, Alkaline Phosphatase 127 H, Total Protein 6.2 L, Albumin 2.8 L, Globulin 3.4 H, Albumin/Globulin Ratio 0.8 L I & O for Last 24 hours: Intake & Output 07/06/22 07/07/22 07/08/22 07/09/22 23:59 23:59 23:59 23:59 Intake Total 1742 / 1742 1162 / 1162 Output Total 200 / 200 1950 / 1950 400 / 400 Balance -200 / -200 -208 / -208 762 / 762 Weight 171 lb 5 oz 169 lb 12.095 oz 171 lb 1.259 oz Constitutional Constitutional: no acute distress *Routine HEENT Exam Head: Present normocephalic Eye: Present EOMI and PERRL ENT: Present mucous membranes moist *Routine Neck Exam Neck: Present supple; Absent lymphadenopathy *Routine Respiratory Exam Respiratory: Present wheezes *Routine Cardiovascular Exam Cardiovascular: Present RRR *Routine Abdominal Exam Abdominal: Present soft and normoactive bowel sounds; Absent tenderness *Routine Extremities Exam Extremities: Absent cyanosis, clubbing or edema *Routine Skin Exam Skin: Present warm; Absent rash *Routine Neurological Exam Neurological: Present alert and oriented X3 Progress Note: A&P Assessment and plan (1) COVID-19 virus infection: Status: Acute (2) Generalized weakness: Status: Acute (3) Acute respiratory failure with hypoxia: Status: Acute (4) Diabetes mellitus: Status: Chronic (5) Chronic systolic heart failure: Status: Chronic (6) Ischemic cardiomyopathy: Status: Chronic (7) History of stroke: Status: Chronic (8) Hypoxia: Status: Acute Assessment and Plan Assessment and
--- NOTE | 2022-07-09 09:26 | EXP.PULM.CON ---
History of Present Illness History of present illness: Patient altered not appropriately responding to verbal commands. Much of the history is obtained from chart review 76-year-old male history of CAD, ischemic cardiomyopathy type 2 diabetes mellitus depression, CKD was brought to the ER with weakness, found to have low-grade fevers. Received IV fluids. Also found to be having COVID-19 pneumonia. Initiated on Vapotherm on admission, increasing ox requirements and pulmonary was called for further evaluation. [facility] Medical History (Updated 07/09/22 @ 10:44 by Melania Fountain MD) Chronic systolic heart failure Diabetes mellitus History of stroke Ischemic cardiomyopathy LV dysfunction Pneumonia Surgical History (Updated 07/08/22 @ 12:43 by Bridgette Montenegro APRN) AICD (automatic cardioverter/defibrillator) present Hx of CABG Family History (Updated 07/07/22 @ 19:02 by Tiffanie Doan, BHUMIKA) Other Family history of cancer Social History (Updated 07/07/22 @ 19:05 by Tiffanie Doan RN) Smoking Status: Former smoker pack-years: 20 second hand exposure: Yes alcohol intake: never substance use type: denies use current occupational status: retired Travel in the last 8 weeks: None household members: spouse and family housing: house caffeine: Yes Review of Systems Review of Systems Review of systems:: unable to obtain Review of systems (narrative): Unable to obtain, patient altered, not responding appropriately verbal commands. Pulmonology Exam Inpatient Vital signs and Labs for Last 24 Hours: Temp Pulse Resp BP Pulse Ox FiO2 99.0 F 82 20 106/46 L 92 L 100 07/09/22 08:00 07/09/22 08:00 07/09/22 08:00 07/09/22 08:00 07/09/22 08:00 07/09/22 06:28 Laboratory Results - last 24 hr 07/08/22 11:15: POC Glucose 138 H 07/08/22 15:22: POC Glucose 180 H 07/08/22 20:52: POC Glucose 301 H* 07/09/22 05:02: POC Glucose 258 H 07/09/22 05:17: Specimen Source Left radial, O2 % 40l 100%, ABG pH 7.42, ABG pCO2 24.0 L, ABG pO2 57.1 L, ABG HCO3 15.2 L, ABG Total CO2 15.9 L, ABG O2 Saturation 91, ABG Base Excess -9.3 L, Tin Test Acceptable 07/09/22 05:36: WBC 11.5 H D, RBC 4.02 L, Hgb 12.6 L, Hct 41.0 L, MCV 102.1 H, MCH 31.4 H, MCHC 30.8 L, RDW 13.3, Plt Count 201, MPV 10.2, Neut % (Auto) 96.2 H, Lymph % (Auto) 2.5 L, [place] % (Auto) 1.0 L, Eos % (Auto) 0.2, Baso % (Auto) 0.2, Neut # (Auto) 11.0 H, Lymph # (Auto) 0.3 L, [place] # (Auto) 0.1, Eos # (Auto) 0.0, Baso # (Auto) 0.0, Total Counted 100, Neutrophils % (Manual) 92 H, Band Neutrophils % 2.0, Lymphocytes % (Manual) 5 L, Monocytes % (Manual) 1 L, Platelet Estimate Normal, Anisocytosis 1+, Macrocytosis 1+, Ovalocytes 1+ 07/09/22 05:36: Sodium 132 L, Potassium 4.8, Chloride 106, Carbon Dioxide 17 L, Anion Gap 13.8, BUN 51 H D, Creatinine 2.10 H, Estimated Creat Clear 32, Estimated GFR 31 L, Est GFR ( Amer) 37 L, Glucose 254 H, Calcium 7.4 L, Total Bilirubin 2.2 H, AST 48 D, ALT 28, Alkaline Phosphatase 127 H, Total Protein 6.2 L, Albumin 2.8 L, Globulin 3.4 H, Albumin/Globulin Ratio 0.8 L I & O for Labs for Last 24 Hours: Intake & Output 07/06/22 07/07/22 07/08/22 07/09/22 23:59 23:59 23:59 23:59 Intake Total 1742 / 1742 1162 / 1162 Output Total 200 / 200 1950 / 1950 400 / 400 Balance -200 / -200 -208 / -208 762 / 762 Weight 171 lb 5 oz 169 lb 12.095 oz 171 lb 1.259 oz Constitutional: severe distress, chronically ill appearing and diaphoretic Head: normocephalic and atraumatic ENT: normal exam, normal oropharynx and mucous membranes moist Neck: normal inspection and full ROM Respiratory: accessory muscle use, respiratory distress, rhonchi, wheezes, crackles, diminished air movement and able to speak in complete sentences Cardiac: S1/S2 or radial pulses present GI: soft, distention, tenderness or guarding Rectal (male): deferred Skin: intact, cyanosis or jaundice Neuro: alert, awake and oriented x 3 Extremities: normal inspection, edema
--- NOTE | 2022-07-09 10:33 | CA_ITS ---
FINAL REPORT CLINICAL HISTORY: Hypoxia edema,COVID TDS-PT CONDITION FINDINGS: Color Doppler, duplex Doppler and compression sonography of the bilateral lower extremities was performed. There is no evidence of deep venous thrombosis from the level of the groin to the calf. The deep veins are patent and compressible. IMPRESSION: No evidence of deep venous thrombosis bilateral lower extremities. Reviewed, Interpreted and Dictated by Darien Antony III, MD Transcribed by Agustin Ruiz Authenticated and [facility]
--- NOTE | 2022-07-09 11:09 | EXP.PHA.CONS ---
Pharmacy Consult Date: 07/09/22 Time: 11:09 Referring provider: DR. FOUNTAIN Reason for Consult:: VANCOMYCIN DOSING X1 DOSE Allergies Allergy/AdvReac Type Severity Reaction Status Date / Time RED SOAP Allergy Rash Uncoded 04/07/22 13:14 Home Medications Medication Instructions Recorded Confirmed Type acarbose 25 mg tablet 25 mg PO AC Diabetes 02/06/21 07/07/22 History aspirin 81 mg chewable tablet 81 mg PO DAILY Heart disease 02/06/21 07/07/22 History bumetanide 1 mg tablet 1 mg PO DAILY PRN Edema #60 tabs 08/13/21 07/07/22 Rx metformin 500 mg tablet 1,000 mg PO BID Diabetes 01/12/22 07/07/22 History apixaban 2.5 mg tablet 2.5 mg PO BID Blood thinner #60 04/07/22 07/07/22 Rx tabs bisoprolol fumarate 10 mg tablet 10 mg PO BID Heart disease 06/24/22 07/08/22 History ergocalciferol (vitamin D2) 1,250 50,000 unit PO WEEKLY Supplement 06/24/22 07/08/22 History mcg (50,000 unit) capsule sacubitril 24 mg-valsartan 26 mg 1 tab PO BID Heart failure 06/24/22 07/08/22 History tablet atorvastatin 20 mg tablet 20 mg PO HS Cholesterol 07/08/22 07/08/22 History escitalopram oxalate 5 mg tablet 5 mg PO DAILY Depression 07/08/22 07/08/22 History (Lexapro) tamsulosin 0.4 mg capsule (Flomax) 0.4 mg PO HS prostate 07/08/22 07/08/22 History New Prescriptions to Start Prescriptions: Height: 1.63 m Weight: 77.6 kg Laboratory Results:: Laboratory Results - last 24 hr 07/08/22 11:15: POC Glucose 138 H 07/08/22 15:22: POC Glucose 180 H 07/08/22 20:52: POC Glucose 301 H* 07/09/22 05:02: POC Glucose 258 H 07/09/22 05:17: Specimen Source Left radial, O2 % 40l 100%, ABG pH 7.42, ABG pCO2 24.0 L, ABG pO2 57.1 L, ABG HCO3 15.2 L, ABG Total CO2 15.9 L, ABG O2 Saturation 91, ABG Base Excess -9.3 L, Tin Test Acceptable 07/09/22 05:36: WBC 11.5 H D, RBC 4.02 L, Hgb 12.6 L, Hct 41.0 L, MCV 102.1 H, MCH 31.4 H, MCHC 30.8 L, RDW 13.3, Plt Count 201, MPV 10.2, Neut % (Auto) 96.2 H, Lymph % (Auto) 2.5 L, Jack % (Auto) 1.0 L, Eos % (Auto) 0.2, Baso % (Auto) 0.2, Neut # (Auto) 11.0 H, Lymph # (Auto) 0.3 L, Jack # (Auto) 0.1, Eos # (Auto) 0.0, Baso # (Auto) 0.0, Total Counted 100, Neutrophils % (Manual) 92 H, Band Neutrophils % 2.0, Lymphocytes % (Manual) 5 L, Monocytes % (Manual) 1 L, Platelet Estimate Normal, Anisocytosis 1+, Macrocytosis 1+, Ovalocytes 1+ 07/09/22 05:36: Sodium 132 L, Potassium 4.8, Chloride 106, Carbon Dioxide 17 L, Anion Gap 13.8, BUN 51 H D, Creatinine 2.10 H, Estimated Creat Clear 32, Estimated GFR 31 L, Est GFR ( Amer) 37 L, Glucose 254 H, Calcium 7.4 L, Total Bilirubin 2.2 H, AST 48 D, ALT 28, Alkaline Phosphatase 127 H, Total Protein 6.2 L, Albumin 2.8 L, Globulin 3.4 H, Albumin/Globulin Ratio 0.8 L Medical History: Medical History (Updated 07/09/22 @ 10:44 by Melania Fountain MD) Chronic systolic heart failure Diabetes mellitus History of stroke Ischemic cardiomyopathy LV dysfunction Pneumonia Assessment and Plan Assessment and plan all Dx Assessment and Plan for all problems:: Age: 76 yo Serum creatinine: 2.1 mg/dL Height: 64.2 Inches Weight (kg): 77.6 Assessment: IBW (kg): 59.66 Dosing wt(kg): 77.6 Estimated Creatinine clearance (ml/min): 24.5 CRCL method: Cockcroft and Gault using ibw(default). Drug selected: Vancomycin Loading dose (mg): 0 Vd (liters): 62.1 (factor used: 0.8 L/kg) Hunter (hr-1): 0.025 Half life (hrs): 27.73 Recommended dose: 1250 mg Interval: 36 hrs Infusion time (hrs): 2.0 Predicted peak (mcg/mL): 33.1 Predicted trough (mcg/mL): 14.15 Total body weight is being used for vancomycin dosing. Renal function is stable [ ] /unstable [ ] Recommendations: Give Vancomycin 1250 mg q 36 hrs with an expected Cpeak of 33.1 mcg/ml and an expected Ctrough of 14.15 mcg/ml. MD WANTS TO DO ONE DOSE AT THIS TIME. ----Vanco only - ignore for aminoglycosides----- C
[2022-07-09 11:19] LABS: Adenovirus,PCR Not Detected (NotDetected); Bordetella Pertussis Not Detected (NotDetected); Chlamydophila Pneumoniae, PCR Not Detected (NotDetected); Coronavirus 229E Not Detected (NotDetected); Coronavirus NL63 Not Detected (NotDetected); Coronavirus OC43 Not Detected (NotDetected); Coronovirus HKU1,PCR Not Detected (NotDetected); Human Metapneumovirus Not Detected (NotDetected); Influenza A, PCR Not Detected (NotDetected); Influenza AH1, 2009 Not Detected (NotDetected); Influenza AH1, PCR Not Detected (NotDetected); Influenza AH3,PCR Not Detected (NotDetected); Influenza B, PCR Not Detected (NotDetected); Mycoplasma Pneumoniae, PCR Not Detected (NotDetected); Parainfluenza 1, PCR Not Detected (NotDetected); Parainfluenza 2, PCR Not Detected (NotDetected); Parainfluenza 3, PCR Not Detected (NotDetected); Parainfluenza 4, PCR Not Detected (NotDetected); Respiratory Syncytial Virus Not Detected (NotDetected); Rhinovirus/Enterovirus Not Detected (NotDetected)
[2022-07-09 11:37] LABS: Lactate Dehydrogenase 494 U/L (313-618)
[2022-07-09 11:43] LABS: C-Reactive Protein 233.4 mg/L (0-4)
[2022-07-09 11:44] LABS: D-Dimer 0.93 ug/mL (0.0-0.5)
--- NOTE | 2022-07-09 12:00 | PC.NURSE ---
arrived to COVID unit room 263
--- NOTE | 2022-07-09 15:21 | CT_ITS ---
FINAL REPORT TECHNIQUE: Axial images were obtained from the lung apex to the mid abdomen by computed tomography. Coronal reformatted images were obtained. This study was performed with techniques to keep radiation doses as low as reasonably achievable, (ALARA). Individualized dose reduction techniques using automated exposure control or adjustment of mA and/or kV according to the patient''s size were employed. CLINICAL HISTORY: altered mental status not r/t metabolic changes FINDINGS: A left subclavian pacemaker is present. There are postoperative changes from median sternotomy. There is no axillary adenopathy. There is no hilar adenopathy. There is mediastinal adenopathy, nonspecific. There is cardiomegaly. There is no pericardial or pleural effusion. Limited images of the upper abdomen are unremarkable. In the lung window images, there are widespread bilateral alveolar pulmonary opacities which are consistent with multifocal bilateral pneumonia. No suspicious nodule is identified. IMPRESSION: Findings are consistent with multifocal bilateral pneumonia. Reviewed, Interpreted and Dictated by Darien Antony III, MD Transcribed by [place] Authenticated and . [facility]
--- NOTE | 2022-07-09 15:21 | CT_ITS ---
FINAL REPORT CLINICAL HISTORY: altered mental status not r/t metabolic changes FINDINGS: Axial images of the head were obtained without contrast. Coronal reformatted images were also obtained. This study was performed with techniques to keep radiation doses as low as reasonably achievable (ALARA). Individualized dose reduction techniques using automated exposure control or adjustment of mA and/or kV according to the patient's size were employed. There is generalized age-appropriate atrophy. Periventricular low-attenuation areas are seen consistent with moderate chronic ischemic changes. There is no evidence of intracranial hemorrhage or mass. There are bilateral areas of encephalomalacia, right greater than left consistent with prior infarcts. There is a focus of encephalomalacia in the right cerebellar hemisphere. There is no evidence of acute infarct. There is no evidence of shift of the midline structures. No skull abnormality is seen on the bone window images. IMPRESSION: Atrophy and moderate periventricular chronic ischemic changes. No acute intracranial abnormality identified. Reviewed, Interpreted and Dictated by Darien Antony III, MD Transcribed by Bridgette Beard Authenticated and [facility]
--- NOTE | 2022-07-09 18:14 | PC.NURSE ---
Addendum entered by Darcy Rehman RN 07/09/22 18:25: bed alarm on for safety. Pt has not attempted to get OOB. Original Note: shift summary: Pt is COVID-19 positive and in COVID unit on Vapotherm 40L/100% with a NRB mask. O2 sats have remained 88-94%. Pt does not tolerate being turned to left side as he desats to the low 80s. Will tolerate to the right side. Pacemaker present but has not been paced on tele. NSR on tele. Hypotension noted but MAP>62. Minimal lung sounds on the left. Right side diminished with ronchii. Pt unable to cough to produce specimen for sputum cx. GCS 13 (4/5). Platt catheter noted with zeyad UOP, aprox 500mL this shift. No MIVF infusing. Has not eaten or drank this shift. updated twice. Pt does have vision impairment due to bilateral cataracts.
[2022-07-10] VITALS (23 sets, daily range): BP systolic 91–122; BP diastolic 50–75; PULSE 73–111; RESP 18–26; TEMP 36.4–37.4; O2SAT 86–95; BMI 23.5
--- NOTE | 2022-07-10 05:22 | PC.NURSE ---
pt alert to self, can state name and birthdate, has remained on vapotherm 40L/100% with non rebreather over, O2 sats 88-91% with occassional desats with coughing and when turned to left side, dropping to low 80's, HR 72-81, SBP 94-110, olivas remains in place, 350 mL of urine out so far
--- NOTE | 2022-07-10 08:40 | EXP.ACUTE.PN ---
Subjective *Date: 07/10/22 *Time: 08:47 Interval history: Pulmonology note reviewed. Patient worse overnight, O2 sats trending down. Medical Exam Vital signs and Labs for Last 24 Hours: Temp Pulse Resp BP Pulse Ox FiO2 98.8 F 80 24 104/59 L 90 L 100 07/10/22 08:00 07/10/22 08:00 07/10/22 08:00 07/10/22 08:00 07/10/22 08:00 07/10/22 08:00 Laboratory Results - last 24 hr 07/09/22 11:05: D-Dimer 0.93 H 07/09/22 11:05: Lactate Dehydrogenase 494, C-Reactive Protein 233.4 H 07/09/22 11:05: Chlamy pneumoniae PCR Not detected, Adenovirus (PCR) Not detected, B. pertussis DNA (PCR) Not detected, Coronavirus OC43 (PCR) Not detected, Coronavirus HKU1 (PCR) Not detected, Coronavirus 229E (PCR) Not detected, Coronavirus NL63 (PCR) Not detected, Human Metapneumovir PCR Not detected, Influenza A (H1) PCR Not detected, Influ A (H1N1/09) PCR Not detected, Influenza A (H3) PCR Not detected, Influenza Type A (PCR) Not detected, Influenza Type B (PCR) Not detected, M. pneumoniae (PCR) Not detected, Parainfluenza 1 (PCR) Not detected, Parainfluenza 2 (PCR) Not detected, Parainfluenza 3 (PCR) Not detected, Parainfluenza 4 (PCR) Not detected, RSV (PCR) Not detected, Entero/Rhino (PCR) Not detected I & O for Labs for Last 24 Hours: Intake & Output 07/07/22 07/08/22 07/09/22 07/10/22 23:59 23:59 23:59 23:59 Intake Total 1742 / 1742 2091 / 2092 120 / 120 Output Total 200 / 200 1950 / 1950 900 / 900 350 / 350 Balance -200 / -200 -208 / -208 1192 / 1192 -230 / -230 Weight 171 lb 5 oz 169 lb 12.095 oz 171 lb 1.259 oz 137 lb 14.4 oz Microbiology Reports for the Last 24 Hours: Microbiology 07/07/22 16:34 Blood Blood Culture - Preliminary NO GROWTH AFTER 48 HOURS 07/07/22 16:34 Blood Blood Culture - Preliminary NO GROWTH AFTER 48 HOURS Constitutional: somnolent Respiratory: crackles and diminished air movement Cardiac: Reg Rate and Rhythm GI: soft, tenderness or normal bowel sounds Assessment and Plan *Assessment and plan (1) COVID-19 virus infection: Status: Acute Category: Medical Code(s): U07.1 - COVID-19 (2) Generalized weakness: Status: Acute Category: Medical Code(s): R53.1 - Weakness (3) Acute respiratory failure with hypoxia: Status: Acute Category: Medical Code(s): J96.01 - Acute respiratory failure with hypoxia (4) Diabetes mellitus: Status: Chronic Qualifiers: Diabetes mellitus complication status: with other specified complication Diabetes mellitus medical terminologist insulin use: without medical terminologist use Diabetes mellitus type: type 2 Qualified Code(s): E11.69 - Type 2 diabetes mellitus with other specified complication Category: Medical Code(s): E11.9 - Type 2 diabetes mellitus without complications (5) Chronic systolic heart failure: Status: Chronic Category: Medical Code(s): I50.22 - Chronic systolic (congestive) heart failure (6) Ischemic cardiomyopathy: Status: Chronic Category: Medical Code(s): I25.5 - Ischemic cardiomyopathy (7) History of stroke: Status: Chronic Category: Medical Code(s): Z86.73 - Personal history of transient ischemic attack (TIA), and cerebral infarction without residual deficits (8) Hypoxia: Status: Acute Category: Medical Code(s): R09.02 - Hypoxemia Assessment and plan all Dx Assessment and Plan All Dx:: Patient continues to decline. Spoke to patient daughter and . Continue current care at this time.
--- NOTE | 2022-07-10 09:37 | P.PN_ITS ---
Subjective *Date: 07/10/22 *Time: 12:03 Interval history: No acute respiratory events overnight. Continued to be needing high flow nasal nonrebreather. Patient continued to be altered and weak Assessment and Plan *Assessment and plan (1) COVID-19 virus infection: Status: Acute Category: Medical Code(s): U07.1 - COVID-19 (2) Acute respiratory failure with hypoxia: Status: Acute Category: Medical Code(s): J96.01 - Acute respiratory failure with hypoxia (3) Pneumonia: Status: Acute Category: Medical Code(s): J18.9 - Pneumonia, unspecified organism Plan #Acute hypoxic respiratory failure: #COVID-19 pneumonia: Patient altered not appropriately responding to verbal commands. Much of the history is obtained from chart review 76-year-old male history of CAD, ischemic cardiomyopathy type 2 diabetes mellitus depression, CKD was brought to the ER with weakness, found to have low- grade fevers. Received IV fluids. Also found to be having COVID-19 pneumonia. Initiated on Vapotherm on admission, increasing ox requirements and pulmonary was called for further evaluation. ABG from admission personally reviewed, continued to have hypoxic respiratory failure PO2 57.1, metabolic acidosis with respiratory compensation, PCO2 24 with pH of 7.42. Labs reviewed, SHANNON on CKD. Thank you echo report from April 2021 reviewed, severe congestive heart with EF of 20 to 25% Chest x-ray admission reviewed, bilateral interstitial infiltrates. No dense consolidation. Chest x-ray from this morning reviewed, note of significant worsening of pulmonary infiltrates. Patient was initiated on remdesivir and dexamethasone upon admission. Interval update: No acute change in mentation. Continues to be altered. Continues to needing high flow nasal cannula with nonrebreather to maintain his saturations. Respiratory tests appear to be improved from yesterday. Does not appear to be tachypneic. Patient was initiated on broad-spectrum antibiotics. Mental and fluids were stopped. CT chest reviewed, bilateral diffuse dense airspace disease. No pleural effusions noted. Labs from today pending review. CT reported head no acute changes. D-dimer elevated 0.93. Lower extremity Doppler negative for DVT CRP significantly elevated at 233. Plan: -F/U ABG -Continue Proning protocol as tolerated -Continue High flow nasal to maintain O2 saturation goal of 90% above, currently 100% 40 L saturations maintained at 90%. Will escalate to CPAP if noted to have any worsening symptoms -Continue vancomycin and cefepime, pharmacy to renally dose. Blood cultures no growth 48 hours. Respiratory viral PCR negative. Follow with nasal MRSA PCR and sputum culture -Recommend avoid positive volume status. Management of other medical conditions as per primary team. Discussions with the family regarding goals of care. We will follow-up. -Recommend chemical GI ulcer and DVT prophylaxis -Strict aspiration precautions. Thank you for involving pulmonary in this patient care. Please call with any further questions or concerns. Total critical care time spent on this patient is 35 minutes managing acute life-threatening hypoxic respiratory failure needing HFNC.
--- NOTE | 2022-07-10 10:11 | EXP.CARD.PN ---
Subjective Subjective Date: 07/10/22 Time: 08:00 Principal diagnosis: covid 19, acute hypoxic respiratory failure, weakness Interval history: Patient continued to decline throughout the evening. Currently has pulmonary following. Ct of chest showed multifocal bilateral pneumonia. No pericardial or plearual effusions noted. Venous doppler negative for dvt. Morning labs pending Exam Data for Last 24 hours Vital signs and Labs for Last 24 Hours: Temp Pulse Resp BP Pulse Ox FiO2 98.8 F 80 24 104/59 L 90 L 100 07/10/22 08:00 07/10/22 08:00 07/10/22 08:00 07/10/22 08:00 07/10/22 08:00 07/10/22 08:00 Laboratory Results - last 24 hr 07/09/22 11:05: D-Dimer 0.93 H 07/09/22 11:05: Lactate Dehydrogenase 494, C-Reactive Protein 233.4 H 07/09/22 11:05: Chlamy pneumoniae PCR Not detected, Adenovirus (PCR) Not detected, B. pertussis DNA (PCR) Not detected, Coronavirus OC43 (PCR) Not detected, Coronavirus HKU1 (PCR) Not detected, Coronavirus 229E (PCR) Not detected, Coronavirus NL63 (PCR) Not detected, Human Metapneumovir PCR Not detected, Influenza A (H1) PCR Not detected, Influ A (H1N1/09) PCR Not detected, Influenza A (H3) PCR Not detected, Influenza Type A (PCR) Not detected, Influenza Type B (PCR) Not detected, M. pneumoniae (PCR) Not detected, Parainfluenza 1 (PCR) Not detected, Parainfluenza 2 (PCR) Not detected, Parainfluenza 3 (PCR) Not detected, Parainfluenza 4 (PCR) Not detected, RSV (PCR) Not detected, Entero/Rhino (PCR) Not detected I & O for Last 24 hours: Intake & Output 07/07/22 07/08/22 07/09/22 07/10/22 23:59 23:59 23:59 23:59 Intake Total 1742 / 1742 2091 / 2091 120 / 120 Output Total 200 / 200 1950 / 1950 900 / 900 350 / 350 Balance -200 / -200 -208 / -208 1192 / 1192 -230 / -230 Weight 171 lb 5 oz 169 lb 12.095 oz 171 lb 1.259 oz 137 lb 14.4 oz Microbiology Reports for the Last 24 Hours: Microbiology 07/07/22 16:34 Blood Blood Culture - Preliminary NO GROWTH AFTER 48 HOURS 07/07/22 16:34 Blood Blood Culture - Preliminary NO GROWTH AFTER 48 HOURS Constitutional Constitutional: morbidly obese and chronically ill appearing *Routine Cardiovascular Exam Cardiovascular: Present RRR, Normal S1 and Normal S2 *Routine Extremities Exam Extremities: Present pulses intact; Absent edema Progress Note: A&P Assessment and plan (1) COVID-19 virus infection: Status: Acute (2) Acute respiratory failure with hypoxia: Status: Acute (3) Pneumonia: Status: Acute Assessment and Plan Assessment and Plan for All Diagnoses:: Hx of Chronic systolic heart failure -Has AICD-last download on 05/2022 heart logic was positive for fluid overload. patient was adivsed to start bumex 1mg QD x 1 week then resume prn. unsure if patient has been taking daily or prn. -Last ef 04/2021 20-25%. Repeat shows no significant change. see above report -Patient does not appear to have exacerbation at this time, looks dry. -Continue to? hold Bumex/entresto until creatinine improves. 07/10-no signs of volume overload present. continue to hold diuretics and entresto due to hypotension CAD -Bypass in 2019 -Stress testing outpatient 07/10-no change Elevated trop -In the setting of acute illness. Denies chest pain. Outpatient stress testing as needed. -EKG negative for acute ischemic changes.\ PAF -NSR currently. Continue Bisoprolol 10mg and renal adjusted eliquis 2.5mg BID SHANNON -Hold diuretics/entresto. Continued BB. 07/10-CV summary: Patient continues to decline. Bilateral multifocal pneumonia noted. no pericardial or pleural effusions noted. Pulmonary following, recommends patient be moved to step down ICU. Morning labs pending. Continue holding entresto and diuretics due to hypotension and shannon. will continue to follow.
[2022-07-10 12:47] LABS: ABG Base Excess -10.7 mmol/L (-2.4-2.3); ABG HCO3 14.5 mmhg (22.0-26.0); ABG Oxygen Saturation 89 % (90-100); ABG PCO2 25.2 mmhg (35.0-45.0); ABG PH 7.38 mmol/L (7.35-7.45); ABG PO2 56.6 mmhg (80-100); ABG TCO2 15.3 mmhg (23-27)
[2022-07-10 12:49] LABS: Allen's Test Acceptable; Oxygen 40L 100% %; Source Left Radial
--- NOTE | 2022-07-10 13:52 | DIET.NUTRFU ---
Addendum entered by Greta Arciniega RD, LD 07/13/22 10:05: comfort measures are now in place, continues NPO status Original Note: Patient was made NPO today, too lethargic and altered mental status he at increased aspiration risk. Provider spoke to family about decline and poor prognosis. IVF was discontinued at this time d/t fluid overload- output was only 900ml and received 2000ml via IVF. Labs: BUN 51H (38), Cr 2.3 (2.1), Na 132L. Diuretic tx on hold. Will continue to monitor po status and IVF, patient is at increased risk of malnutrition with overall decline.
--- NOTE | 2022-07-10 14:39 | PC.NURSE ---
RT placed patient on CPAP at this time per MD order, tolerating well, current O2 saturation 95%, TV 400-500
--- NOTE | 2022-07-10 15:42 | PC.NURSE ---
Patient resting quietly in bed with cpap in place at this time, O2 saturations 92-95% on cpap, lung sounds diminished t/o left lung with exp rhonchi t/o right lung, RR 22-24, remains alert to person only, had difficulty swallowing this am, made NPO per MD order, changed code status to DNR per wifes request today, patient has been turned q2h and provided oral care, HR reg, NSR per telemetry, 1+ non pitting edema noted peripherally, voids per FC, urine yellow and clear, no s/s of distress noted, vss.
[2022-07-10 16:58] LABS: POC Glucose,Bedside 281 (70-110)
[2022-07-10 16:58] LABS: POC Glucose,Bedside 257 (70-110)
[2022-07-10 16:58] LABS: POC Glucose,Bedside 174 (70-110)
[2022-07-10 16:58] LABS: POC Glucose,Bedside 151 (70-110)
[2022-07-10 16:58] LABS: POC Glucose,Bedside 209 (70-110)
[2022-07-10 21:30] LABS: POC Glucose,Bedside 224 (70-110)
[2022-07-11] VITALS (20 sets, daily range): BP systolic 95–129; BP diastolic 45–88; PULSE 80–102; RESP 20–34; TEMP 36.6–37.1; O2SAT 93–97; BMI 27.5
[2022-07-11 05:22] LABS: POC Glucose,Bedside 261 (70-110)
--- NOTE | 2022-07-11 05:52 | PC.NURSE ---
Pt is currently resting at this time. He has been restless at times this shift. Decreased mental status noted this AM. Remains on Cpap @ 100%. Lungs are diminished on the left. Rhonchi noted on the left. O2 sats are in the mid to upper 90s this AM. VS currently stable. F/C draining to bedside with dark, yellow urine. No BM this Shift. Pt turned Q2 hr. Safety measures in place. RT in room getting Abg at this time.
[2022-07-11 06:26] LABS: ABG Base Excess -5.8 mmol/L (-2.4-2.3); ABG HCO3 17.5 mmhg (22.0-26.0); ABG Oxygen Saturation 95 % (90-100); ABG PCO2 28.7 mmhg (35.0-45.0); ABG PO2 74.7 mmhg (80-100); ABG TCO2 18.4 mmhg (23-27)
[2022-07-11 06:27] LABS: Allen's Test Acceptable; Source Right Radial
[2022-07-11 06:28] LABS: Lactate Arterial 3.4 mmol/L (0.4-2.0)
[2022-07-11 08:45] LABS: Basophils # 0.1 K/mm3 (0-0.2); Basophils % 0.4 % (0.1-2.0); Hematocrit 41.5 % (42.0-52.0); Hemoglobin 12.8 g/dL (14.1-18.0); Lymphocytes # 0.3 K/mm3 (0.7-4.5); Lymphocytes % 2.3 % (10-50); Mean Corpuscular Volume 100.2 fl (80-94); Mean Platelet Volume 10.3 fl (7.4-10.4); Monocytes # 0.2 K/mm3 (0.1-1.0); Neutrophils % 95.4 % (37.0-80.0); Platelet Count 307 K/mm3 (142-424); Red Blood Count 4.14 M/mm3 (4.60-6.20); Red Cell Distribution Width 13.5 % (11.5-17.5); White Blood Count 11.5 K/mm3 (4.8-10.8)
[2022-07-11 08:48] LABS: Chloride 114 mmol/L (98-107); Potassium 4.7 mmoL/L (3.5-5.1); Sodium 142 mmol/L (136-145)
[2022-07-11 08:50] LABS: Blood Urea Nitrogen 71 mg/dl (9-20); Creatinine Clearance Estimated 27 mL/min (50-200); Estimated Glomerular Filt Rate 28 ml/min (>60); GFR (African American) 33 ML/MIN (>60); MANUAL DIFFERENTIAL MANUAL DIFFERENTIAL (MANUAL DIFF)
[2022-07-11 08:51] LABS: Alanine Aminotransferase 30 U/L (12-78); Albumin Level 2.7 g/dl (3.5-5.0); Albumin/Globulin Ratio 0.7 (1.1-1.8); Alkaline Phosphatase 139 U/L (38-126); Anion Gap 13.7 mEq/L (5-15); Aspartate Amino Transferase 49 U/L (17-59); Bilirubin,Total 1.2 mg/dl (0.2-1.3); Calcium 8.4 mg/dl (8.4-10.2); Carbon Dioxide 19 mmol/L (22.0-30.0); Globulin 3.9 g/dL (1.3-3.2); Glucose 285 mg/dl (74-100); Total Protein,Serum 6.6 g/dl (6.3-8.2)
[2022-07-11 09:16] LABS: Anisocytosis 1+; Lymphocytes % 2 % (10-50); Macrocytosis 1+; Monocytes % 1 % (2-9); Neutrophils % 97 % (42-76); Ovalocytes 1+; Platelet Estimate Normal; Total Cells Counted 100
--- NOTE | 2022-07-11 09:24 | EXP.ACUTE.PN ---
Subjective *Date: 07/11/22 *Time: 09:43 Interval history: Patient changed to DNR status yesterday. Nurses noted that he desats quickly if CPAP is not in use. No other new issues noted. Medical Exam Vital signs and Labs for Last 24 Hours: Temp Pulse Resp BP Pulse Ox FiO2 98.8 F 80 20 114/68 94 L 100 07/11/22 08:00 07/11/22 08:29 07/11/22 08:00 07/11/22 08:00 07/11/22 08:29 07/11/22 08:29 Laboratory Results - last 24 hr 07/09/22 16:40: POC Glucose 151 H 07/09/22 21:14: POC Glucose 174 H 07/10/22 05:41: POC Glucose 209 H 07/10/22 11:03: POC Glucose 257 H 07/10/22 12:07: Specimen Source Left radial, O2 % 40l 100%, ABG pH 7.38, ABG pCO2 25.2 L, ABG pO2 56.6 L, ABG HCO3 14.5 L, ABG Total CO2 15.3 L, ABG O2 Saturation 89 L, ABG Base Excess -10.7 L, Tin Test Acceptable 07/10/22 15:59: POC Glucose 281 H 07/10/22 21:17: POC Glucose 224 H 07/11/22 05:14: POC Glucose 261 H 07/11/22 06:00: Specimen Source Right radial, O2 % 100% cpap 12, ABG pH 7.40, ABG pCO2 28.7 L, ABG pO2 74.7 L, ABG HCO3 17.5 L, ABG Total CO2 18.4 L, ABG O2 Saturation 95, ABG Base Excess -5.8 L, Tin Test Acceptable, ABG Lactate 3.4 H 07/11/22 08:35: WBC 11.5 H, RBC 4.14 L, Hgb 12.8 L, Hct 41.5 L, MCV 100.2 H, MCH 31.0, MCHC 31.0 L, RDW 13.5, Plt Count 307 D, MPV 10.3, Neut % (Auto) 95.4 H, Lymph % (Auto) 2.3 L, [place] % (Auto) 2.0, Eos % (Auto) 0.0 L, Baso % (Auto) 0.4, Neut # (Auto) 11.0 H, Lymph # (Auto) 0.3 L, [place] # (Auto) 0.2, Eos # (Auto) 0.0, Baso # (Auto) 0.1, Total Counted 100, Neutrophils % (Manual) 97 H, Lymphocytes % (Manual) 2 L, Monocytes % (Manual) 1 L, Platelet Estimate Normal, Anisocytosis 1+, Macrocytosis 1+, Ovalocytes 1+ 07/11/22 08:35: Sodium 142, Potassium 4.7, Chloride 114 H, Carbon Dioxide 19 L, Anion Gap 13.7, BUN 71 H D, Creatinine 2.30 H, Estimated Creat Clear 27, Estimated GFR 28 L, Est GFR ( Amer) 33 L, Glucose 285 H, Calcium 8.4, Total Bilirubin 1.2, AST 49, ALT 30, Alkaline Phosphatase 139 H, Total Protein 6.6, Albumin 2.7 L, Globulin 3.9 H, Albumin/Globulin Ratio 0.7 L I & O for Labs for Last 24 Hours: Intake & Output 07/08/22 07/09/22 07/10/22 07/11/22 23:59 23:59 23:59 23:59 Intake Total 1742 / 1742 2092 / 2092 473 / 473 Output Total 1950 / 1950 900 / 900 750 / 1050 400 / 400 Balance -208 / -208 1192 / 1192 -277 / -577 -400 / -400 Weight 169 lb 12.095 oz 171 lb 1.259 oz 137 lb 14.4 oz 161 lb 1 oz Constitutional: somnolent Respiratory: crackles and diminished air movement Cardiac: Reg Rate and Rhythm GI: soft, tenderness or normal bowel sounds Assessment and Plan *Assessment and plan (1) COVID-19 virus infection: Status: Acute Category: Medical Code(s): U07.1 - COVID-19 (2) Generalized weakness: Status: Acute Category: Medical Code(s): R53.1 - Weakness (3) Acute respiratory failure with hypoxia: Status: Acute Category: Medical Code(s): J96.01 - Acute respiratory failure with hypoxia (4) Diabetes mellitus: Status: Chronic Qualifiers: Diabetes mellitus complication status: with other specified complication 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 Diabetes mellitus type: type 2 Qualified Code(s): E11.69 - Type 2 diabetes mellitus with other specified complication Category: Medical Code(s): E11.9 - Type 2 diabetes mellitus without complications (5) Chronic systolic heart failure: Status: Chronic Category: Medical Code(s): I50.22 - Chronic systolic (congestive) heart failure (6) Ischemic cardiomyopathy: Status: Chronic Category: Medical Code(s): I25.5 - Ischemic cardiomyopathy (7) History of stroke: Status: Chronic Category: Medical Code(s): Z86.73 - Personal history of transient ischemic attack (TIA), and cerebral infarction without residual deficits (8) Hypoxia: Status: Acute Category: Medical Code(s): R09.02 -
[2022-07-11 11:55] LABS: POC Glucose,Bedside 245 (70-110)
[2022-07-11 17:02] LABS: POC Glucose,Bedside 255 (70-110)
--- NOTE | 2022-07-11 17:56 | PC.NURSE ---
No acute changes. Patient still dependent on cpap machine. When mask was taken off for medications patient desatted to 60's, mask put back on and pt able to recover back into 90's slowly. Lung sounds fine crackles throughout. VS stable. Patient turned q2 throughout shift.
--- NOTE | 2022-07-11 22:03 | PC.NURSE ---
David at [facility] contacted at this time to ask about the compatibility of sodium bicarb and cefipime, David states that they are compatible and can be given together
[2022-07-12] VITALS (13 sets, daily range): BP systolic 98–142; BP diastolic 56–79; PULSE 80–111; RESP 20–35; TEMP 36.7–37; O2SAT 64–94
--- NOTE | 2022-07-12 04:31 | PC.NURSE ---
pt has remained on CPAP t/o shift, O2 sats have been 93-95%, HR 86-100, rhonchi noted on auscultation, olivas remains in place, 400 mL out so far this shift
--- NOTE | 2022-07-12 07:08 | EXP.ACUTE.PN ---
Subjective *Date: 07/12/22 *Time: 07:10 Interval history: Nurse noted patient had a lot of difficulty swallowing pills last night. Medical Exam Vital signs and Labs for Last 24 Hours: Temp Pulse Resp BP Pulse Ox FiO2 98.1 F 98 H 32 H 123/79 91 L 100 07/12/22 04:00 07/12/22 06:00 07/12/22 06:00 07/12/22 06:00 07/12/22 06:00 07/11/22 08:29 Laboratory Results - last 24 hr 07/11/22 08:35: WBC 11.5 H, RBC 4.14 L, Hgb 12.8 L, Hct 41.5 L, MCV 100.2 H, MCH 31.0, MCHC 31.0 L, RDW 13.5, Plt Count 307 D, MPV 10.3, Neut % (Auto) 95.4 H, Lymph % (Auto) 2.3 L, [place] % (Auto) 2.0, Eos % (Auto) 0.0 L, Baso % (Auto) 0.4, Neut # (Auto) 11.0 H, Lymph # (Auto) 0.3 L, [place] # (Auto) 0.2, Eos # (Auto) 0.0, Baso # (Auto) 0.1, Total Counted 100, Neutrophils % (Manual) 97 H, Lymphocytes % (Manual) 2 L, Monocytes % (Manual) 1 L, Platelet Estimate Normal, Anisocytosis 1+, Macrocytosis 1+, Ovalocytes 1+ 07/11/22 08:35: Sodium 142, Potassium 4.7, Chloride 114 H, Carbon Dioxide 19 L, Anion Gap 13.7, BUN 71 H D, Creatinine 2.30 H, Estimated Creat Clear 27, Estimated GFR 28 L, Est GFR ( Amer) 33 L, Glucose 285 H, Calcium 8.4, Total Bilirubin 1.2, AST 49, ALT 30, Alkaline Phosphatase 139 H, Total Protein 6.6, Albumin 2.7 L, Globulin 3.9 H, Albumin/Globulin Ratio 0.7 L 07/11/22 11:39: POC Glucose 245 H 07/11/22 16:51: POC Glucose 255 H I & O for Labs for Last 24 Hours: Intake & Output 07/09/22 07/10/22 07/11/22 07/12/22 23:59 23:59 23:59 23:59 Intake Total 2091 / 2091 473 / 473 471 / 471 357 / 357 Output Total 900 / 900 750 / 1050 900 / 900 400 / 400 Balance 1192 / 1192 -277 / -577 -429 / -429 -43 / -43 Weight 171 lb 1.259 oz 137 lb 14.4 oz 161 lb 1 oz Constitutional: somnolent Respiratory: crackles and diminished air movement Cardiac: Reg Rate and Rhythm GI: soft, tenderness or normal bowel sounds Assessment and Plan *Assessment and plan (1) COVID-19 virus infection: Status: Acute Category: Medical Code(s): U07.1 - COVID-19 (2) Generalized weakness: Status: Acute Category: Medical Code(s): R53.1 - Weakness (3) Acute respiratory failure with hypoxia: Status: Acute Category: Medical Code(s): J96.01 - Acute respiratory failure with hypoxia (4) Diabetes mellitus: Status: Chronic Qualifiers: Diabetes mellitus complication status: with other specified complication Diabetes mellitus care home insulin use: without care home use Diabetes mellitus type: type 2 Qualified Code(s): E11.69 - Type 2 diabetes mellitus with other specified complication Category: Medical Code(s): E11.9 - Type 2 diabetes mellitus without complications (5) Chronic systolic heart failure: Status: Chronic Category: Medical Code(s): I50.22 - Chronic systolic (congestive) heart failure (6) Ischemic cardiomyopathy: Status: Chronic Category: Medical Code(s): I25.5 - Ischemic cardiomyopathy (7) History of stroke: Status: Chronic Category: Medical Code(s): Z86.73 - Personal history of transient ischemic attack (TIA), and cerebral infarction without residual deficits (8) Hypoxia: Status: Acute Category: Medical Code(s): R09.02 - Hypoxemia (9) SHANNON (acute kidney injury): Status: Acute Category: Medical Code(s): N17.9 - Acute kidney failure, unspecified (10) Swallowing difficulty: Status: Acute Category: Medical Code(s): R13.10 - Dysphagia, unspecified Assessment and plan all Dx Assessment and Plan All Dx:: Patient continues to decline, O2 sats in low 90's now on 100% FiO2 via CPAP. Stop all oral meds today.
[2022-07-12 08:45] LABS: Alanine Aminotransferase 28 U/L (12-78); Albumin Level 2.3 g/dl (3.5-5.0); Albumin/Globulin Ratio 0.7 (1.1-1.8); Alkaline Phosphatase 121 U/L (38-126); Anion Gap 17.2 mEq/L (5-15); Aspartate Amino Transferase 65 U/L (17-59); Bilirubin,Total 1.9 mg/dl (0.2-1.3); Carbon Dioxide 17 mmol/L (22.0-30.0); Chloride 120 mmol/L (98-107); Creatinine Clearance Estimated 37 mL/min (50-200); Estimated Glomerular Filt Rate 39 ml/min (>60); GFR (African American) 47 ML/MIN (>60); Globulin 3.5 g/dL (1.3-3.2); Glucose 239 mg/dl (74-100); Sodium 147 mmol/L (136-145); Total Protein,Serum 5.8 g/dl (6.3-8.2)
[2022-07-12 08:51] LABS: Blood Urea Nitrogen 84 mg/dl (9-20); Potassium 7.2 mmoL/L (3.5-5.1)
[2022-07-12 09:45] LABS: Potassium 6.5 mmoL/L (3.5-5.1)
--- NOTE | 2022-07-12 10:05 | EXP.PHA.PN ---
Subjective *Date: 07/12/22 *Time: 10:05 Medical Exam Vital signs and Labs for Last 24 Hours: Temp Pulse Resp BP Pulse Ox FiO2 98.1 F 80 27 H 128/69 94 L 100 07/12/22 04:00 07/12/22 08:00 07/12/22 08:00 07/12/22 08:00 07/12/22 08:00 07/11/22 08:29 Laboratory Results - last 24 hr 07/11/22 11:39: POC Glucose 245 H 07/11/22 16:51: POC Glucose 255 H 07/12/22 08:13: Sodium 147 H, Potassium 7.2 H* D, Chloride 120 H, Carbon Dioxide 17 L, Anion Gap 17.2 H, BUN 84 H, Creatinine 1.70 H D, Estimated Creat Clear 37, Estimated GFR 39 L, Est GFR ( Amer) 47 L D, Glucose 239 H, Calcium 8.0 L, Total Bilirubin 1.9 H, AST 65 H D, ALT 28, Alkaline Phosphatase 121, Total Protein 5.8 L, Albumin 2.3 L D, Globulin 3.5 H, Albumin/Globulin Ratio 0.7 L 07/12/22 09:19: Potassium 6.5 H* I & O for Labs for Last 24 Hours: Intake & Output 07/09/22 07/10/22 07/11/22 07/12/22 23:59 23:59 23:59 23:59 Intake Total 2092 / 2092 473 / 473 471 / 471 357 / 357 Output Total 900 / 900 750 / 1050 900 / 900 400 / 400 Balance 1192 / 1192 -277 / -577 -429 / -429 -43 / -43 Weight 77.6 kg 62.55 kg 73.057 kg The patient's infection will respond to the chosen ABx?: Yes Is the patient receiving the right drug, dose, and route?: Yes Could a more targeted ABx be ordered?: No (EMPIRIC THERAPY AT THIS TIME)
--- NOTE | 2022-07-12 11:43 | PC.NURSE ---
Spoke with Dr. Conteh about family visited pt and wants comfort care to be started. This was initiated.
--- NOTE | 2022-07-12 11:45 | PC.NURSE ---
Spoke with Dr. Gonzalez about pt changed to comfort care.
[2022-07-12 17:26] LABS: POC Glucose,Bedside 257 (70-110)
[2022-07-12 17:26] LABS: POC Glucose,Bedside 195 (70-110)
--- NOTE | 2022-07-12 20:40 | PC.NURSE ---
Pt spontaneously opens eyes, is confused and responsive only to pain. and daughter came to visit at [address] pts on comfort measures. We called Dr Conteh and he gave verbal orders. We placed PT on venti mask at 50% and his sats stated in the 70s and high 60s. He has been restless until we gave him 0.5mg of ativan, and morphine. Once this was initiate he seemed much more comfortable. He has been resting well since we started these measures.
[2022-07-13] VITALS: PULSE 100
[2022-07-13 04:00] VITALS: PULSE 90
--- NOTE | 2022-07-13 04:36 | PC.NURSE ---
pt has been medicated for pain per mar X2. he has rested well most of the night. he had a bed bath and linen change this shift. small skin tear noted to back and open area on coccyx. he responds to light pain. will continue comfort measures.
[2022-07-13 04:41] VITALS: BMI 26.4
[2022-07-13 07:21] LABS: Alanine Aminotransferase 24 U/L (12-78); Albumin/Globulin Ratio 0.7 (1.1-1.8); Alkaline Phosphatase 95 U/L (38-126); Anion Gap 13.3 mEq/L (5-15); Aspartate Amino Transferase 51 U/L (17-59); Bilirubin,Total 1.8 mg/dl (0.2-1.3); Carbon Dioxide 18 mmol/L (22.0-30.0); Chloride 124 mmol/L (98-107); Creatinine Clearance Estimated 32 mL/min (50-200); Estimated Glomerular Filt Rate 34 ml/min (>60); GFR (African American) 42 ML/MIN (>60); Glucose 365 mg/dl (74-100); Sodium 149 mmol/L (136-145)
[2022-07-13 07:37] LABS: Blood Urea Nitrogen 106 mg/dl (9-20); Potassium 6.3 mmoL/L (3.5-5.1)
[2022-07-13 08:00] VITALS: BP 86/45; PULSE 111; PULSE 97; PULSE 98; RESP 14; RESP 26; TEMP 37.2; O2SAT 72
--- NOTE | 2022-07-13 09:40 | EXP.ACUTE.PN ---
Subjective *Date: 07/13/22 *Time: 09:40 Interval history: Patient was changed to comfort measures only yesterday afternoon. No new issues reported. Medical Exam Vital signs and Labs for Last 24 Hours: Temp Pulse Resp BP Pulse Ox FiO2 98.9 F 111 H 26 H 86/45 L 72 L 50 07/13/22 08:00 07/13/22 08:00 07/13/22 08:00 07/13/22 08:00 07/13/22 08:00 07/13/22 08:00 Laboratory Results - last 24 hr 07/11/22 20:33: POC Glucose 257 H 07/12/22 05:34: POC Glucose 195 H 07/12/22 09:19: Potassium 6.5 H* 07/13/22 06:38: Sodium 149 H, Potassium 6.3 H*, Chloride 124 H, Carbon Dioxide 18 L, Anion Gap 13.3, BUN 106 H* D, Creatinine 1.90 H, Estimated Creat Clear 32, Estimated GFR 34 L, Est GFR ( Amer) 42 L, Glucose 365 H D, Calcium 8.0 L, Total Bilirubin 1.8 H, AST 51, ALT 24, Alkaline Phosphatase 95, Total Protein 5.0 L, Albumin 2.0 L D, Globulin 3.0, Albumin/Globulin Ratio 0.7 L I & O for Labs for Last 24 Hours: Intake & Output 07/10/22 07/11/22 07/12/22 07/13/22 23:59 23:59 23:59 23:59 Intake Total 473 / 473 471 / 471 357 / 357 Output Total 750 / 1050 900 / 900 850 / 850 300 / 300 Balance -277 / -577 -429 / -429 -493 / -493 -300 / -300 Weight 137 lb 14.4 oz 161 lb 1 oz 154 lb 12.8 oz Microbiology Reports for the Last 24 Hours: Microbiology 07/07/22 16:34 Blood Blood Culture - Final NO GROWTH AFTER 5 DAYS 07/07/22 16:34 Blood Blood Culture - Final NO GROWTH AFTER 5 DAYS Constitutional: somnolent Respiratory: diminished air movement Cardiac: Reg Rate and Rhythm Assessment and Plan *Assessment and plan (1) COVID-19 virus infection: Status: Acute Category: Medical Code(s): U07.1 - COVID-19 (2) Generalized weakness: Status: Acute Category: Medical Code(s): R53.1 - Weakness (3) Acute respiratory failure with hypoxia: Status: Acute Category: Medical Code(s): J96.01 - Acute respiratory failure with hypoxia (4) Diabetes mellitus: Status: Chronic Qualifiers: Diabetes mellitus type: type 2 Diabetes mellitus penitentiary insulin 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 Diabetes mellitus complication status: with other specified complication Qualified Code(s): E11.69 - Type 2 diabetes mellitus with other specified complication Category: Medical Code(s): E11.9 - Type 2 diabetes mellitus without complications (5) Chronic systolic heart failure: Status: Chronic Category: Medical Code(s): I50.22 - Chronic systolic (congestive) heart failure (6) Ischemic cardiomyopathy: Status: Chronic Category: Medical Code(s): I25.5 - Ischemic cardiomyopathy (7) History of stroke: Status: Chronic Category: Medical Code(s): Z86.73 - Personal history of transient ischemic attack (TIA), and cerebral infarction without residual deficits (8) Hypoxia: Status: Acute Category: Medical Code(s): R09.02 - Hypoxemia (9) SHANNON (acute kidney injury): Status: Acute Category: Medical Code(s): N17.9 - Acute kidney failure, unspecified (10) Swallowing difficulty: Status: Acute Category: Medical Code(s): R13.10 - Dysphagia, unspecified Assessment and plan all Dx Assessment and Plan All Dx:: Continue end of life comfort care.
--- NOTE | 2022-07-13 10:02 | PC.NURSE ---
0727- Notified of critical K+ and BUN. Verified name, and room number w/ KYessi Hubbard in lab 0800- Notified MD Conteh during morning rounds. New order to discontinue any future labs. Pt is Comfort Measures Only 0945- Notified of positive MRSA swab. Verified name, and room number w/ TYessi Jorgensen in lab [id number]- Notified MD Conteh during AM rounds. NNO.
--- NOTE | 2022-07-13 10:41 | PC.NURSE ---
Updated family of pt status at this time, all questions and concerns answered.
[2022-07-13 12:00] VITALS: PULSE 100
[2022-07-13 16:00] VITALS: PULSE 90
--- NOTE | 2022-07-13 18:17 | PC.NURSE ---
Pt remains on 50% venti mask w/ o2 sats [id number] HR has been in mid to upper 90's this shift. Pt's GCS is a 6. Small amount of cloudy, zeyad colored urine w/ sediment and mucus noted in the olivas tube. No BM this shift. Pt has been a q2h turn and q2h oral care. PRn ativan and PRN morphine have been given as needed. Pt appears comfortable. No other acute changes.
[2022-07-13 20:00] VITALS: BP 83/52; PULSE 100; PULSE 98; RESP 19; TEMP 37.2; O2SAT 75; O2SAT 77
[2022-07-14] VITALS: PULSE 100
[2022-07-14 04:00] VITALS: PULSE 110
--- NOTE | 2022-07-14 04:04 | PC.NURSE ---
PT HAS REMAINED STABLE T/O SHIFT. NO ACUTE CHANGES NOTED. PT HAS SLEPT, AND REMAINED UNAWARE T/O SHIFT. PT HAS BEEN TURNED Q2H, WITH ORAL CARE PROVIDED. F/C PRESENT DRAINING SMALL AMOUNTS OF DARK YELLOW URINE. 50% VENTI MASK IN PLACE, O2 SAT 72-75% THUS FAR. NO NEEDS OR C/O VOICED, PT APPEARING COMFORTABLE AND RESTING THROUGH SHIFT. VSS.
[2022-07-14 05:00] VITALS: BMI 27.8
[2022-07-14 07:53] VITALS: BP 79/47; PULSE 109; RESP 19; TEMP 38.4; O2SAT 75
[2022-07-14 08:00] VITALS: PULSE 100; PULSE 110; RESP 20
--- NOTE | 2022-07-14 08:59 | P.PN_ITS ---
Subjective *Date: 07/14/22 *Time: 08:59 Interval history: Patient unchanged, receiving comfort care. Medical Exam Vital signs and Labs for Last 24 Hours: Temp Pulse Resp BP Pulse Ox FiO2 101.1 F H 109 H 19 79/47 L 75 L 50 07/14/22 07:53 07/14/22 07:53 07/14/22 07:53 07/14/22 07:53 07/14/22 07:53 07/13/22 20:00 I & O for Labs for Last 24 Hours: Intake & Output 07/11/22 07/12/22 07/13/22 07/14/22 23:59 23:59 23:59 23:59 Intake Total 471 / 471 357 / 357 0 / 0 Output Total 900 / 900 850 / 850 750 / 750 300 / 300 Balance -429 / -429 -493 / -493 -750 / -750 -300 / -300 Weight 161 lb 1 oz 154 lb 12.8 oz 163 lb 2 oz Microbiology Reports for the Last 24 Hours: Microbiology 07/09/22 11:45 Nose - Nasal MRSA Culture - Final Constitutional: somnolent Respiratory: diminished air movement Cardiac: Reg Rate and Rhythm Assessment and Plan *Assessment and plan (1) COVID-19 virus infection: Status: Acute Category: Medical Code(s): U07.1 - COVID-19 (2) Generalized weakness: Status: Acute Category: Medical Code(s): R53.1 - Weakness (3) Acute respiratory failure with hypoxia: Status: Acute Category: Medical Code(s): J96.01 - Acute respiratory failure with hypoxia (4) Diabetes mellitus: Status: Chronic Qualifiers: Diabetes mellitus type: type 2 Diabetes mellitus long term care phlebotomist insulin use: without [facility] use Diabetes mellitus complication status: with other specified complication Qualified Code(s): E11.69 - Type 2 diabetes mellitus with other specified complication Category: Medical Code(s): E11.9 - Type 2 diabetes mellitus without complications (5) Chronic systolic heart failure: Status: Chronic Category: Medical Code(s): I50.22 - Chronic systolic (congestive) heart failure (6) Ischemic cardiomyopathy: Status: Chronic Category: Medical Code(s): I25.5 - Ischemic cardiomyopathy (7) History of stroke: Status: Chronic Category: Medical Code(s): Z86.73 - Personal history of transient ischemic attack (TIA), and cerebral infarction without residual deficits (8) Hypoxia: Status: Acute Category: Medical Code(s): R09.02 - Hypoxemia (9) SHANNON (acute kidney injury): Status: Acute Category: Medical Code(s): N17.9 - Acute kidney failure, unspecified (10) Swallowing difficulty: Status: Acute Category: Medical Code(s): R13.10 - Dysphagia, unspecified Assessment and plan all Dx Assessment and Plan All Dx:: Continue end of life comfort care.
--- NOTE | 2022-07-14 10:50 | EXP.EVENT.NO ---
Pulmonary was informed the patient was hospice/comfort care at this point of time. We will sign off at this point of time. Please call with any further questions or concerns. Plan informed the nursing staff and primary team.
[2022-07-14 12:00] VITALS: PULSE 110
[2022-07-14 16:00] VITALS: PULSE 110
--- NOTE | 2022-07-14 17:37 | PC.NURSE ---
Called to let her know that pts condition has changed. I informed her that she is welcome to come up to visit with pt. She stated that her daughter gets off at 1830 and they may come up after that.
--- NOTE | 2022-07-14 18:25 | PC.NURSE ---
Called to let her know that her passed at 1830. She stated that she did not want to come up to see the patient. [facility] [place].
--- NOTE | 2022-07-14 18:32 | PC.NURSE ---
Spoke with Latoya Kuhn from [facility] case number is [id number].
--- NOTE | 2022-07-14 18:54 | PC.NURSE ---
Called home and let them know to get pt.
--- NOTE | 2022-07-14 21:44 | EXP.DC.SUM ---
General Admission date:: 07/08/22 Discharge date: 07/14/22 HPI HPI HPI: Mr. Machado is a 76-year-old male patient with a history of coronary artery disease, ischemic cardiomyopathy, type 2 diabetes mellitus, depression, prostatitis, pneumonia with sepsis and chronic kidney disease was brought in by ambulance to the emergency room complaining of weakness. He stated that he had been sick for the last couple of days. On day of admission he was unable to get up and walk. In the emergency room temperature was found to be 99.2. He was given a liter of IV fluids. He had a CT of the chest which showed mild cardiomegaly and atelectatic changes in the right upper lobe and left lung base. noted that he had not been eating well but was drinking fluids well. Patient was noted to be coughing in the emergency room. The patient did state that he been coughing for about a week. At this time he denied fever vomiting, diarrhea and chest and abdominal pain. He was given a liter of IV fluids. O2 sats were noted to be 76% on room air and he was placed on 5 L per nasal cannula in the ER. AM after admission with exam patient denied pain and shortness of breath. He basically said no to all questions. He states he ate a little bit of breakfast. Hospital Course Hospital Course Hospital Course: The patient was found to be COVID-positive and have pneumonia. He was dehydrated and was continued on IV fluids. He was started on COVID protocol and was on Vapotherm initially at 80/25 with oxygen sats in the 90s. Cardiology was consulted and recommended holding diuretic/Entresto until his creatinine improved. They also wanted to repeat his echo. The patient's oxygen level dropped and his Vapotherm had to be increased and a nonrebreather mask had to be added. Pulmonology was therefore consulted. Pulmonology felt the patient had hypoxic respiratory failure. A repeat chest x-ray showed significant worsening of his pulmonary infiltrates. He was initiated on remdesivir and dexamethasone upon admission. Pulmonology felt a head CT may be required to evaluate for his altered mentation. He wanted the patient transferred to the stepdown unit and placed in proning protocol. He wanted him continued on high flow nasal oxygen to maintain an oxygen saturation of 90% or above. He initiated the patient on vancomycin and cefepime. His oxygen continue to decrease. Repeat ABG showed worsening metabolic acidosis with respiratory compensation. He was initiated on a bicarb infusion. The patient did have a CT of the chest which showed bilateral diffuse dense airspace disease. His CT of his head showed no acute changes. His D-dimer was elevated, but his lower extremity Doppler was negative for DVT. His blood cultures showed no growth at 48 hours and his respiratory viral PCR panel was negative. The patient's case was discussed with his family and he was made a DNR. He was placed on a CPAP due to increased oxygen needs and he would desat quickly if the CPAP was not used. His renal function began to worsen. He began having difficulty swallowing his medications. His oxygen continued to decline and his sats were in the low 90s on 100% FiO2 via CPAP. All of his oral medications were discontinued. By 07/13/2022 the patient was changed to comfort measures only. The patient on 07/14/2022 at 1830 and his remains were released to [facility] [place]. Exam Data for Last 24 hours Vital signs and Labs for Last 24 Hours: Temp Pulse Resp BP Pulse Ox FiO2 101.1 F H 110 H 20 79/47 L 75 L 50 07/14/22 07:53 07/14/22 16:00 07/14/22 08:00 07/14/22 07:53 07/14/22 07:53 07/13/22 20:00 I & O for Last 24 hours: Intake & Output 07/12/22 07/13/22 07/14/22 07/15/22 11:59 11:59 11:59 11:59 Intake Total 828 / 828 0 / 0 Output Total 900 / 900 800 / 800 700 / 700 50 / 50 Balance -72 / -72 -800 / -800 -700 / -700 -50 / -50 Weight 154 lb 12.8 oz 163 l
== END 2022-07-14 18:20 | disposition expired | DRG 177 ==
LOC: ER 17:32 → 2ND 18:53 → ICU 07-09 11:34 → 2ND 07-12 14:54 → ICU 07-12 14:56 → 2ND 07-12 15:16
PROVIDERS: Family Medicine; Internal Medicine Pulmonary Disease; Admitting Provider Family Medicine; Emergency Provider Emergency Medicine; PCP Family Medicine; Visit Provider Family Medicine
DX: U07.1 COVID-19 (principal); J12.82 Pneumonia due to coronavirus disease 2019; J96.01 Acute respiratory failure with hypoxia; J96.02 Acute respiratory failure with hypercapnia; I50.22 Chronic systolic (congestive) heart failure; N17.9 Acute kidney failure, unspecified; I69.354 Hemiplegia and hemiparesis following cerebral infarction affecting left non-dominant side; I25.5 Ischemic cardiomyopathy; N18.9 Chronic kidney disease, unspecified; Z87.891 Personal history of nicotine dependence; I48.0 Paroxysmal atrial fibrillation; Z95.1 Presence of aortocoronary bypass graft; Z95.810 Presence of automatic (implantable) cardiac defibrillator; I25.10 Atherosclerotic heart disease of native coronary artery without angina pectoris; E11.22 Type 2 diabetes mellitus with diabetic chronic kidney disease; E87.5 Hyperkalemia; Z51.5 Encounter for palliative care
CPT/HCPCS: 36415; 70450; 71045; 71250; 80048; 80053; 81001; 82803; 82962; 83605; 83615; 83880; 84132; 84484; 85007; 85025; 85378; 86140; 87040; 87081; 87486; 87581; 87632; 87798; 93005; 93306; 93970; 94640; 94660; 94760; 94761; 99285; C9803; G0378; J0692; U0003; U0005